=== PATIENT | female | born 1975 | race Caucasian/White ===

== ENCOUNTER 2017-04-14 12:39 | Inpatient (IN) | payer MEDICAID ==
[~2017-04-14] VITALS: Ht 175.3 cm; Wt 139.4 kg
[~2017-04-14 12:39] MED LIST: ALBUTEROL-200 PUFFS/ IH; DILAUDID4 MG PO; HYDROCHLOROTHIA25 M1 PO; LIPITOR40 MG PO; LISINOPRIL 10MG10 MG PO; NICOTINE T21 MG/24 H TD; PHENERGAN 25MG.25 M1 PO; SYMBICORT1 AER IH
[2017-04-14 12:46] VITALS: BP 190/100
[2017-04-14] MEDS ORDERED: COZAAR50 MG PO (12:53)
[2017-04-14] MEDS ORDERED: GABAPENTIN300 M1 PO (12:53)
[2017-04-14] MEDS ORDERED: ATORVASTATIN CA40 MG PO (12:53)
[2017-04-14] MEDS ORDERED: CARVEDILOL6.25 MG PO (12:54)
[2017-04-14] MEDS ORDERED: VOLTAREN50 MG PO (12:54)
[2017-04-14 13:14] LABS: LYMPH # 2.1 K/mm3 (0.7-4.5); LYMPH % 21.7 % (10-50.0)
--- NOTE | 2017-04-14 13:22 | RADIOLOGY REPORT PS360 ---
CHEST-PORTABLE HISTORY: Shortness of air SOA ORDERING PHYSICIAN: PATIENT AGE: 41 years COMPARISON: None available FINDINGS: The cardiomediastinal silhouette and pulmonary vascularity are within normal limits. There are increased markings in the left lung base and the right infrahilar region which may be due to atelectasis and/or infiltrate. Upright PA and lateral chest may be of further value to confirm these findings. The upper lobes are clear. No acute bony anomalies. IMPRESSION: Atelectasis or infiltrate in the right infrahilar region and left lung base.
[2017-04-14 13:24] LABS: HEMOGLOBIN 15.3 g/dL (12.2-16.2)
--- OUTSIDE RECORDS SUMMARY | 2017-04-14 13:24 | External Medical Summary Rpt | CCD ---
Author Author , LEAH LYNN Address Unknown Phone [email or web address] Purpose Continuity of Care Document - 02-23-2013 through 2016 Results Labs Lab Lab Date Result Refere Interp Status Commen Order Detail nces retati t Range on Bacteria identified in Blood by Culture (05-28-2015 13:07) STATUS PRELIMI complet 015 NARY ed 13:07 RESULT NO complet 015 GROWTH ed 13:07 AT 1 DAY RESULTE LMM complet D BY 015 ed 13:07 STATUS FINAL complet 015 ed 13:07 RESULT NO complet 015 GROWTH ed 13:07 5 DAYS RESULTE MDA complet D BY 015 ed 13:07 SEND Y complet PHARM/I 015 ed C 13:07 SEND TO Y complet ER 015 ed 13:07 Bacteria identified in Blood by Culture (05-28-2015 12:38) STATUS PRELIMI complet 015 NARY ed 12:38 RESULT NO complet 015 GROWTH ed 12:38 AT 1 DAY RESULTE LMM complet D BY 015 ed 12:38 STATUS FINAL complet 015 ed 12:38 RESULT NO complet 015 GROWTH ed 12:38 5 DAYS RESULTE MDA complet D BY 015 ed 12:38 SEND Y complet PHARM/I 015 ed C 12:38 SEND TO Y complet ER 015 ed 12:38 Comprehensive metabolic 1998 panel in Serum or Plasma (05-28-2015 12:38) Sodium 136 136 - complet [Moles/ 015 mmol/L 145 ed volume] 12:38 in Serum or Plasma Potassi 3.9 3.5 - complet um 015 mmol/L 5.1 ed [Moles/ 12:38 volume] in Serum or Plasma Chlorid 98 98 - complet e 015 mmol/L 107 ed [Moles/ 12:38 volume] in Serum or Plasma Carbon 29 21 - 32 complet dioxide 015 mmol/L ed , total 12:38 [Moles/ volume] in Blood Anion 13 5 - 15 complet gap in 015 mmol/L ed Serum 12:38 or Plasma Glucose 111 70 - complet 015 mg/dl 120 ed [Mass/v 12:38 olume] in Serum or Plasma Urea 7 mg/dl 7 - 18 complet nitroge 015 ed n 12:38 [Mass/v olume] in Serum or Plasma Creatin 0.8 0.6 - complet ine 015 mg/dl 1.3 ed [Mass/v 12:38 olume] in Serum or Plasma AGE [age] yrs complet 015 ed 12:38 GFR >60 complet 015 ed 12:38 Urea 9 ratio 6 - 25 complet nitroge 015 ed n/Creat 12:38 inine [Mass ratio] in Serum or Plasma Osmolal 271 272 - Low complet ity of 015 295 ed Unspeci 12:38 fied specime n Calcium 9.1 8.5 - complet 015 mg/dl 10.1 ed [Mass/v 12:38 olume] in Serum or Plasma Bilirub 0.4 0.2 - complet in.tota 015 mg/dl 1.0 ed l 12:38 [Mass/v olume] in Serum or Plasma Asparta 16 IU/L 15 - 37 complet te 015 ed aminotr 12:38 ansfera se [Enzyma tic activit y/volum e] in Serum or Plasma Alanine 32 IU/L 12 - 78 complet 015 ed aminotr 12:38 ansfera se [Enzyma tic activit y/volum e] in Serum or Plasma Alkalin 63 IU/L 46 - complet e 015 116 ed phospha 12:38 tase [Enzyma tic activit y/volum e] in Serum or Plasma Protein 8.1 6.4 - complet 015 g/dl 8.2 ed [Mass/v 12:38 olume] in Serum or Plasma Albumin 3.6 3.4 - complet 015 g/dl 5.0 ed [Mass/v 12:38 olume] in Serum or Plasma Albumin 4.5 1.3 - High complet /Globul 015 g/dl 3.5 ed in 12:38 [Mass ratio] in Serum or Plasma Albumin 0.8 1.0 - Low complet /Globul 015 ratio 3.9 ed in 12:38 [Mass ratio] in Serum or Plasma Natriutietic peptide B [Mass/volume] in Serum or Plasma (05-28-2015 12:38) Natriut 82 0 - 131 complet ietic 015 pg/ml ed peptide 12:38 B [Mass/v olume] in Serum or Plasma Additio NO complet nal 015 ed comment 12:38 s RFC CBC W DIFF AUTOMATED (05-28-2015 12:38) Leukocy 13.8 4.5 - High complet dixon 015 K/uL 11.5 ed [#/volu 12:38 me] in Blood by Automat ed count Erythro 5.35 4.00 - complet cytes 015 M/uL 5.40 ed [#/volu 12:38 me] in Blood by Automat ed count Hemoglo 15.7 12.0 - High complet bin 015 g/dL 15.0 ed [Mass/v 12:38 olume] in Blood Hematoc 46 % 35 - 49 complet rit 015 ed [Volume 12:38 Fractio n] of Blood by Automat ed count Erythro 86.5 fL 80.0 - complet cyte 015 100 ed mean 12:38 corpusc ular volume [Entiti c volume] by Automat ed count Erythro 29.3 pg 26.0 - complet cyte 015 32.0 ed mean 12:38 corpusc ular hemoglo bin [Entiti c mass] by Automat ed count Erythro 33.9 32.0 - complet cyte 015 g/dL 36.0 ed mean 12:38 corpusc ular hemoglo bin concent ration [Mass/v olume] in Blood from Fetus by Automat ed count Erythro 14.7 % 11.5 - High complet cyte 015 14.5 ed distrib 12:38 ution width [Ratio] by Automat ed count Platele 373 150 - complet ts 015 K/uL 450 ed [#/volu 12:38 me] in Blood by Automat ed count Lymphoc 20.7 % 18.0 - complet ytes/10 015 42.0 ed 0 12:38 leukocy dixon in Blood by Automat ed count Monocyt 4.9 % 2.0 - complet es/100 015 11.0 ed leukocy 12:38 dixon in Blood by Automat ed count Neutrop 72.8 % 50.0 - High complet hils.ba 015 70.0 ed nd 12:38 form/10 0 leukocy dixon in Blood by Manual count Eosinop 1.10 % 1.00 - complet hils/10 015 3.00 ed 0 12:38 leukocy dixon in Blood by Automat ed count Basophi 0.50 % 0.00 - complet ls/100 015 2.00 ed leukocy 12:38 dixon in Blood by Automat ed count Lymphoc 2.84 0.60 - complet ytes/10 015 K/uL 3.40 ed 0 12:38 leukocy dixon in Blood by Automat ed count Monocyt 0.67 0.00 - complet es/100 015 K/uL 0.90 ed leukocy 12:38 dixon in Blood by Automat ed count Neutrop 10.02 2.00 - High complet hils.ba 015 K/uL 6.90 ed nd 12:38 form/10 0 leukocy dixon in Blood by Manual count Eosinop 0.15 0.00 - complet hils/10 015 K/uL 0.70 ed 0 12:38 leukocy dixon in Blood by Automat ed count Basophi 0.07 0.00 - complet ls/100 015 K/uL 0.20 ed leukocy 12:38 dixon in Blood by Automat ed count Manual NOT complet differe 015 INDICAT ed ntial 12:38 ED perform ed [Presen ce] in Blood [id number] (02-23-2013 11:19) *GFR complet 013 only ed 11:19 applies to adults over the age 18. 02-23- If complet 013 patient ed 11:19 is [place] n, multipl y GFR by 1.120. Normal complet 013 Range: ed 11:19 60 Ml/min/ 1.73 sq meters GLOMERU complet 013 LAR ed 11:19 FILTRAT ION RATE INTERPR ETATION A/G 0.9 1.0 - Below complet RATIO 013 ratio 3.90 low ed 11:19 normal GLOBULI 4.1 1.30 - Above complet N 013 g/dl 3.50 high ed 11:19 normal ALBUMIN 3.5 3.40 - complet 013 g/dl 5.0 ed 11:19 TOTAL 7.6 6.40 - complet PROTEIN 013 g/dl 8.20 ed 11:19 ALK 74 IU/L 50 - complet PHOS 013 136 ed 11:19 ALT 20 IU/L 12 - 78 complet (SGPT) 013 ed 11:19 AST 10 IU/L 15 - 37 Below complet (SGOT) 013 low ed 11:19 normal TOTAL 0.3 0.20 - complet BALDOMERO 013 mg/dl 1.0 ed 11:19 CALCIUM 8.8 8.50 - complet 013 mg/dl 10.10 ed 11:19 GFR 60 complet 013 ml/min ed 11:19 AGE [age] yrs complet 013 ed 11:19 CREATIN 1.0 0.60 - complet INE 013 mg/dl 1.30 ed 11:19 BUN 7 mg/dl 7 - 18 complet 013 ed 11:19 GLUCOSE 02-23- 99 70 - complet 013 mg/dl 120 ed 11:19 ANION 02-23- 13 5 - 15 complet GAP 013 mmol/L ed 11:19 TOTAL 02-23- 27 21 - 32 complet CO2 013 mmol/L ed 11:19 CHLORID 02-23- 103 98 - complet E 013 mmol/L 107 ed 11:19 POTASSI 09-17-2 4.2 3.50 - complet UM 013 mmol/L 5.10 ed 11:19 SODIUM 17-2 139 136 - complet 013 mmol/L 145 ed 11:19 [id number] (02-23-2013 11:19) Manual -17-2 NOT complet Diff 013 INDICAT ed 11:19 ED BA# 09-17-2 0.03 0.00 - complet 013 K/uL 0.20 ed 11:19 EO# 09-17-2 0.07 0.00 - complet 013 K/uL 0.70 ed 11:19 NE# 09-17-2 5.00 2.00 - complet 013 K/uL 6.90 ed 11:19 MO# 09-17-2 0.49 0.00 - complet 013 K/uL 0.90 ed 11:19 LY# 09-17-2 2.08 0.60 - complet 013 K/uL 3.40 ed 11:19 BA% 09-17-2 0.40 % 0.00 - complet 013 2.50 ed 11:19 EO% 09-17-2 0.90 % 0.00 - complet 013 7.00 ed 11:19 NE% 09-17-2 65.2 % 37.0 - complet 013 80.0 ed 11:19 MO% 09-17-2 6.4 % 0.0 - complet 013 12.0 ed 11:19 LY% -17-2 27.1 % 10.0 - complet 013 50.0 ed 11:19 PLT 02-23-2 417 142 - complet 013 K/uL 424 ed 11:19 RDW 02-23-2 15.7 % 11.60 - Above complet 013 14.80 high ed 11:19 normal MCHC 02-23-2 32.2 31.80 - complet 013 g/dL 35.40 ed 11:19 MCH 17-2 25.7 pg 27.0 - Below complet 013 31.20 low ed 11:19 normal MCV 02-23- 79.9 fL 80.0 - Below complet 013 97.0 low ed 11:19 normal HCT 02-23-2 41 % 37.70 - complet 013 53.70 ed 11:19 HGB 02-23-2 13.2 12.20 - complet 013 g/dL 18.10 ed 11:19 RBC 5.13 4.04 - complet 013 M/uL 6.13 ed 11:19 WBC 7.7 4.60 - complet 013 K/uL 10.20 ed 11:19 Comprehensive metabolic 1998 panel in Serum or Plasma (02-23-2013 11:19) Sodium 139 136 - complet [Moles/ 013 mmol/L 145 ed volume] 11:19 in Serum or Plasma Potassi 4.2 3.50 - complet um 013 mmol/L 5.10 ed [Moles/ 11:19 volume] in Serum or Plasma Chlorid 103 98 - complet e 013 mmol/L 107 ed [Moles/ 11:19 volume] in Serum or Plasma TOTAL 27 21 - 32 complet CO2 013 mmol/L ed 11:19 ANION 13 5 - 15 complet GAP 013 mmol/L ed 11:19 Glucose 99 70 - complet 013 mg/dl 120 ed [Mass/v 11:19 olume] in Serum or Plasma Urea 7 mg/dl 7 - 18 complet nitroge 013 ed n 11:19 [Mass/v olume] in Serum or Plasma Creatin 1.0 0.60 - complet ine 013 mg/dl 1.30 ed [Mass/v 11:19 olume] in Serum or Plasma AGE 09 37 yrs complet 013 ed 11:19 GFR 60 complet 013 ml/min ed 11:19 Calcium 8.8 8.50 - complet 013 mg/dl 10.10 ed [Mass/v 11:19 olume] in Serum or Plasma Bilirub 0.3 0.20 - complet in.tota 013 mg/dl 1.0 ed l 11:19 [Mass/v olume] in Serum or Plasma Asparta 10 IU/L 15 - 37 Low complet te 013 ed aminotr 11:19 ansfera se [Enzyma tic activit y/volum e] in Serum or Plasma Alanine 20 IU/L 12 - 78 complet 013 ed aminotr 11:19 ansfera se [Enzyma tic activit y/volum e] in Serum or Plasma Alkalin 74 IU/L 50 - complet e 013 136 ed phospha 11:19 tase [Enzyma tic activit y/volum e] in Serum or Plasma Protein 7.6 6.40 - complet 013 g/dl 8.20 ed [Mass/v 11:19 olume] in Serum or Plasma Albumin 3.5 3.40 - complet 013 g/dl 5.0 ed [Mass/v 11:19 olume] in Serum or Plasma GLOBULI 4.1 1.30 - High complet N 013 g/dl 3.50 ed 11:19 A/G 0.9 1.0 - Low complet RATIO 013 ratio 3.90 ed 11:19 GLOMERU complet 013 LAR ed 11:19 FILTRAT ION RATE INTERPR ETATION Normal complet 013 Range: ed 11:19 60 Ml/min/ 1.73 sq meters If complet 013 patient ed 11:19 is [place] n, multipl y GFR by 1.120. *GFR complet 013 only ed 11:19 applies to adults over the age 18. [id number] (02-23-2013 11:19) Leukocy 7.7 4.60 - complet dixon 013 K/uL 10.20 ed [#/volu 11:19 me] in Blood by Automat ed count Erythro 5.13 4.04 - complet cytes 013 M/uL 6.13 ed [#/volu 11:19 me] in Blood by Automat ed count Hemoglo 13.2 12.20 - complet bin 013 g/dL 18.10 ed [Mass/v 11:19 olume] in Blood Hematoc 41 % 37.70 - complet rit 013 53.70 ed [Volume 11:19 Fractio n] of Blood by Automat ed count Erythro 79.9 fL 80.0 - Low complet cyte 013 97.0 ed mean 11:19 corpusc ular volume [Entiti c volume] by Automat ed count Erythro 25.7 pg 27.0 - Low complet cyte 013 31.20 ed mean 11:19 corpusc ular hemoglo bin [Entiti c mass] by Automat ed count Erythro 32.2 31.80 - complet cyte 013 g/dL 35.40 ed mean 11:19 corpusc ular hemoglo bin concent ration [Mass/v olume] by Automat ed count Erythro 15.7 % 11.60 - High complet cyte 013 14.80 ed distrib 11:19 ution width [Ratio] by Automat ed count Platele 417 142 - complet ts 013 K/uL 424 ed [#/volu 11:19 me] in Blood by Automat ed count Lymphoc 27.1 % 10.0 - complet ytes/10 013 50.0 ed 0 11:19 leukocy dixon in Blood by Automat ed count Monocyt 6.4 % 0.0 - complet es/100 013 12.0 ed leukocy 11:19 dixon in Blood by Automat ed count Neutrop 65.2 % 37.0 - complet hils.ba 013 80.0 ed nd 11:19 form/10 0 leukocy dixon in Blood by Manual count Eosinop 0.90 % 0.00 - complet hils/10 013 7.00 ed 0 11:19 leukocy dixon in Blood by Automat ed count Basophi 0.40 % 0.00 - complet ls/100 013 2.50 ed leukocy 11:19 dixon in Blood by Automat ed count Lymphoc 2.08 0.60 - complet ytes/10 013 K/uL 3.40 ed 0 11:19 leukocy dixon in Blood by Automat ed count Monocyt 0.49 0.00 - complet es/100 013 K/uL 0.90 ed leukocy 11:19 dixon in Blood by Automat ed count Neutrop 5.00 2.00 - complet hils.ba 013 K/uL 6.90 ed nd 11:19 form/10 0 leukocy dixon in Blood by Manual count Eosinop 0.07 0.00 - complet hils/10 013 K/uL 0.70 ed 0 11:19 leukocy dixon in Blood by Automat ed count Basophi 0.03 0.00 - complet ls/100 013 K/uL 0.20 ed leukocy 11:19 dixon in Blood by Automat ed count Manual NOT complet Diff 013 INDICAT ed 11:19 ED
--- OUTSIDE RECORDS SUMMARY | 2017-04-14 13:24 | External Medical Summary Rpt | CCD ---
Author Author , LEAH LYNN Address Unknown Phone [email or web address] Purpose Continuity of Care Document - 02-23-2013 [...] ED perform ed [Presen ce] in Blood [id number] (02-23-2013 11:19) *GFR complet 013 only ed [...] - complet 013 mmol/L 145 ed 11:19 [id number] (02-23-2013 11:19) Manual -17-2 NOT complet Diff [...] applies to adults over the age 18. 51695-0 (02-23-2013 11:19) Leukocy 7.7 4.60 - complet [...]
--- NOTE | 2017-04-14 13:26 | Emergency Room Report ---
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 N Clinical Suspician of Infection? N Mental Status: 1 - Regular (Normal Baseline) Sepsis Risk:Possible Sepsis Risk Have you (or family members/close friends) recently traveled outside the [place]? N If Yes, where/when: Have you had exposure to infectious disease within the past month? N TB? Other? Specify: Increased SOB, CXR negative last week per patient report (ordered by PCP); patient received steroid injection last week, and is taking albuterol and Symbicort. Arrives tachypneic, hypoxic, mild respiratory distress, bronchitic cough. Is a smoker. Not sedentary, no OCP ([facility]), no recent travel, no calf pain but hx fibromyalgias, no change in nature of chronic pain syndrome. She has been on inhalers for a little over a year per PCP but denies hx of asthma. ALLERGIES Coded Allergies: latex (Mild, 04/14/17) Home Medications Reported Medications Gabapentin 300 MG PO BID #270 Atorvastatin Calcium 40 MG PO QHS #30 Losartan Potassium (Cozaar) 50 MG OR DAILY Carvedilol (Coreg 3.125MG) 3.125 MG PO BID Diclofenac Sodium (Voltaren 50mg) 50 MG PO DAILY Hydrochlorothiazide (Microzide) 12.5 MG PO EVENINGS Atorvastatin Calcium (Lipitor 20MG) 20 MG PO DAILY BUDESONIDE/FORMOTEROL FUMARATE (Symbicort 80-4.5 Mcg Inhaler) 1 PUFF IH BID Albuterol (Albuterol-Hfa Inhaler) 1 PUFF IH History Medical History General CAD? No Angina: No [place]: No Hypertension? Yes Hyperlipidemia? Yes CHF? Yes DVT? No PE? No COPD? Yes Asthma? No Anemia? No GERD? No Gastric ulcers? No GI Bleed? No Hernia? No Thyroid Problems? No Hypothyroidism? No CVA? No Seizures? No Diabetes? No Renal Insuffiency? No End Stage Renal Disease? No UTI? No Stones? No BPH? No GB Disease: No Nephritic Syndrome? No Asplenia? No Hepatitis? No Sickle Cell Disease? No Arthritis? No Migraines? No Cataracts? No Glaucoma? No MRSA? No HIV? No TB? No Anxiety? No Depression? No Cancer? 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 LMP N/A Family History Family Hx Diabetes Yes CAD Yes Hypertension Yes Hyperlipidemia Yes Cancer Yes TB No Social History Smoking Hx Smoker: Current Every Day Smoker Tobacco: Yes Type Cigarettes Packs/day 1 1/2 - 2 Packs Alcohol Alcohol: No Review of Systems All Other Systems Reviewed and Negative Respiratory see HPI, other (on inhalers x about a year) Physical Exam Vital Signs Vital Signs Date Time Temp Pulse Resp B/P Pulse O2 O2 Flow FiO2 Ox Delivery Rate 04/14 1443 95 24 180/70 91 5 04/14 1335 91 24 185/90 92 5 04/14 1246 98.3 90 24 190/100 90 3 General Appearance normal appearance, WD/WN, mild distress Eye Exam - bilateral eye normal exam, bilateral eye PERRL, bilateral eye abnormal EOM Neck normal inspection, non-tender, supple, full range of motion Respiratory Status Yes: respiratory distress, trachea midline, chest symmetrical, non tender chest, use of accessory muscles, non productive cough (bronchitic cough, tight). No: tender on palpation, pain on inspiration, pain on expiration, productive cough. Lung Sounds bilateral: normal breath sounds, lungs clear, decreased breath sounds. Cardiovascular normal exam, regular rate/rhythm, no peripheral edema, no gallop, no JVD, no murmur, no rub, normal peripheral pulses Peripheral Pulses Pulses normal Yes Gastrointestinal normal bowel sounds, normal exam, non tender, soft, no organomegaly, no guarding (obese) Extremities non-tender, normal range of motion, normal inspection, normal capillary refill, no calf tenderness, no pedal edema Strength 5 Upper Ext (L), 5 Upper Ext (R), 5 Lower Ext (L), 5 Lower Ext (R) Neurologic alert, normal exam, no motor/sensory deficits, oriented x 3 (speech clear and fluent,alert) Glascow Coma Scale Glascow Coma Scale Response Value EYE response: 4 Spontaneously 4 MOTOR response: 6 OBEYS 6 VERBAL response: 5 Oriented & Converses 5 Total 15 Skin intact, normal color, warm/dry Medical Decision Making LABS/Meds/Orders Pt receiving controlled substance in ED? No Results/Orders Laboratory Tests 04/14/17 1300: Lactic Acid 1.8 04/14/17 1300: Sodium 135 L, Potassium 3.9, Chloride 99, Carbon Dioxide 30, BUN 5 L, Creatinine 0.8, Estimated Creat Clear 202 H, Estimated GFR (MDRD) 78, Glucose 92, Calcium 9.3, Total Bilirubin 0.5, AST 15, ALT 24, Alkaline Phosphatase 77, Creatine Kinase 74, CK-MB (CK-2) Rel Index 0.7, CK and CKMB Interp < 0.5, Troponin I < 0.02, Total Protein 8.4 H, Albumin 3.7, Globulin 4.7 H, Albumin/ Globulin Ratio 0.8 L, D-Dimer < 100, WBC 9.9, RBC 5.13, Hgb 15.3, Hct 46.3, MCV 90.3, RDW 14.2, Plt Count 353, MPV 6.5 L, Gran % 72.1, Gran # 7.1, Lymphocytes % 21.7, Monocytes % 4.6, Eosinophils % 1.0, Basophils % 0.6, Lymphocytes # 2.1, Monocytes # 0.5, Eosinophils # 0.1, Basophils # 0.1, PUBS MCHC 32.8, MCH 29.6 Current Medication Orders Sig/Tati Start time Last Medication Dose Route Stop Time Status Admin Ceftriaxone Sodium 0 .STK-MED ONE 04/14 133 DC IV Methylprednisolone 0 .STK-MED ONE 04/14 1332 DC Sodium Succinate .ROUTE Sodium Chloride 50 ML .STK-MED ONE 04/14 1331 DC IV Ceftriaxone Sodium 1 GM ONCE ONE 04/14 1330 DC 04/14 Sodium Chloride 50 ML IV 04/14 1359 1334 Methylprednisolone 125 MG ONCE ONE 04/14 1330 DC 04/14 Sodium Succinate IV 04/14 1331 1333 Albuterol/Ipratropium 0 .STK-MED ONE 04/14 1251 DC INH Albuterol/Ipratropium 3 ML ONCE ONE 04/14 1245 DC 04/14 INH 04/14 1246 1257 Sodium Chloride 10 ML PRN PRN 04/14 1245 AC IV 04/15 1245 Orders Procedure Date/time Status Decision to admit 04/14 1447 Active RT Aerosol Treatment, Provide 04/14 1258 Active ELECTROCARDIOGRAM REQUEST 04/14 124 Active RT REQUEST DUONEB 04/14 1246 Active IV SALINE LOCK 04/14 124 Active CULTURE, BLOOD 04/14 124 Active LACTIC ACID 04/14 124 Complete D-DIMER 04/14 124 Complete CBC WITH AUTO DIFF 04/14 124 Complete CARDIAC ENZYMES 04/14 124 Complete CHEM 12 PROFILE 04/14 124 Complete 12 LEAD [facility] (INITIAL) 04/14 UNK Active CM/EKG CM/EKG EKG rate, NSR, rhythm, no evid. of ischemic chgs, no ectopy, normal QRS, normal VA, normal EKG (NSR 91) XRAY/CT/US XRAY/CT/US XR interpretation by reviewed by me (report reviewed) Xray Results abnormal, atelectasis vs infiltrate LLL and R perihilar per report;( prior CXR had been obtained at [facility] last week; patient indicates it was negative.) Pulmonary Embolism Score WELL'S CRITERIA FOR PE WELL'S CRITERIA FOR PE Response Value Clinical signs/symptoms of DVT NO 0 PE is #1 diagnosis or equally likely NO 0 Heart rate is > 100 NO 0 Immobile at least 3 days, or surgery in past 4 wks NO 0 Previously, obj. diagnosed PE or DVT NO 0 Hemoptysis NO 0 Malignancy w/Rx within 6mo, or palliative NO 0 Total 0 Progress ED Progress Notes Date 04/14/17 Time 1537 Comment Sats in low 90's on oxygen; very tachypneic with any movement but no wheezing. Departure Departure Time of Disposition 1451 Disposition Still a Patient Clinical Impression Primary Impression: Reactive airway disease with wheezing with acute exacerbation Qualifiers: Asthma severity: mild Asthma persistence: intermittent Qualified Code: J45.21 - Mild intermittent asthma with (acute) exacerbation Secondary Impressions: Pneumonia Qualifiers: Pneumonia type: due to unspecified organism Laterality: bilateral Lung location: lower lobe of lung Qualified Code: J18.9 - Pneumonia, unspecified organism Condition STABLE ED Critical Care Critical Care No at 1538
--- OUTSIDE RECORDS SUMMARY | 2017-04-14 13:28 | External Medical Summary Rpt | CCD ---
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, Un[facility] Unavailable Unavailable [facility] JEREMIAH CARSON, JEREMIAH CARSON Unavailable Unavailable [facility], [facility]available Unavailable [facility] Unavailable Unavailable INC, [facility] Unavailable Unavailable HOSPITAL P, [facility] MALKA APPIAH, Unavailable Unavailable MALKA APPIAH [facility], Unavailable Unavailable [facility] KMSF NURSE Unavailable Unavailable PRACTITIONER GR, KMSF NURSE PRACTITIONER GR [facility] [place] Unavailable Unavailable [facility], [facility] [place] Unavailable Unavailable [place] [facility], [facility] [place] [facility] Unavailable [facility] Unavailable Unavailable CH[facility]OPRACTI, [facility] Unavailable Unavailable ASSOCIAT, [facility] Unavailable [facility]available [facility] JAMEEL MOODY MD Unavailable Unavailable CONSULTING SERVJAMEEL MD CONSULTING SERV JAMEEL MOODY MD Unavailable Unavailable CONSULTING SRVJAMEEL MD CONSULTING SRV [facility] Unavailable [facility], Unavailable Unavailable [facility] CLARKE BARRY MD Unavailable Unavailable PSCCLARKE MD P[facility] SCALF LEI, SCALF LEI Unavailable Unavailable SCIFRES, SCIFRES Unavailable Unavailable [facility] Unavailable Unavailable [facility], [facility] Unavailable Unavailable MEDIC, [facility] Unavailable Unavailable RADIOLOG, [facility] Unavailable Unavailable [facility]PITALS, [facility], Unavailable Unavailable [facility] Unavailable [facility] MARY CARMEN NEGRO, Unavailable Unavailable MARY CARMEN NEGRO Purpose Continuity of Care Document - 07-28-2007 through 2016 Problems Code Diagnosis DOS Provider Status [id number] MORBID 02-27-2017 [facility] OBESITY DUE TO EXCESS CALORIES J020 STREPTOCOCC 02-14-2017 [facility] PHARYNGITIS N644 MASTODYNIA 12-23-2016 [facility] [place] [facility] [id number] PAIN IN 11-25-2016 [facility] RIGHT [facility]INIC SHOULDER G4733 OBSTRUCTIVE 10-19-2016 [facility]ATRIC EQUIPME M2550 PAIN IN 10-09-2016 S NURSE UNSPECIFIED PRACTITIONE JOINT R GR M797 FIBROMYALGI 10-09-2016 [facility] A PRACTITIONE R GR Z6842 BODY MASS 10-09-2016 S NURSE INDEX BMI PRACTITIONE 45.0-49.9 R GR ADULT M549 DORSALGIA 09-19-2016 [facility] UNSPECIFIED [facility]ICAL EQUIPME G4710 HYPERSOMNIA 09-06-2016 JAMEEL MOODY MD UNSPECIFIED CONSULTING SRV E785 HYPERLIPIDE 08-29-2016 [facility] MICHELE [place] UNSPECIFIED HOLDINGS G479 SLEEP 08-29-2016 [facility] DISORDER [facility] UNSPECIFIED I10 ESSENTIAL 08-29-2016 [facility] HYPERTENSIO N R5383 OTHER 08-29-2016 [facility] FATIGUE [place] [facility] R7309 OTHER 08-29-2016 [facility] ABNORMAL [place] GLUCOSE HOLDINGS Z720 TOBACCO USE 08-29-2016 [facility] Z8639 PERSONAL HX 08-29-2016 [facility] OT [facility] ENDOCRN NUTRITIONL& METAB DISEASE H5213 MYOPIA 08-16-2016 [facility] BILATERAL H524 PRESBYOPIA 08-16-2016 SC[facility] R911 SOLITARY 07-05-2016 [place] [facility] R918 OTHER 07-05-2016 [facility] [place] NONSPECIFIC [facility] ABNORMAL FINDING OF LUNG FIELD E7800 PURE 07-01-2016 [facility] UNSPECIFIED J449 CHRONIC 07-01-2016 [facility]CT[facility] N [facility]ERG[facility]Y PULMONARY PHYS DISEASE UNS M940 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 [facility] AL JUNCTION N EMERGENCY SYNDROME PHYS TIETZE R0602 SHORTNESS 07-01-2016 [facility] OF BREATH CLINIC R0789 OTHER CHEST 07-01-2016 [facility] PAIN N EMERGENCY PHYS Z12421 OTHER LONG 07-01-2016 [facility] DRUG THERAPY Z888 ALLERGY 07-01-2016 [facility] L60034 LATEX 07-01-2016 [facility] R0989 OT SPEC SX 06-28-2016 [facility] & SIGNS CLINIC INVLV THE CIRC & RESP SYS R05 COUGH 06-05-2016 [facility] [place] [facility] R0689 OTHER 06-05-2016 [facility] ABNORMALITI [facility]INIC ES OF BREATHING R509 FEVER 06-05-2016 [facility] [place] UNSPECIFIED RADIOLOGY M5116 INTERVERTEB 05-13-2016 [facility] W/RADICULOP ATHY LUMB RGN M5136 OT 05-13-2016 [facility] DIS[facility] HOSPI DEGEN LUMBAR REGION M545 LOW BACK 05-13-2016 [facility] Q11191 PERSONAL 05-13-2016 [facility] DEPEND[facility] C27403 PAIN IN 05-06-2016 [facility] R9431 ABNORMAL 05-06-2016 [facility] ELECTROCARD SERV IOGRAM FOUNDATION M4806 SPINAL 04-26-2016 [facility] STENOSIS SERV LUMBAR FOUNDATION REGION M5126 OT 04-26-2016 [facility] RAL DISC DISPLACEMEN T LUMBAR RGN M5416 RADICULOPAT 04-26-2016 [facility] HOSPITAL REGION J3489 OTHER 04-25-2016 [facility] SPECIFIED [facility] DISORDERS NOSE AND NASAL SINUSES Z23 ENCOUNTER 03-21-2016 [facility] FOR [facility]INIC IMMUNIZATIO N M6281 MUSCLE 03-15-2016 S NURSE WEAKNESS PRACTITIONE GENERALIZED R GR R200 ANESTHESIA 03-15-2016 [facility] R32 UNSPECIFIED 03-15-2016 S NURSE URINARY PRACTITIONE INCONTINENC R GR E M5430 SCIATICA 03-08-2016 [facility] UNSPECIFIED SERV SIDE FOUNDATION M5440 LUMBAGO 03-08-2016 [facility] WITH SERV SCIATICA FOUNDATION UNSPECIFIED SIDE M5417 RADICULOPAT 02-20-2016 [facility] LUMBOSACRAL MEDIC REGION M2578 OSTEOPHYTE 02-16-2016 [facility] M4807 SPINAL 02-16-2016 [facility] LUMBOSACRAL RADIOLOG REGION M5117 INTERVERTEB 02-16-2016 [facility] RAL DISC REGIONAL D/O MEDIC W/RADICULOP ATHY LS RGN M5127 OTH 02-16-2016 [facility] INTERVERTEB REGIONAL RAL DISC RADIOLOG DISPLACEMEN T LS REGION M7062 TROCHANTERI 02-07-2016 [facility] REGIONAL LEFT HIP MEDIC E37650 STIFFNESS 02-03-2016 [facility] OF RIGHT FAMILY HIP NOT CHIROPRACTI ELSEWHERE CLASSIFIED F43701 STIFFNESS 02-03-2016 [facility] OF LEFT HIP FAMILY NOT CHIROPRACTI ELSEWHERE CLASSIFIED M5137 OTH 02-03-2016 [facility] INTERVERTEB FAMILY RAL DISC CHIROPRACTI DEGEN LUMBOSACRAL REGION M532X7 SPINAL 02-03-2016 [facility] INSTABILITI FAMILY ES CHIROPRACTI LUMBOSACRAL REGION M5432 SCIATICA 02-03-2016 [facility] LEFT SIDE FAMILY CHIROPRACTI M9903 SEGMENTAL & 02-03-2016 [facility] 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 M9904 SEGMENTAL & 02-03-2016 [facility] SOMATIC 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 SACRAL REGION I45541 PAIN IN 01-30-2016 LAB [facility] UNSPECIFIED [place] HIP HOLDINGS L732 HIDRADENITI 12-14-2015 SCALF LEI S SUPPURATIVA U16571 PAIN IN 12-01-2015 [facility] [place] LEFT HIP RADIOLOGY M5186 OTHER 12-01-2015 [facility] DISORDER LUMBAR REGION D225 MELANOCYTIC 11-13-2015 SCALF LEI NEVI OF TRUNK L578 OTH SKN 11-13-2015 SCALF LEI CHANGES D/T CHRN EXPS TO NONIONIZING RAD L814 OTHER 11-13-2015 SC[facility] LEI MELANIN HYPERPIGMEN TATION L821 OTHER 11-13-2015 [facility] SEBORRHEIC KERATOSIS L906 STRIAE 11-13-2015 [facility] LEI ATROPHICAE S00275U UNSPECIFIED 10-19-2015 [facility] LEFT ANKLE INITIAL ENCOUNTER J069 ACUTE UPPER 09-05-2015 [facility] INFECTION UNSPECIFIED H72189 CHRONIC 07-19-2015 [facility] TENSION-TYP CLINIC E HEADACHE NOT INTRACTABLE R51 HEADACHE 07-12-2015 [facility] [place] HOLDINGS J209 ACUTE 05-28-2015 DANIELS JAM BRONCHITIS UNSPECIFIED J029 ACUTE 04-25-2015 [facility] PHARYNGITIS CLINIC UNSPECIFIED J111 FLU D/T 04-25-2015 [facility] UNIDENTIFIE CLINIC D FLU VIRUS W/OTH RESP MANIF E669 OBESITY 04-03-2015 [facility] UNSPECIFIED [facility]INIC 2724 OTHER AND 11-11-2014 [facility]PEC[facility] HYPERLIPIDE MICHELE 4019 UNSPECIFIED 11-11-2014 [facility] ESSENTIAL SERV HYPERTENSIO FOUNDATION N 4139 OTHER AND 11-11-2014 [facility] UNSPECIFIED [facility]OS[facility] ANGINA INC PECTORIS 18724 CHEST PAIN 11-11-2014 [place] [facility] U[facility]PECIFIED SERV FOUNDATION 71737 HYPERTENSIV 11-07-2014 [facility] E HEART [facility] DISEASE INC UNSPEC W/HEART FAIL 52926 CORONARY 11-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 [facility] ATHEROSCLER [facility] OSIS SANTO [place]ING[place] INC CORONARY ARTERY 4168 OTHER 11-07-2014 [facility] CHRONIC [facility] PULMONARY INC HEART DISEASES 4280 CONGESTIVE 11-07-2014 [facility] HEART [facility] FAILURE INC UNSPECIFIED 4281 LEFT HEART 11-07-2014 [facility] FAILURE [facility] INC 61873 SHORTNESS 11-07-2014 [facility] OF BREATH [facility] INC 73648 OTHER CHEST 11-07-2014 [facility] PAIN [facility] 2189 LEIOMYOMA 09-02-2014 [facility] UNSPECIFIED 52788 MORBID 09-02-2014 [facility] OBESITY [facility] 5680 PERITONEAL 09-02-2014 [facility] ADHESIONS [facility] 6146 PELVIC 09-02-2014 [facility] PERITONEAL PHYSICIANS ADHESIONS, GROUP FEMALE 6212 HYPERTROPHY 09-02-2014 [facility] OF UTERUS PHYSICIANS GROUP 6243 HYPERTROPHY 09-02-2014 [facility] OF LABIA PHYSICIANS GROUP 6250 DYSPAREUNIA 09-02-2014 [facility] 6262 EXCESSIVE 09-02-2014 [facility] OR FREQUENT PHYSICIANS GROUP MENSTRUATIO N 6268 OTH D/O 09-02-2014 [facility] MENSTRUATIO ANESTH OF N&OTH ABN THE BLUE BLEED FE GNT TRACT V7283 OTHER 09-01-2014 [facility] SPECIFIED [facility] P VE EXAMINATION 99438 OBESITY, 08-09-2014 [facility] UNSPECIFIED [facility]INIC 6235 LEUKORRHEA 06-22-2014 LABORATORY NOT FLAVIO OF SPECIFIED [place] H INFECTIVE V1209 PERSONAL HX 06-22-2014 LABORATORY OTH FLAVIO OF INFECTIOUS& [place] H PARASITIC DISEASE V762 SCREENING 06-22-2014 LABORATORY FOR FLAVIO OF MALIGNANT [place] H NEOPLASM OF THE CERVIX 496 CHRONIC 05-19-2014 [facility] OBSTRUCTION NEC V0382 NEED PROPH 05-19-2014 [facility] VACCINATION [facility] AGAINST STREP PNEUMONE V829 SCREENING 05-19-2014 [facility] FOR [facility]INIC UNSPECIFIED CONDITION 38524 OTHER 05-18-2014 [facility] MALAISE AND [place] FATIGUE HOLDINGS 52099 OTHER 05-17-2014 [facility] [place] NONSPECIFIC [facility] ABNORMAL FINDING OF LUNG FIELD 7867 ABNORMAL 05-10-2014 JAMEEL HEIDY CHEST SOUNDS CONSULTING SERV 7862 COUGH 04-27-2014 [facility] [place] [facility]INGS 7906 OTHER 04-27-2014 [facility] ABNORMAL [place] BLOOD HOLDINGS CHEMISTRY 7962 ELEVATED BP 04-27-2014 LAB [facility] READING [place] WITHOUT DX HOLDINGS HYPERTENSIO N 486 PNEUMONIA, 02-21-2014 CLARKE Kemp ORGANISM JHONNY PHILLIPS UNSPECIFIED PSC 48047 ESOPHAGEAL 02-21-2014 CLARKE Kemp REFLUX JHONNY PHILLIPS PSC 7804 DIZZINESS 02-21-2014 CLARKE HERNANDEZ MD GIDDINESS PSC 39514 HYPOXEMIA 02-21-2014 CLARKE BARRY MD PSC 6253 DYSMENORRHE 04-30-2013 [facility] V2540 UNSPECIFIED 04-30-2013 [facility] VE SURVEILLANC E 5959 UNSPECIFIED 03-15-2013 CLARKE Kemp CYSTITIS JHONNY PHILLIPS PSC 35884 DIARRHEA 03-15-2013 CLARKE BARRY MD PSC 06626 OTHER 02-23-2013 [facility] DISEASES OF RADIOLOGY LUNG NOT ASSOCIAT ELSEWHERE CLASSIFIED 35801 ABDOMINAL 02-23-2013 [facility] PAIN, HOSPITAL UNSPECIFIED SITE 2449 UNSPECIFIED 02-18-2013 [facility] HYPOTHYROID ISM V700 ROUTINE 02-18-2013 [facility] MEDICAL EXAM@HEALTH CARE FACL 01180 OVERWEIGHT 02-17-2013 CLARKE BARRY MD PSC V7231 ROUTINE 02-03-2013 [facility] EXAMINATION V7381 SPECIAL 02-03-2013 [facility] EXAMINATION HUMAN PAPILVIRUS 3671 MYOPIA 01-20-2013 [facility] DIXIE 36992 UNSPECIFIED 01-20-2013 AWOSIKA DIXIE ASTIGMATISM 7245 UNSPECIFIED 11-11-2007 [facility] BACK[facility] 68955 SPASM OF 10-23-2007 [facility] MUSCLE [facility] 7218 OTHER 10-08-2007 [facility] ALLIED RADIOLOGY 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 SPINE PSC 02945 HYPERVENTIL 07-28-2007 [facility] ATION HOSP 72465 OTHER 07-28-2007 [facility] DYSPNEA AND HOSP RESPIRATORY ABNORMALITI ES Medications Na ND Rx Da Fi Fi Am Da Di Ph RX Ph St me C No te ll ll ou ys ag ar # ys at rm s nt no ma ic us Or Da si cy ia de te s n re d TO 68 09 10 30 30 00 SO Ac PI 38 -2 -2 .0 00 PE ti RA 20 1- 0- 00 00 RS ve MA 13 20 20 57 TE 91 17 17 32 FA 4 42 HI [address] WADE TA BL ET AM 66 09 10 20 10 00 SO Ac OX 68 -0 -0 .0 00 PE ti -C 51 8- 6- 00 00 RS ve LA 00 20 20 57 V 10 17 17 21 FA 87 0 46 HI 5- LY [address] MG UG TA BL ET AT 00 09 10 30 30 00 SO Ac OR 37 -1 -0 .0 00 PE ti VA 83 1- 6- [address] 95 20 20 57 AT 20 17 17 22 FA IN [address] MG UG TA BL ET SY 00 09 10 10 30 00 SO Ac MB 18 -1 -0 .1 00 PE ti IC 60 1- 6- 99 00 RS ve OR 37 20 20 57 T 02 17 17 23 FA 16 0 00 HI 0- LY 4. 5 DR SMITH G IN LÓPEZ LE R CA 68 09 09 60 30 00 SO Ac RV 38 -0 -2 .0 00 PE ti ED 20 1- 9- 00 00 RS ve IL 09 20 20 56 OL 30 17 17 96 FA 5 27 HI 6. LY 25 DR MG UG TA BL ET HY 16 09 09 [address] 72 -0 -2 .0 00 PE ti OC 90 1- 9- 00 00 RS ve HL 18 20 20 56 OR 31 17 17 96 FA OT 7 26 HI HI LY AZ ID DR Chetan OLVERA 25 MG TA B VE 00 09 09 18 20 00 SO Ac NT 17 -0 -2 .0 00 PE ti OL 30 1- 9- 00 00 RS ve IN 68 20 20 56 22 17 17 96 FA HF 0 25 HI A LY 90 DR [place] IN LÓPEZ LE R DI 61 09 09 60 30 00 SO Ac CL 44 -0 -2 .0 00 PE ti OF 20 1- 9- 00 00 RS ve EN 10 20 20 56 AC 31 17 17 96 FA 0 24 HI SO LY D DR DR OLVERA 75 MG TA B LO 65 09 09 30 30 00 SO Ac SA 86 -0 -2 .0 00 PE ti RT 20 1- 9- 00 00 RS ve AN 20 20 20 56 29 17 17 96 FA PO 9 23 HI TA LY SS IU DR Carey OLVERA 50 MG TA B GA 65 08 09 27 30 00 WA Ac BA 16 -2 -1 0. 00 L- ti PE 20 1- 5- 00 04 MA ve NT 10 20 20 0 52 RT IN 25 17 17 22 0 57 PH 30 AR 0 MA MG CY CA #4 PS 93 UL E SY 00 08 09 10 30 00 SO Ac MB 18 -0 -0 .1 00 PE ti IC 60 4- 1- 99 00 RS ve OR 37 20 20 56 T 02 17 17 20 FA 16 0 71 HI 0- LY 4. 5 DR WH[place] IN LÓPEZ LE R LO 65 08 09 30 30 00 SO Ac SA 86 -0 -0 .0 00 PE ti RT 20 4- 1- 00 00 RS ve AN 20 20 20 56 29 17 17 96 FA PO 9 23 HI TA LY SS IU DR Carey OLVERA 50 MG TA B DI 61 08 09 60 30 00 SO Ac CL 44 -0 -0 .0 00 PE ti OF 20 4- 1- 00 00 RS ve EN 10 20 20 56 AC 31 17 17 96 FA 0 24 HI SO LY D DR DR OLVERA 75 MG TA B VE 00 08 09 18 20 00 SO Ac NT 17 -0 -0 .0 00 PE ti OL 30 4- 1- 00 00 RS ve IN 68 20 20 56 22 17 17 96 FA HF 0 25 HI A LY 90 DR [place] IN LÓPEZ LE R HY 16 08 09 [address] 72 -0 -0 .0 00 PE ti OC 90 4- 1- 00 00 RS ve HL 18 20 20 56 OR 31 17 17 96 FA OT 7 26 HI HI LY AZ ID DR Chetan OLVERA 25 MG TA B CA 68 08 09 60 30 00 SO Ac RV 38 -0 -0 .0 00 PE ti ED 20 4- 1- 00 00 RS ve IL 09 20 20 56 OL 30 17 17 96 FA 5 27 HI 6. LY 25 DR MG UG TA BL ET GA 53 07 08 27 30 00 WA Ac BA 74 -2 -1 0. 00 L- ti PE 60 2- 8- 00 04 MA ve NT 10 20 20 0 52 RT IN 20 17 17 22 5 57 PH 30 AR 0 MA MG CY CA #4 PS 93 UL E VE 00 06 07 18 20 00 SO Ac NT 17 -1 -0 .0 00 PE ti OL 30 3- 7- 00 00 RS ve IN 68 20 20 56 22 17 17 21 FA HF 0 19 HI A LY 90 DR [place] IN LÓPEZ LE R LO 65 06 30 30 00 SO Ac SA 86 -0 -0 .0 00 PE ti RT 20 8- 7- 00 00 RS ve AN 20 20 20 54 19 17 17 23 FA PO 0 27 HI TA LY SS IU DR Carey OLVERA 25 MG TA B AT 00 06 07 30 30 00 SO Ac OR 37 -0 -0 .0 00 PE ti VA 83 8- 7- [address] 95 20 20 54 AT 20 17 17 23 FA IN [address] MG OLVERA TA BL ET SY 00 06 07 10 30 00 SO Ac MB 18 -0 -0 .1 00 PE ti IC 60 8- 7- 99 00 RS ve OR 37 20 20 56 T 02 17 17 20 FA 16 0 71 HI 0- LY 4. 5 DR [place] IN LÓPEZ LE R HY 16 11 13 [address] 72 -0 -0 .0 00 PE ti OC 90 8- 7- 00 00 RS ve HL 18 20 20 54 OR 31 17 17 23 FA OT 7 21 HI HI LY AZ ID DR Chetan OLVERA 25 MG TA B GA 53 06 27 30 00 WA Ac BA 74 -0 -3 0. 00 L- ti PE 60 2- 0- 00 07 MA ve NT 10 20 20 0 40 RT IN 20 17 17 71 5 94 PH 30 AR 0 MA MG CY CA #4 PS 93 UL E GA 53 05 05 27 30 00 WA Ac BA 74 -0 -2 0. 00 L- ti PE 60 3- 6- 00 07 MA ve NT 10 20 20 0 40 RT IN 20 17 17 71 5 94 PH 30 AR 0 MA MG CY CA #4 PS 93 UL E DU 57 04 30 30 00 SO Ac LO 23 -2 -1 .0 00 PE ti XE 70 4- 9- 00 00 RS ve TI 01 20 20 56 NE 89 17 17 21 FA 0 76 HI HC LY L DR DR OLVERA 30 MG CA P SY 00 04 05 10 30 00 SO Ac MB 18 -2 -1 .1 00 PE ti IC 60 1- 9- 99 00 RS ve OR 37 20 20 56 T 02 17 17 20 FA 16 0 71 HI 0- LY 4. 5 DR SMITH G IN LÓPEZ LE R CH 00 04 05 60 30 00 SO Ac AN 06 -2 -1 .0 00 PE ti TI 90 0- 9- 00 00 RS ve X 46 20 20 56 1 95 17 17 19 FA MG 6 92 HI LY TA BL DR ET UG VE 00 04 05 18 20 00 SO Ac NT 17 -2 -1 .0 00 PE ti OL 30 4- 9- 00 00 RS ve IN 68 20 20 56 22 17 17 21 FA HF 0 19 HI A LY 90 DR SMITH G IN LE R CH 00 03 04 53 28 00 SO Ac AN 06 -2 -2 .0 00 PE ti TI 90 3- 1- 00 00 RS ve X [address] 10 17 17 96 FA AR 3 08 HI TI LY NG DR MUNA OLVERA NT H [place] X SY 00 03 03 10 30 00 SO Ac MB 18 -0 -3 .1 00 PE ti IC 60 3- 1- 99 00 RS ve OR 37 20 20 54 T 02 17 17 23 FA 16 0 28 HI 0- LY 4. 5 DR [place] IN LE R LO 65 02 03 30 30 00 SO Ac SA 86 -2 -2 .0 00 PE ti RT 20 4- 4- 00 00 RS ve AN 20 20 20 54 19 17 17 23 FA PO 0 27 HI TA LY SS IU DR Patino UG 25 MG TA B CA 68 02 03 60 30 00 SO Ac RV 38 -2 -2 .0 00 PE ti ED 20 4- 4- 00 00 RS ve IL 09 20 20 54 OL 30 17 17 23 FA 5 23 HI 6. LY 25 DR MG UG TA BL ET HY 16 02 03 [address] 72 -2 -2 .0 00 PE ti OC 90 4- 4- 00 00 RS ve HL 18 20 20 54 OR 31 17 17 23 FA OT 7 21 HI HI LY AZ ID DR Chetan OLVERA 25 MG TA B AT 00 02 03 30 30 00 SO Ac OR 37 -2 -2 .0 00 PE ti VA 83 4- 4- [address] 95 20 20 54 AT 20 17 17 23 FA IN [address] MG UG TA BL ET DI 61 02 03 60 30 00 SO Ac CL 44 -2 -2 .0 00 PE ti OF 20 4- 4- 00 00 RS ve EN 10 20 20 54 AC 31 17 17 23 FA 0 26 HI SO LY D DR DR UG 75 MG TA B VE 00 02 03 18 20 00 SO Ac NT 17 -2 -2 .0 00 PE ti OL 30 4- 4- 00 00 RS ve IN 68 20 20 54 22 17 17 23 FA HF 0 19 HI A LY 90 DR MC UG G IN LÓPEZ LE R FL 00 01 02 10 5 00 SO Ac ED 05 -2 -1 .0 00 PE ti NI 40 0- 7- 00 00 RS ve SO 01 20 20 55 NE 82 17 17 41 FA 9 15 HI [address] UG TA BL ET LE 55 01 02 7. 7 00 SO Ac VO 11 -2 -1 00 00 PE ti FL 10 0- 7- 0 00 RS ve OX 28 20 20 55 AC 13 17 17 41 FA IN 0 16 HI LY [address] MG UG TA BL ET IP 69 01 02 36 30 00 SO Ac RA 09 -2 -1 0. 00 PE ti T- 70 0- 7- 00 00 RS ve AL 17 20 20 0 55 BU 36 17 17 41 FA T 4 17 HI 0. LY 5- 3( DR 2. UG 5) MG /3 ML LE 55 01 01 7. 7 00 SO Ac VO 11 -0 -2 00 00 PE ti FL 10 4- 7- 0 00 RS ve OX 28 20 20 55 AC 13 17 17 27 FA IN 0 06 HI LY [address] MG UG TA BL ET FL 57 01 01 2. 3 00 SO Ac UC 23 -0 -2 00 00 PE ti ON 70 4- 7- 0 00 RS ve AZ 00 20 20 55 OL 51 17 17 27 FA E 1 11 HI [address] UG TA BL ET BIRCH 00 12 01 48 12 00 SO Ac DO 90 -2 -2 .0 00 PE ti GE 45 8- 0- [address] 05 20 20 55 32 16 17 22 FA 30 [address] TA UG BL ET BE 67 12 01 30 10 00 SO Ac NZ 87 -2 -2 .0 00 PE ti ON 70 8- 0- 00 00 RS ve AT 10 20 20 55 AT 60 16 17 22 FA E 5 10 HI [address] UG CA PS UL E AZ 00 12 01 6. 5 00 SO Ac IT 78 -2 -2 00 00 PE ti HR 11 8- 0- 0 00 RS ve OM 49 20 20 55 YC 66 16 17 22 FA IN 8 09 HI LY [address] MG UG TA BL ET SK 60 05 05 [address] 69 No Ac EL 79 -1 -2 .0 AZ 64 t ti AX 30 6- 2- 00 A 84 Av ve IN 13 20 20 PH 8 ai 60 08 08 AR la 80 1 MA bl 0 CY e MG TA BL ET TR 65 05 05 [address] 69 No Ac AM 16 -1 -2 .0 AZ 64 t ti AD 20 6- 2- 00 A 84 Av ve OL 62 20 20 PH 9 ai 71 08 08 AR la HC 1 MA bl L CY e 50 MG TA BL ET 00 05 05 [address] 69 No Ac 09 -0 -0 .0 AZ 62 t ti 50 2- 8- 00 A 76 Av ve 08 20 20 PH 0 ai 65 08 08 AR la 1 MA bl CY e CY 59 04 05 [address] No Ac CL 74 -2 -0 .0 AZ 61 t ti OB 60 9- 8- 00 A 90 Av ve EN 17 20 20 PH 3 ai ZA 71 08 08 AR la FL 0 MA bl IN CY e E 10 MG TA BL ET OX 00 04 05 [address] 69 No Ac YC 40 -2 -0 .0 AZ 61 t ti OD 60 9- 8- 00 A 90 Av ve ON 51 20 20 PH 2 ai E- 20 08 08 AR la AC 5 MA bl ET CY e AM IN OP HE N 5- 32 5 FL 68 04 04 [address] 69 No Ac OM 38 -0 -1 .0 AZ 57 t ti ET 20 1- 0- 00 A 57 Av ve LÓPEZ 04 20 20 PH 6 ai ZI 11 08 08 AR la NE 0 MA bl CY e 25 MG TA BL ET CI 60 04 04 [address] 69 No Ac TA 50 -0 -1 .0 AZ 57 t ti LO 52 1- 0- 00 A 57 Av ve FL 52 20 20 PH 7 ai AM 00 08 08 AR la 1 MA bl HB CY e R 40 MG TA BL ET DI 00 04 04 [address] 69 No Ac AZ 59 -0 -1 .0 AZ 57 t ti EP 15 1- 0- 00 A 57 Av ve AM 61 20 20 PH 5 ai 5 90 08 08 AR la 5 MA bl MG CY e TA BL ET Encounters Encounter Start End Date Code Location Performer Type Date HOSPITAL [facility] 7 [facility] [place] [id number] 7 [facility] [place] [facility] 6 [facility] 6 6 [facility] - 6 6 [facility] 6 6 [facility] - 6 6 [facility] - 6 6 [facility] - 6 6 [facility] 6 6 [facility] 6 [facility] - 6 6 [facility] 6 [facility] - 5 5 [facility] - 5 5 [facility] - 5 5 [facility] - 5 5 [facility] 5 5 [facility] - 5 5 [facility] [place] - 4 4 [facility] - 4 4 [facility] [place] - 3 3 [facility] [place] - 8 8 [facility] [place] - [address] [facility]
--- OUTSIDE RECORDS SUMMARY | 2017-04-14 13:28 | External Medical Summary Rpt | CCD ---
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, [facility]available [facility]available [facility] Unavailable Unavailable [facility] JEREMIAH CARSON, JEREMIAH CARSON Unavailable Unavailable [facility], Unavailable Unavailable [facility] Unavailable Unavailable INC, [facility] Unavailable [facility]available H[facility]PITAL P, [facility] MALKA APPIAH, Unavailable Unavailable MALKA APPIAH [facility], Unavailable Unavailable [facility] NURSE Unavailable Unavailable PRACTITIONER GR, [facility] NURSE PRACTITIONER [facility] [place] Unavailable Unavailable [facility], [facility] [place] Unavailable Unavailable [place] [facility], [facility] [place] [facility] Unavailable Unavailable [facility] Unavailable Unavailable [facility] Unavailable Unavailable [facility], [facility] Unavailable [...] [facility] Unavailable Unavailable [facility]PITALS, [facility], Unavailable Unavailable [facility] Unavailable [facility] MARY CARMEN NEGRO, Unavailable Unavailable MARY CARMEN NEGRO Purpose Continuity of Care Document - 07-28-2007 through 2016 Problems Code Diagnosis DOS Provider Status [id number] MORBID 02-27-2017 [facility] OBESITY DUE TO EXCESS CALORIES J020 STREPTOCOCC 02-14-2017 [facility] PHARYNGITIS N644 MASTODYNIA 12-23-2016 [facility] [place] [facility] Q56404 PAIN IN 11-25-2016 [facility] RIGHT [facility]INIC SHOULDER G4733 OBSTRUCTIVE 10-19-2016 [facility] ADULT MEDICAL PEDIATRIC EQUIPME M2550 PAIN IN 10-09-2016 S NURSE UNSPECIFIED PRACTITIONE JOINT R GR M797 FIBROMYALGI 10-09-2016 [facility] NURSE A PRACTITIONE R GR Z6842 BODY [...] H524 PRESBYOPIA 08-16-2016 [facility] R911 SOLITARY 07-05-2016 [facility] R918 OTHER 07-05-2016 [facility] [place] NONSPECIFIC [facility] ABNORMAL FINDING OF LUNG FIELD E7800 PURE 07-01-2016 PSYCHIATRIC UNSPECIFIED J449 CHRONIC 07-01-2016 [facility]ERG[facility]Y PULMONARY PHYS DISEASE UNS M940 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 [facility] JUNCTION N EMERGENCY SYNDROME PHYS TIETZE R0602 SHORTNESS 07-01-2016 [facility] OF BREATH [facility]INIC R0789 OTHER CHEST 07-01-2016 [facility] PAIN N [facility]ERG[facility]Y PHYS X54621 OTHER LONG 07-01-2016 [facility] DRUG THERAPY Z888 ALLERGY 07-01-2016 [facility] BIOLOG [facility] STS [id number] LATEX 07-01-2016 [facility] R0989 OT SPEC SX 06-28-2016 [facility] SIGNS CLINIC INVLV THE CIRC & RESP SYS R05 COUGH 06-05-2016 [facility] [place] [facility] R0689 OTHER 06-05-2016 [facility] ABNORMALITI [facility]IC ES OF BREATHING R509 FEVER 06-05-2016 [facility] [place] UNSPECIFIED RADIOLOGY M5116 INTERVERTEB 05-13-2016 [facility] W/RADICULOP ATHY LUMB RGN M5136 OT 05-13-2016 [facility] HOSPI DEGEN LUMBAR REGION M545 LOW BACK 05-13-2016 [facility] [id number] PERSONAL 05-13-2016 [facility] DEPENDENCE U04479 PAIN IN 05-06-2016 [facility] R9431 ABNORMAL 05-06-2016 [facility] ELECTROCARD SERV IOGRAM [facility] M4806 SPINAL 04-26-2016 [facility] STENOSIS SERV LUMBAR FOUNDATION REGION M5126 OT 04-26-2016 [facility] RAL DISC DISPLACEMEN T LUMBAR RGN M5416 RADICULOPAT 04-26-2016 [facility] REGION J3489 OTHER 04-25-2016 [facility] SPECIFIED [facility] DISORDERS NOSE AND NASAL SINUSES Z23 ENCOUNTER 03-21-2016 [facility] FOR [facility] IMMUNIZATIO N M6281 MUSCLE 03-15-2016 S NURSE WEAKNESS PRACTITIONE GENERALIZED R GR R200 ANESTHESIA 03-15-2016 [facility] R32 UNSPECIFIED 03-15-2016 S NURSE URINARY PRACTITIONE INCONTINENC R GR E M5430 SCIATICA 03-08-2016 [facility] UNSPECIFIED SERV SIDE FOUNDATION M5440 LUMBAGO 03-08-2016 [facility] WITH SERV SCIATICA FOUNDATION UNSPECIFIED SIDE M5417 RADICULOPAT 02-20-2016 [facility] LUMBOSACRAL MEDIC REGION M2578 OSTEOPHYTE 02-16-2016 [facility] M4807 SPINAL 02-16-2016 [facility] STENOSIS REGIONAL LUMBOSACRAL RADIOLOG REGION M5117 INTERVERTEB 02-16-2016 [facility] RAL DISC REGIONAL D/O MEDIC W/RADICULOP ATHY LS RGN M5127 OTH 02-16-2016 [facility] INTERVERTEB REGIONAL RAL DISC RADIOLOG DISPLACEMEN T LS REGION M7062 TROCHANTERI 02-07-2016 [facility] C BURSITIS REGIONAL LEFT HIP MEDIC Y27295 STIFFNESS 02-03-2016 [facility] OF RIGHT FAMILY HIP NOT CHIROPRACTI ELSEWHERE CLASSIFIED I81970 STIFFNESS 02-03-2016 [facility] OF LEFT HIP FAMILY NOT CHIROPRACTI ELSEWHERE CLASSIFIED M5137 OTH 02-03-2016 [facility] INTERVERTEB FAMILY RAL DISC CHIROPRACTI DEGEN LUMBOSACRAL REGION M532X7 SPINAL 02-03-2016 [facility] INSTABILITI FAMILY ES CHIROPRACTI LUMBOSACRAL REGION M5432 SCIATICA 02-03-2016 [facility] LEFT SIDE FAMILY CHIROPRACTI M9903 SEGMENTAL & 02-03-2016 [facility] 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 M9904 SEGMENTAL & 02-03-2016 [facility] SOMATIC 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 SACRAL REGION E21565 PAIN IN 01-30-2016 [facility] UNSPECIFIED [place] [facility] L732 HIDRADENITI 12-14-2015 [facility] S SUPPURATIVA H18811 PAIN IN 12-01-2015 [facility] [place] LEFT HIP RADIOLOGY M5186 OTHER 12-01-2015 [facility] DISORDER LUMBAR REGION D225 MELANOCYTIC 11-13-2015 [facility] NEVI OF TRUNK L578 OTH SKN 11-13-2015 [facility] CHANGES D/T CHRN EXPS TO NONIONIZING RAD L814 OTHER 11-13-2015 [facility] MELANIN HYPERPIGMEN TATION L821 OTHER 11-13-2015 [facility] SEBORRHEIC KERATOSIS L906 STRIAE 11-13-2015 [facility] ATROPHICAE O10737Z UNSPECIFIED 10-19-2015 [facility] LEFT ANKLE INITIAL ENCOUNTER J069 ACUTE UPPER 09-05-2015 [facility] RES[facility] INFECTION UNSPECIFIED L66456 CHRONIC 07-19-2015 [facility] TENSION-TYP CLINIC E HEADACHE [...] [facility] UNSPECIFIED [facility] ANGINA INC [place] 31511 CHEST PAIN 11-11-2014 [place] [facility]PEC[facility] 15499 HYPERTENSIV 11-07-2014 [facility] E HEART [facility] DISEASE INC UNSPEC W/HEART FAIL 20568 CORONARY 11-07-2014 [facility] ATHEROSCLER MEM [facility] OSIS [place] INC CORONARY ARTERY 4168 OTHER 11-07-2014 [facility] CHRONIC [facility] PULMONARY INC HEART DISEASES 4280 CONGESTIVE 11-07-2014 [facility] HEART [facility] FAILURE INC UNSPECIFIED 4281 LEFT HEART 11-07-2014 [facility] FAILURE [facility] INC 09303 SHORTNESS 11-07-2014 [facility] OF BREATH [facility] INC 28700 OTHER CHEST 11-07-2014 [facility] PAIN [facility] INC 2189 LEIOMYOMA 09-02-2014 [facility] UNSPECIFIED 25033 MORBID 09-02-2014 [facility] OBESITY [facility] 5680 PERITONEAL 09-02-2014 [facility] ADHESIONS [facility] 6146 PELVIC 09-02-2014 [facility] PERITONEAL PHYSICIANS ADHESIONS, GROUP FEMALE 6212 HYPERTROPHY 09-02-2014 [facility] 6243 HYPERTROPHY 09-02-2014 [facility]IA [facility] 6250 DYSPAREUNIA 09-02-2014 [facility] 6262 EXCESSIVE 09-02-2014 [facility] OR FREQUENT PHYSICIANS GROUP MENSTRUATIO N 6268 OTH D/O 09-02-2014 [facility] MENSTRUATIO ANESTH OF N&OTH ABN THE BLUE BLEED FE GNT TRACT V7283 OTHER 09-01-2014 [facility] SPECIFIED [facility] P VE EXAMINATION 26686 OBESITY, 08-09-2014 [facility] UNSPECIFIED [facility]INIC 6235 LEUKORRHEA [...] SCREENING 05-19-2014 [facility] FOR [facility]INIC UNSPECIFIED CONDITION 42440 OTHER 05-18-2014 [facility] MALAISE AND [place] FATIGUE [facility]INGS 74561 OTHER 05-17-2014 [facility] [place] NONSPECIFIC RADI[facility] ABNORMAL FINDING OF LUNG FIELD 7867 ABNORMAL 05-10-2014 [facility] HEIDY CHEST SOUNDS CONSULTING SERV 7862 COUGH 04-27-2014 [facility] [place] [facility] 7906 OTHER 04-27-2014 [facility] ABNORMAL [place] BLOOD [facility]INGS CHEMISTRY 7962 ELEVATED BP 04-27-2014 [facility] READING [place] WITHOUT DX HOLDINGS HYPERTENSIO N 486 PNEUMONIA, 02-21-2014 CLARKE Kemp ORGANISM JHONNY PHILLIPS UNSPECIFIED PSC 57878 ESOPHAGEAL 02-21-2014 CLARKE Kemp REFLUX JHONNY PHILLIPS PSC 7804 DIZZINESS 02-21-2014 CLARKE HERNANDEZ MD GIDDINESS PSC 42476 HYPOXEMIA 02-21-2014 CLARKE BARRY MD PSC 6253 DYSMENORRHE 04-30-2013 [facility] V2540 UNSPECIFIED 04-30-2013 [facility] VE SURVEILLANC E 5959 UNSPECIFIED 03-15-2013 CLARKE Kemp CYSTITIS JHONNY PHILLIPS PSC 99473 DIARRHEA 03-15-2013 CL[place]KE BARRY [place] PSC 42227 OTHER 02-23-2013 [facility] DISEASES OF RADIOLOGY LUNG NOT ASSOCIAT ELSEWHERE CLASSIFIED 65978 ABDOMINAL 02-23-2013 [facility] UNSPECIFIED SITE 2449 UNSPECIFIED 02-18-2013 [facility] HYPOTHYROID ISM V700 ROUTINE 02-18-2013 [facility] MEDICAL EXAM@HEALTH CARE FACL 73726 OVERWEIGHT 02-17-2013 CLARKE BARRY MD PSC V7231 ROUTINE 02-03-2013 [facility] EXAMINATION V7381 SPECIAL 02-03-2013 [facility] EXAMINATION HUMAN PAPILVIRUS 3671 MYOPIA 01-20-2013 [facility] DIXIE 22679 UNSPECIFIED 01-20-2013 [facility] DIXIE ASTIGMATISM 7245 UNSPECIFIED 11-11-2007 [facility] 96189 SPASM OF 10-23-2007 [facility] MUS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 SPINE PSC 75038 HYPERVENTIL 07-28-2007 [facility] ATION [facility]OSP 12392 OTHER 07-28-2007 [facility] DYSPNEA AND HOSP RESPIRATORY ABNORMALITI ES Medications [...] 91 17 17 32 FA 4 42 [place] [address] WADE TA BL ET AM 66 09 10 20 10 00 SO Ac OX 68 -0 -0 .0 00 PE ti -C 51 8- 6- 00 00 RS ve LA 00 20 20 57 V 10 17 17 21 FA 87 0 46 WV 5- LY [address] MG UG TA BL ET AT 00 09 10 30 30 00 SO Ac OR 37 -1 -0 .0 00 PE ti VA 83 1- 6- [address] 95 20 20 57 AT 20 17 17 22 FA IN [address] MG UG TA BL ET SY 00 09 10 10 30 00 SO Ac MB 18 -1 -0 .1 00 PE ti IC 60 1- 6- 99 00 RS ve OR 37 20 20 57 T 02 17 17 23 FA 16 0 00 [place] 0- LY 4. 5 DR SMITH G IN LÓPEZ LE R CA 68 09 09 60 30 00 SO Ac RV 38 -0 -2 .0 00 PE ti ED 20 1- 9- 00 00 RS ve IL 09 20 20 56 OL 30 17 17 96 FA 5 27 [place] 6. LY 25 DR MG UG TA BL ET HY 16 09 09 [address] 72 -0 -2 .0 00 PE ti OC 90 1- 9- 00 00 RS ve HL 18 20 20 56 OR 31 17 17 96 FA OT 7 26 [place] HI LY AZ ID DR Chetan OLVERA 25 MG TA B VE 00 09 09 18 20 00 SO Ac NT 17 -0 -2 .0 00 PE ti OL 30 1- 9- 00 00 RS ve IN 68 20 20 56 22 17 17 96 FA HF 0 25 [place] A LY 90 DR WHITFIELD IN LÓPEZ LE R DI 61 09 09 60 30 00 SO Ac CL 44 -0 -2 .0 00 PE ti OF 20 1- 9- 00 00 RS ve EN 10 20 20 56 AC 31 17 17 96 FA 0 24 [place] SO LY D DR DR OLVERA 75 MG TA B LO 65 09 09 30 30 00 SO Ac SA 86 -0 -2 .0 00 PE ti RT 20 1- 9- 00 00 RS ve AN 20 20 20 56 29 17 17 96 FA PO 9 23 W[place] TA LY SS IU DR Carey OLVERA [...] 17 17 20 FA 16 0 71 W[place] 0- LY 4. 5 DR WHITFIELD IN LÓPEZ LE R LO 65 08 09 30 30 00 SO Ac SA 86 -0 -0 .0 00 PE ti RT 20 4- 1- 00 00 RS ve AN 20 20 20 56 29 17 17 96 FA PO 9 23 [place] TA LY SS IU DR Carey OLVERA 50 MG TA B DI 61 08 09 60 30 00 SO Ac CL 44 -0 -0 .0 00 PE ti OF 20 4- 1- 00 00 RS ve EN 10 20 20 56 AC 31 17 17 96 FA 0 24 [place] D [address] DR OLVERA 75 MG TA B VE 00 08 09 18 20 00 SO Ac NT 17 -0 -0 .0 00 PE ti OL 30 4- 1- 00 00 RS ve IN 68 20 20 56 22 17 17 96 FA HF 0 25 [place] A LY 90 DR [place] IN LÓPEZ LE R HY 16 08 09 [address] 72 -0 -0 .0 00 PE ti OC 90 4- 1- 00 00 RS ve HL 18 20 20 56 OR 31 17 17 96 FA OT 7 26 [place] HI LY AZ ID DR Chetan OLVERA 25 MG TA B CA 68 08 09 60 30 00 SO Ac RV 38 -0 -0 .0 00 PE ti ED 20 4- 1- 00 00 RS ve IL 09 20 20 56 OL 30 17 17 96 FA 5 27 [place] 6. LY 25 DR MG UG TA [...] 17 17 21 FA HF 0 19 [place] A LY 90 [place] WH[place] IN LÓPEZ LE R LO 65 06 30 30 00 SO Ac SA 86 -0 -0 .0 00 PE ti RT 20 8- 7- 00 00 RS ve AN 20 20 20 54 19 17 17 23 FA PO 0 27 [place] TA LY SS IU DR Carey OLVERA 25 MG TA B AT 00 06 07 30 30 00 SO Ac OR 37 -0 -0 .0 00 PE ti VA 83 8- 7- [address] 95 20 20 54 AT 20 17 17 23 FA IN 5 [address] [place] [address] MG OLVERA TA BL ET SY 00 06 07 10 30 00 SO Ac MB 18 -0 -0 .1 00 PE ti IC 60 8- 7- 99 00 RS ve OR 37 20 20 56 T 02 17 17 20 FA 16 0 71 W[place] 0- LY 4. 5 DR WHITFIELD IN LÓPEZ LE R HY 16 11 13 [address] 72 -0 -0 .0 00 PE ti OC 90 8- 7- 00 00 RS ve HL 18 20 20 54 OR 31 17 17 23 FA OT 7 21 [place] HI LY AZ ID DR Chetan OLVERA [...] 89 17 17 21 FA 0 76 [place] HC LY L DR DR OLVERA 30 MG CA P SY 00 04 05 10 30 00 SO Ac MB 18 -2 -1 .1 00 PE ti IC 60 1- 9- 99 00 RS ve OR 37 20 20 56 T 02 17 17 20 FA 16 0 71 W[place] 0- LY 4. 5 DR SMITH G IN LÓPEZ LE R CH 00 04 05 60 30 00 SO Ac AN 06 -2 -1 .0 00 PE ti TI 90 0- 9- 00 00 RS ve X 46 20 20 56 1 95 17 17 19 FA MG 6 92 [place] LY TA BL DR ET UG VE 00 04 05 18 20 00 SO Ac NT 17 -2 -1 .0 00 PE ti OL 30 4- 9- 00 00 RS ve IN 68 20 20 56 22 17 17 21 FA HF 0 19 [place] A LY 90 DR SMITH G IN LE R CH 00 03 04 53 28 00 SO Ac AN 06 -2 -2 .0 00 PE ti TI 90 3- 1- 00 00 RS ve X [address] 10 17 17 96 FA AR 3 08 [place] TI LY NG DR MUNA OLVERA NT H [place] X SY 00 03 03 10 30 00 SO Ac MB 18 -0 -3 .1 00 PE ti IC 60 3- 1- 99 00 RS ve OR 37 20 20 54 T 02 17 17 23 FA 16 0 28 W[place] 0- LY 4. 5 DR WHITFIELD IN LE R LO 65 02 03 30 30 00 SO Ac SA 86 -2 -2 .0 00 PE ti RT 20 4- 4- 00 00 RS ve AN 20 20 20 54 19 17 17 23 FA PO 0 27 W[place] TA LY SS IU DR Patino UG 25 MG TA B CA 68 02 03 60 30 00 SO Ac RV 38 -2 -2 .0 00 PE ti ED 20 4- 4- 00 00 RS ve IL 09 20 20 54 OL 30 17 17 23 FA 5 23 [place] 6[address] LY [address] DR MG UG TA BL ET HY 16 02 03 [address] 72 -2 -2 .0 00 PE ti OC 90 4- 4- 00 00 RS ve HL 18 20 20 54 OR 31 17 17 23 FA OT 7 21 [place] HI LY AZ ID DR Chetan OLVERA 25 MG TA B AT 00 02 03 30 30 00 SO Ac OR 37 -2 -2 .0 00 PE ti VA 83 4- 4- [address] 95 20 20 54 AT 20 17 17 23 FA IN [address] MG UG TA BL ET DI 61 02 03 60 30 00 SO Ac CL 44 -2 -2 .0 00 PE ti OF 20 4- 4- 00 00 RS ve EN 10 20 20 54 AC 31 17 17 23 FA 0 26 [place] LY D DR DR UG 75 MG TA B VE 00 02 03 18 20 00 SO Ac NT 17 -2 -2 .0 00 PE ti OL 30 4- 4- 00 00 RS ve IN 68 20 20 54 22 17 17 23 FA HF 0 19 [place] A LY 90 DR MC UG G IN LÓPEZ LE R TN 00 01 02 10 5 00 SO Ac ED 05 -2 -1 .0 00 PE ti NI 40 0- 7- 00 00 RS ve SO 01 20 20 55 NE 82 17 17 41 FA 9 15 [place] [address] UG TA BL ET LE 55 01 02 7. 7 00 SO Ac VO 11 -2 -1 00 00 PE ti FL 10 0- 7- 0 00 RS ve OX 28 20 20 55 AC 13 17 17 41 FA IN 0 16 [place] LY [address] MG UG TA BL ET IP 69 01 02 36 30 00 SO Ac RA 09 -2 -1 0. 00 PE ti T- 70 0- 7- 00 00 RS ve AL 17 20 20 0 55 BU 36 17 17 41 FA T 4 17 W[place] 0. LY 5- 3( DR 2. UG 5) MG /3 ML LE 55 01 01 7. 7 00 SO Ac VO 11 -0 -2 00 00 PE ti FL 10 4- 7- 0 00 RS ve OX 28 20 20 55 AC 13 17 17 27 FA IN 0 06 [place] LY [address] MG UG TA BL ET FL 57 01 01 2. 3 00 SO Ac UC 23 -0 -2 00 00 PE ti ON 70 4- 7- 0 00 RS ve AZ 00 20 20 55 OL 51 17 17 27 FA E 1 11 WV [address] UG TA BL ET BIRCH 00 12 01 48 12 00 SO Ac DO 90 -2 -2 .0 00 PE ti GE 45 8- 0- [address] 05 20 20 55 32 16 17 22 FA 30 [address] TA UG BL ET BE 67 12 01 30 10 00 SO Ac NZ 87 -2 -2 .0 00 PE ti ON 70 8- 0- 00 00 RS ve AT 10 20 20 55 AT 60 16 17 22 FA E 5 10 [place] [address] UG CA PS UL E AZ 00 12 01 6. 5 00 SO Ac IT 78 -2 -2 00 00 PE ti HR 11 8- 0- 0 00 RS ve OM 49 20 20 55 YC 66 16 17 22 FA IN 8 09 [place] LY [address] MG UG TA [...] ai ZA 71 08 08 AR la TN 0 MA bl IN CY e E [...] IN OP HE N 5- 32 5 TN 68 04 [address] [...] 1- 0- 00 A 57 Av ve TN 52 20 20 PH 7 ai AM [...] Date Code Location Performer Type Date [facility] - 7 7 [facility] [place] [id number] [facility] 6 [facility] - 6 6 [facility] 6 6 [facility] - 6 6 [facility] - 6 6 [facility] - 6 6 [facility] - 6 6 [facility] 6 6 [facility] 6 6 [facility] - 6 6 [facility] - 5 5 [facility] - 5 5 [facility] - 5 5 [facility] - 5 5 [facility] - 5 5 [facility] - 5 5 [facility] - 4 4 [facility] - 4 4 [facility] - 3 3 [facility] - 8 8 [facility] MARTINEZ - 8 8 [facility]
--- OUTSIDE RECORDS SUMMARY | 2017-04-14 13:29 | External Medical Summary Rpt | CCD ---
Demographics Preferred Language Luxembourgish Marital Status Unknown Mosque Affiliation Unknown Race Unknown Ethnic Group Unknown Author Author , ALYX LYNN Address Unknown Phone Immunization No patient found.
--- OUTSIDE RECORDS SUMMARY | 2017-04-14 13:29 | External Medical Summary Rpt | CCD ---
Demographics Preferred Language Yakut Marital Status Unknown Jew Affiliation Unknown Race Unknown Ethnic Group Unknown Author Author , ALYX LYNN Address Unknown Phone Immunization No patient found.
--- OUTSIDE RECORDS SUMMARY | 2017-04-14 13:30 | External Medical Summary Rpt ---
Author Author LEAH Guillen, [employer] Organization [employer] Address Unknown Phone Unavailable Results LSWO Observa Value Referen Units Interpr Notes Date tion ce etation Range TEXT \\.br\\Pa No No No No Sep 9 DIAGNOS tient : informa informa informa informa 2016 IS tion in tion in tion in tion in 5:06 PM [place], source source source source LINDA data data data data 7 Visit Type : REG CLI\\.br \\ : [id number] Rm/Bed :\\.br\\A ge/Sex : 40/F\\.b r\\\\.br\\ Orderin g Physici an : Sirisha Cameron PA-C Tech : López Grullon\\. br\\Acce ssion # : [id number] Time In : 1601\\.b r\\Categ ory: MAGNETI C RESONAN CE IMAGING Time Out :\\.br\\_ \\.br\\\\. br\\Date : 6\\.br\\\\ .br\\\\.b r\\EXAMI NATION: \\.br\\ELLEN MBAR SPINE W/O CONTRAS T MRI\\.br \\\\.br\\I NDICATI ON:\\.br \\Lumbar back pain with radicul opathy affecti ng left lower extremi ty\\.br\\ \\.br\\AD DITIONA L HISTORY :\\.br\\L BP GOING INTO LT HIP\\.br \\\\.br\\T ECHNIQU E:\\.br\\ Unenhan magdaleno MRI of the lumbar spine was perform ed at 1.5 [facility] without contras t adminis tration .\\.br\\\\ .br\\COM PARISON :\\.br\\N one.\\.b r\\\\.br\\ FINDING S:\\.br\\ There is normal alignme nt of the vertebr al bodies. The vertebr al body heights are preserv ed.\\.br \\There is disc desicca tion at the L4-5 level. Signal intensi ty within the marrow is within normal\\ .br\\wright its without patholo gic marrow replace ment. The conus termina dixon at the level of L1 with normal\\ .br\\sig nal intensi ty within the substan ce of the cord. The paraspi nal soft tissues appear within\\ .br\\nor mal limits. \\.br\\\\. br\\L1-2 : There is no neurofo raminal or central canal stenosi s. There is no herniat ed disc.\\. br\\L2-3 : Mild diffuse disc bulge is demonst rated. There is no neurofo raminal or central canal\\. br\\sten osis. There is no herniat ed disc.\\. br\\L3-4 : There is no neurofo raminal or central canal stenosi s. There is no herniat ed disc.\\. br\\L4-5 : There is a promine nt left central / subarti cular disc protrus ion measuri ng 17 mm in\\.br\\ transve rse dimensi ons and extendi ng 10 mm beyond the posteri or margin of the vertebr al body. This\\.b r\\cause s central canal stenosi s, left foramin al stenosi s as well as contact ing the descend ing nerve\\. br\\root s on the left.\\. br\\L5-S 1: Central disc protrus ion with annular tear is demonst rated. This causes central canal\\. br\\sten osis. Margina l spurrin g causes right greater than left foramin al stenosi s.\\.br\\ \\.br\\IM PRESSIO N:\\.br\\ 1. Large left central /subart icular disc protrus ion at L4-5 causing central canal and left\\.b r\\bharat inal stenosi s with details above.\\ .br\\2. Central disc protrus ion with annular tear L5-S1.\\ .br\\3. Margina l spurrin g causing bilater al foramin al stenosi s at L5-S1.\\ .br\\\\.b r\\\\.br\\ \\.br\\ Bacteria identified in Blood by Culture Observa Value Referen Units Interpr Notes Date tion ce etation Range _CULTURE BLOOD_ STATUS PRELIMI No No No No Jun 02 NARY informa informa informa informa 2015 tion in tion in tion in tion in 2:22 PM source source source source data data data data RESULT NO No No No No Jun 02 GROWTH informa informa informa informa 2015 AT 1 tion in tion in tion in tion in 2:22 PM DAY source source source source data data data data RESULTE LMM No No No Jun 02 D BY informa informa informa 2015 tion in tion in tion in 2:22 PM source source source data data data STATUS FINAL No No No No Jun 02 informa informa informa informa 2015 tion in tion in tion in tion in 2:22 PM source source source source data data data data RESULT NO No No No No Jun 02 GROWTH informa informa informa informa 2015 5 DAYS tion in tion in tion in tion in 2:22 PM source source source source data data data data RESULTE MDA No No No No Jun 02 D BY informa informa informa informa 2015 tion in tion in tion in tion in 2:22 PM source source source source data data data data SEND Y No No No No Jun 02 PHARM/I informa informa informa informa 2015 C tion in tion in tion in tion in 2:22 PM source source source source data data data data SEND TO Y No No No Jun 02 ER informa informa informa 5.1423. 2015 tion in tion in tion in MDA.COM 2:22 PM source source source PLETE data data data Bacteria identified in Blood by Culture Observa Value Referen Units Interpr Notes Date tion ce etation Range _CULTURE BLOOD_ STATUS PRELIMI No No No No Jun 02 NARY informa informa informa informa 2014 tion in tion in tion in tion in 2:23 PM source source source source data data data data RESULT NO No No No No Jun 02 GROWTH informa informa informa informa 2015 AT 1 tion in tion in tion in tion in 2:23 PM DAY source source source source data data data data RESULTE LMM No No No Jun 02 D BY informa informa informa 2015 tion in tion in tion in 2:23 PM source source source data data data STATUS FINAL No No No No Jun 02 informa informa informa informa 2015 tion in tion in tion in tion in 2:23 PM source source source source data data data data RESULT NO No No No No Jun 02 GROWTH informa informa informa informa 2015 5 DAYS tion in tion in tion in tion in 2:23 PM source source source source data data data data RESULTE MDA No No No No Jun 02 D BY informa informa informa informa 2015 tion in tion in tion in tion in 2:23 PM source source source source data data data data SEND Y No No No No Jun 02 PHARM/I informa informa informa informa 2015 C tion in tion in tion in tion in 2:23 PM source source source source data data data data SEND TO Y No No No 06/02/Jun 02 ER informa informa informa 5.1423. 2015 tion in tion in tion in [email or web address].COM 2:23 PM source source source PLETE data data data Comprehensive metabolic 1998 panel in Serum or Plasma Observa Value Referen Units Interpr Notes Date tion ce etation Range Sodium 136 136 - mmol/L No No May 28 [Moles/ 145 informa informa 2015 volume] tion in tion in 1:22 PM in source source Serum data data or Plasma Potassi 3.9 3.5 - mmol/L No No May 28 um 5.1 informa informa 2014 [Moles/ tion in tion in 1:22 PM volume] source source in data data Serum or Plasma Chlorid 98 98 - mmol/L No No May 28 e 107 informa informa 2014 [Moles/ tion in tion in 1:22 PM volume] source source in data data Serum or Plasma Carbon 29 21 - 32 mmol/L No No May 28 dioxide informa informa 2014 , total tion in tion in 1:22 PM source source [Moles/ data data volume] in Blood Anion 13 5 - 15 mmol/L No No May 28 gap in informa informa 2014 Serum tion in tion in 1:22 PM or source source Plasma data data Glucose 111 70 - mg/dl No No May 28 120 informa informa 2014 [Mass/v tion in tion in 1:22 PM olume] source source in data data Serum or Plasma Urea 7 7 - 18 mg/dl No No May 28 nitroge informa informa 2015 n tion in tion in 1:22 PM [Mass/v source source olume] data data in Serum or Plasma Creatin 0.8 0.6 - mg/dl No No May 28 ine 1.3 informa informa 2014 [Mass/v tion in tion in 1:22 PM olume] source source in data data Serum or Plasma AGE 40 No yrs No No May 28 informa informa informa 2015 tion in tion in tion in 1:22 PM source source source data data data GFR >60 No ml/min No No May 28 informa informa informa 2015 tion in tion in tion in 1:22 PM source source source data data data Urea 9 6 - 25 ratio No No May 28 nitroge informa informa 2015 n/Creat tion in tion in 1:22 PM inine source source [Mass data data ratio] in Serum or Plasma Osmolal 271 272 - No Low No May 28 ity of 295 informa informa 2014 Unspeci tion in tion in 1:22 PM fied source source specime data data n Calcium 9.1 8.5 - mg/dl No No May 28 10.1 informa informa 2014 [Mass/v tion in tion in 1:22 PM olume] source source in data data Serum or Plasma Bilirub 0.4 0.2 - mg/dl No No May 28 in.tota 1.0 informa informa 2014 l tion in tion in 1:22 PM [Mass/v source source olume] data data in Serum or Plasma Asparta 16 15 - 37 IU/L No No May 28 te informa informa 2015 aminotr tion in tion in 1:22 PM ansfera source source se data data [Enzyma tic activit y/volum e] in Serum or Plasma Alanine 32 12 - 78 IU/L No No May 28 informa informa 2014 aminotr tion in tion in 1:22 PM ansfera source source se data data [Enzyma tic activit y/volum e] in Serum or Plasma Alkalin 63 46 - IU/L No No May 28 e 116 informa informa 2014 phospha tion in tion in 1:22 PM tase source source [Enzyma data data tic activit y/volum e] in Serum or Plasma Protein 8.1 6.4 - g/dl No No May 28 8.2 informa informa 2014 [Mass/v tion in tion in 1:22 PM olume] source source in data data Serum or Plasma Albumin 3.6 3.4 - g/dl No No May 28 5.0 informa informa 2014 [Mass/v tion in tion in 1:22 PM olume] source source in data data Serum or Plasma Albumin 4.5 1.3 - g/dl High No May 28 /Globul 3.5 informa 2015 in tion in 1:22 PM [Mass source ratio] data in Serum or Plasma Albumin 0.8 1.0 - ratio Low /BLDo/G May 28 /Globul 3.9 LOMERUL 2015 in AR 1:22 PM [Mass FILTRAT ratio] ION in RATE Serum INTERPR or ETATION Plasma /BLDx/N ormal Range: >60 mL/min/ 1.73 sq metersI f patient is [place] n, multipl y GFR by 1.120.* GFR only applies to adults over the age 18. Natriutietic peptide B [Mass/volume] in Serum or Plasma Observa Value Referen Units Interpr Notes Date tion ce etation Range Natriut 82 0 - 131 pg/ml No No May 28 ietic informa informa 2014 peptide tion in tion in 1:22 PM B source source [Mass/v data data olume] in Serum or Plasma Additio NO No No No This May 28 nal informa informa informa 2014 comment tion in tion in tion in analyte 1:22 PM s RFC source source source has data data data conside rable variabi lity in patient s without knownhe art disease and for this reason it is difficu lt to assign strictr eferenc e ranges that would account for all circums tances. NT-proB MANAGER CLINICAL RESEARCH can show substan tial increas es in patient s without heartfa ilure with increas ing age and advanci ng renal insuffi ciency; malesin general have somewha t higher values than females . There are otherca uses of increas ed NT-proB MANAGER CLINICAL RESEARCH not related to congest dennis heartfa ilure also. For use as a screeni ng test, values less than 131pg/m lare recomme nded below the age of 75. For patient s 75 years andolde r, a cutoff of 450pg/n l is recomme nded. * CBC W DIFF AUTOMATED Observa Value Referen Units Interpr Notes Date tion ce etation Range Leukocy 13.8 4.5 - K/uL High No May 28 dixon 11.5 informa 2014 [#/volu tion in 1:15 PM me] in source Blood data by Automat ed count Erythro 5.35 4.00 - M/uL No No May 28 cytes 5.40 informa informa 2014 [#/volu tion in tion in 1:15 PM me] in source source Blood data data by Automat ed count Hemoglo 15.7 12.0 - g/dL High No May 28 bin 15.0 informa 2014 [Mass/v tion in 1:15 PM olume] source in data Blood Hematoc 46 35 - 49 % No No May 28 rit informa informa 2014 [Volume tion in tion in 1:15 PM source source Fractio data data n] of Blood by Automat ed count Erythro 86.5 80.0 - fL No No May 28 cyte 100 informa informa 2014 mean tion in tion in 1:15 PM corpusc source source ular data data volume [Entiti c volume] by Automat ed count Erythro 29.3 26.0 - pg No No May 28 cyte 32.0 informa informa 2014 mean tion in tion in 1:15 PM corpusc source source ular data data hemoglo bin [Entiti c mass] by Automat ed count Erythro 33.9 32.0 - g/dL No No May 28 cyte 36.0 informa informa 2014 mean tion in tion in 1:15 PM corpusc source source ular data data hemoglo bin concent ration [Mass/v olume] in Blood from Fetus by Automat ed count Erythro 14.7 11.5 - % High No May 28 cyte 14.5 informa 2015 distrib tion in 1:15 PM ution source width data [Ratio] by Automat ed count Platele 373 150 - K/uL No No May 20 ts 450 informa informa 2015 [#/volu tion in tion in 1:15 PM me] in source source Blood data data by Automat ed count Lymphoc 20.7 18.0 - % No No May 20 ytes/10 42.0 informa informa 2015 0 tion in tion in 1:15 PM leukocy source source dixon in data data Blood by Automat ed count Monocyt 4.9 2.0 - % No No May 28 es/100 11.0 informa informa 2015 leukocy tion in tion in 1:15 PM dixon in source source Blood data data by Automat ed count Neutrop 72.8 50.0 - % High No May 28 hils.ba 70.0 informa 2015 nd tion in 1:15 PM form/10 source 0 data leukocy dixon in Blood by Manual count Eosinop 1.10 1.00 - % No No May 20 hils/10 3.00 informa informa 2015 0 tion in tion in 1:15 PM leukocy source source dixon in data data Blood by Automat ed count Basophi 0.50 0.00 - % No No May 20 ls/100 2.00 informa informa 2015 leukocy tion in tion in 1:15 PM dixon in source source Blood data data by Automat ed count Lymphoc 2.84 0.60 - K/uL No No May 20 ytes/10 3.40 informa informa 2015 0 tion in tion in 1:15 PM leukocy source source dixon in data data Blood by Automat ed count Monocyt 0.67 0.00 - K/uL No No May 20 es/100 0.90 informa informa 2015 leukocy tion in tion in 1:15 PM dixon in source source Blood data data by Automat ed count Neutrop 10.02 2.00 - K/uL High No May 20 hils.ba 6.90 informa 2015 nd tion in 1:15 PM form/10 source 0 data leukocy dixon in Blood by Manual count Eosinop 0.15 0.00 - K/uL No No May 28 hils/10 0.70 informa informa 2014 0 tion in tion in 1:15 PM leukocy source source dixon in data data Blood by Automat ed count Basophi 0.07 0.00 - K/uL No No May 28 ls/100 0.20 informa informa 2014 leukocy tion in tion in 1:15 PM dixon in source source Blood data data by Automat ed count Manual NOT No No No No May 28 differe INDICAT informa informa informa informa 2014 ntial ED tion in tion in tion in tion in 1:15 PM perform source source source source ed data data data data [Presen ce] in Blood XR CHEST AP LA Observa Value Referen Units Interpr Notes Date tion ce etation Range XR No No No No May 28 CHEST informa informa informa informa 2014 AP LA tion in tion in tion in tion in 12:05 source source source source PM data data data data [facility] L\\.br\\ [address]\\.br \\ [place] [address]\\. br\\\\.br \\ RADIOLO GY REPORT\\ .br\\ Name: HAVEN MCKEON \\.br\\ Patient #: [id number] Stay Type: E/R\\.br \\ Age: 40 Room: [facility]\\. br\\ : 973 Sex: F\\.br\\ Orderin g Phys: JEREMIAH HARPER MR#: [id number]\\. br\\ Family Phys: CRISTHIAN GUERRERO Pt Phone: [phone] /[phone]\\. br\\ Admitti ng Phys: JEREMIAH HARPER\\.b r\\ Unsig rachell Transcr iptions represe nt a prelimi nary report and do\\.br\\ not reflect a medical or legal documen t.\\.b r\\\\.br\\ \\.br\\ [place] [address] COMPLET E:05/28 12:53 CGS [id number]\\. br\\ (REASON FOR CHEST: COUGH\\. br\\\\.br \\\\.br\\\\ .br\\ CLINICA L HISTORY : Cough and shortne ss of breath. \\.br\\\\. br\\ COMPARI SON: PA and lateral chest dated 02/09/14 .\\.br\\\\ .br\\ FINDING S: PA and lateral views obtaine d. The cardiom ediasti nal silhoue tte is within normal\\ .br\\ limits. There is a stable calcifi ed left infrahi lar lymph node. The lungs are clear bilater ally without \\.br\\ pleural fluid or focal pneumon ia. There are mild end plate osteoph ytes of the mid to lower thoraci c\\.br\\ spine.\\ .br\\\\.b r\\ IMPRESS ION:\\.b r\\ Stable chest without evidenc e of acute cardiop ulmonar y disease .\\.br\\\\ .br\\\\.b r\\\\.br\\ Electro nically reviewe d and signed by:\\.br \\ Nicol MISHRA MD\\.br\\ RADIOLO GIST/ 09:21\\. br\\\\.br \\ Dictati on Date/Ti me: 5 13:09 Dictate d By: DUARTE LIEBERMAN MD RADIOLO GIST\\.b r\\ Transcr . Date/Ti me: 5/ 05:45 Transcr . Init.: amh\\.br \\\\.br\\ Copy for: JEREMIAH MEDINA\\. br\\ Copy for: [facility]MA TION MANAGEM ENT\\.br \\ DISCHAR GED\\.br \\\\.br\\ CT CHEST W Observa Value Referen Units Interpr Notes Date tion ce etation Range CT No No No No Sep 3 CHEST W informa informa informa informa 2013 tion in tion in tion in tion in 4:14 PM source source source source data data data data [facility] L\\.br\\ [address]\\.br \\ [place] [address]\\. br\\\\.br \\ RADIOLO GY REPORT\\ .br\\ Name: HAVEN MCKEON \\.br\\ Patient #: [id number] Stay Type: E/R\\.br \\ Age: 38 Room: [facility]\\. br\\ : 973 Sex: F\\.br\\ Orderin g Phys: BETHEL SUAREZ MR#: [id number]\\. br\\ Family Phys: JHONNY SINGH Pt Phone: [phone] /[phone]\\. br\\ Admitti ng Phys: BETHEL SUAREZ\\.b r\\ Unsig rachell Transcr iptions represe nt a prelimi nary report and do\\.br\\ not reflect a medical or legal documen t.\\.b r\\\\.br\\ \\.br\\ $$ #" ! !\\.br\\ " 1&10)(' &%\\.br\\ \\.br\\\\. br\\ CLINICA L HISTORY : Chest pain and shortne ss of breath with cough and chest congest ion.\\.b r\\ History of tobacco use.\\.b r\\\\.br\\ COMPARI SON: PA and lateral chest the same day and CTA chest dated 11/07/08 .\\.br\\\\ .br\\ FINDING S: Multipl e axial images through the chest were obtaine d followi ng adminis tration of\\.br\\ intrave nous contras t. This data was used to perform coronal reconst ruction s. The heart is normal\\ .br\\ in size. There is a 1.1 x 1.6 cm right hilar lymph node, not signifi cantly changed from 2008. There\\. br\\ are granulo matous calcifi cations within the mediast inum without patholo gic intrath oracic\\ .br\\ lymphad enopath y. The thyroid gland is unremar kable. There is a cluster of nodules within the left\\.b r\\ lower lobe. The largest nodule measure s 1.1 x 2.3 cm and is predomi nantly calcifi ed. The\\.br \\ calcifi cation has progres sed from 2008. There are patchy ground glass opaciti es within the central \\.br\\ aspect of the basal segment s of the left lower lobe, within the central lingula , and scatter ed within\\ .br\\ the anterio r segment of the left upper lobe. There are also patchy ground glass opaciti es within the\\.br \\ central right upper lobe and right middle lobe and the anterio r basal segment of the right lower\\. br\\ lobe. There is no pleural fluid and the visuali zed airways are patent. Intraab dominal ly,\\.br \\ granulo matous calcifi cations involve the spleen. The visuali zed upper abdomin al structu res are\\.br \\ otherwi se unremar kable. There are mild degener ative changes of the lower thoraci c spine. No\\.br\\ suspici ous osseous lesions are identif ied.\\.b r\\\\.br\\ IMPRESS ION:\\.b r\\ Patchy ground glass opaciti es scatter ed through out both lungs, more promine nt central ly.\\.br \\ Differe ntial diagnos is include s atelect asis, atypica l pneumon ia, and inflamm atory\\. br\\ etiolog ies.\\.b r\\ Old granulo matous disease .\\.br\\\\ .br\\ Electro nically reviewe d and signed by:\\.br \\ DUARTE LIEBERMAN MD\\.br\\ RADIOLO GIST/ 13:26\\. br\\ Dictati on Date/Ti me: 02/09/14 17:32 Dictate d By: DUARTE LIEBERMAN MD RADIOLO GIST\\.b r\\ Transcr . Date/Ti me: 02/10/14 / 08:42 Transcr . Init.: amh\\.br \\ [facility]\\.br\\ [address]\\.br \\ [place] [address]\\. br\\\\.br \\ RADIOLO GY REPORT\\ .br\\ Name: HAVEN MCKEON \\.br\\ Patient #: [id number] Stay Type: E/R\\.br \\ Age: 38 Room: [facility]\\. br\\ : 973 Sex: F\\.br\\ Orderin g Phys: BETHEL SUAREZ MR#: [id number]\\. br\\ Family Phys: JHONNY SA Pt Phone: [phone] /[phone]\\. br\\ Admitti ng Phys: SADEK MOHA\\.b r\\ Unsig rachell Transcr iptions represe nt a prelimi nary report and do\\.br\\ not reflect a medical or legal documen t.\\.b r\\\\.br\\ \\.br\\ $$ #" ! !\\.br\\ " 1&10)(' &%\\.br\\ Copy for: BETHEL Barnes M.D.\\.b r\\ Copy for: JHONNY ZELAYA M.D. via link\\.b r\\ Copy for: 073 [facility]NAG[facility] E[facility]\\.br \\ DISCHAR GED\\.br \\\\.br\\ CHEST AP LA Observa Value Referen Units Interpr Notes Date tion ce etation Range CHEST No No No No Sep 3 AP LA informa informa informa informa 2013 tion in tion in tion in tion in 2:06 PM source source source source data data data data [facility]\\.br\\ [address]\\.br \\ [place] [address]\\. br\\\\.br \\ RADIOLO GY REPORT\\ .br\\ Name: HAVEN MCKEON \\.br\\ Patient #: [id number] Stay Type: E/R\\.br \\ Age: 38 Room: [facility]\\. br\\ : 973 Sex: F\\.br\\ Orderin g Phys: BETHEL SUAREZ MR#: [id number]\\. br\\ Family Phys: JHONNY SINGH Pt Phone: [phone] /[phone]\\. br\\ Admitti ng Phys: BETHEL SUAREZ\\.b r\\ Unsig rachell Transcr iptions represe nt a prelimi nary report and do\\.br\\ not reflect a medical or legal documen t.\\.b r\\\\.br\\ \\.br\\ " %$# "!\\.br\\ 1&10)(' &$\\.br\\ \\.br\\\\. br\\ CLINICA L HISTORY : Chest pain and shortne ss of breath. \\.br\\\\. br\\ COMPARI SON: PA and lateral chest dated 02/24/20 13.\\.br \\\\.br\\ FINDING S: PA and lateral views obtaine d. The cardiom ediasti nal silhoue tte is within normal\\ .br\\ limits. The lungs are mildly hyperin flated without pleural fluid or focal pneumon ia. There is a\\.br\\ stable calcifi ed lymph node in the lower left hilum. There are mild degener ative changes of the\\.br \\ mid to lower thoraci c spine.\\ .br\\\\.b r\\ IMPRESS ION:\\.b r\\ Stable mild hyperin flation without evidenc e of acute cardiop ulmonar y disease .\\.br\\\\ .br\\\\.b r\\\\.br\\ \\.br\\ Electro nically reviewe d and signed by:\\.br \\ DUARTE LIEBERMAN MD\\.br\\ RADIOLO GIST/ 13:21\\. br\\\\.br \\ Dictati on Date/Ti me: 02/09/14 14:33 Dictate d By: DUARTE LIEBERMAN MD RADIOLO GIST\\.b r\\ Transcr . Date/Ti me: 02/09/14 / 16:10 Transcr . Init.: klh\\.br \\\\.br\\ Copy for: BETHEL Barnes M.D.\\.b r\\ Copy for: JHONNY ZELAYA M.D. via link\\.b r\\ Copy for: 073 [facility] E[facility]\\.br \\ DISCHAR GED\\.br \\\\.br\\ D DIMER QT Observa Value Referen Units Interpr Notes Date tion ce etation Range D-DIMER 0.40 0.19 - mg/L No No Sep 3 , QT 0.59 informa informa 2014 tion in tion in 2:34 PM source source data data QUANTIT No No No No Sep 3 ATIVE informa informa informa informa 2014 D-DIMER tion in tion in tion in tion in 2:34 PM source source source source INTERPR data data data data ETATION [CLINIC No No No No Sep 3 AL informa informa informa informa 2014 CUTOFF tion in tion in tion in tion in 2:34 PM = <0.5 source source source source mg/L] data data data data When No No No No Sep 3 combine informa informa informa informa 2014 d with tion in tion in tion in tion in 2:34 PM a low source source source source clinica data data data data l probabi lity (Wells Score). D-dimer results No No No No Sep 3 below informa informa informa informa 2014 the tion in tion in tion in tion in 2:34 PM clinica source source source source l data data data data cutoff (<0.5 mg/L) have excelle nt negativ e predict No No No No Sep 3 dennis informa informa informa informa 2014 value tion in tion in tion in tion in 2:34 PM in source source source source excludi data data data data ng the diagnos is of acute PE or DVT. However , a No No No No Sep 3 thrombo informa informa informa informa 2014 embolic tion in tion in tion in tion in 2:34 PM event source source source source cannot data data data data be exclude d solely on the basis of the D-Dimer No No No No Sep 3 level informa informa informa informa 2014 being tion in tion in tion in tion in 2:34 PM within source source source source referen data data data data ce range. D-Dimer No No No No Sep 3 s may informa informa informa informa 2014 also be tion in tion in ti in ti in 2:34 PM source source source source elevate data data data data d for a variety of disorde rs includi ng: old No No No No Sep 3 age, informa informa informa informa 2014 pregnan tion in tion in tion in ti in 2:34 PM cy, source source source source coronar data data data data y disease , cancer, liver disease , infecti on, inflama No No No No Sep 3 tion, informa informa informa informa 2014 hematom tion in tion in tion in tion in 2:34 PM a, DIC, source source source source data data data data trauma, post-alford rgery, diabete s, thrombo lytic therapy No No No No Sep 3 , informa informa informa informa 2014 stress, tion in tion in tion in tion in 2:34 PM and source source source source hospita data data data data lizatio n. D-Dimer levels may be decreas ed in patient No No No No Sep 3 s on informa informa informa informa 2014 anti-co tion in tion in tion in tion in 2:34 PM agulant source source source source data data data data therapy . Patient No No No No Sep 3 s with informa informa informa informa 2014 a high tion in tion in tion in tion in 2:34 PM clinica source source source source l data data data data probabi lity should not be exclude d without confirm No No No No Sep 3 atory informa informa informa informa 2014 radiolo tion in tion in tion in tion in 2:34 PM gical source source source source or data data data data vascula r procedu res. COMPREHENSIVE METABOLIC PANEL CMP Observa Value Referen Units Interpr Notes Date tion ce etation Range Sodium 138 136 - mmol/L No No Sep 3 [Moles/ 145 informa informa 2014 volume] tion in tion in 2:24 PM in source source Serum data data or Plasma Potassi 3.4 3.5 - mmol/L Low No Sep 3 um 5.1 informa 2013 [Moles/ tion in 2:24 PM volume] source in data Serum or Plasma Chlorid 100 98 - mmol/L No No Sep 3 e 107 informa informa 2013 [Moles/ tion in tion in 2:24 PM volume] source source in data data Serum or Plasma TOTAL 29 21 - 32 mmol/L No No Sep 3 CO2 informa informa 2014 tion in tion in 2:24 PM source source data data ANION 12 5 - 15 mmol/L No No Sep 3 GAP informa informa 2014 tion in tion in 2:24 PM source source data data Glucose 134 70 - mg/dl High No Sep 3 120 informa 2013 [Mass/v tion in 2:24 PM olume] source in data Serum or Plasma Urea 7 7 - 18 mg/dl No No Sep 3 nitroge informa informa 2014 n tion in tion in 2:24 PM [Mass/v source source olume] data data in Serum or Plasma Creatin 0.9 0.6 - mg/dl No No Sep 3 ine 1.3 informa informa 2014 [Mass/v tion in tion in 2:24 PM olume] source source in data data Serum or Plasma AGE 38 No yrs No No Sep 3 informa informa informa 2014 tion in tion in tion in 2:24 PM source source source data data data GFR >60 No ml/min No No Sep 3 informa informa informa 2014 tion in tion in tion in 2:24 PM source source source data data data Calcium 9.4 8.5 - mg/dl No No Sep 3 10.1 informa informa 2013 [Mass/v tion in tion in 2:24 PM olume] source source in data data Serum or Plasma Bilirub 0.5 0.2 - mg/dl No No Sep 3 in.tota 1.0 informa informa 2014 l tion in tion in 2:24 PM [Mass/v source source olume] data data in Serum or Plasma Asparta 18 15 - 37 IU/L No No Sep 3 te informa informa 2014 aminotr tion in tion in 2:24 PM ansfera source source se data data [Enzyma tic activit y/volum e] in Serum or Plasma Alanine 28 12 - 78 IU/L No No Sep 3 informa informa 2014 aminotr tion in tion in 2:24 PM ansfera source source se data data [Enzyma tic activit y/volum e] in Serum or Plasma Alkalin 96 42 - 98 IU/L No No Sep 3 e informa informa 2014 phospha tion in tion in 2:24 PM tase source source [Enzyma data data tic activit y/volum e] in Serum or Plasma Protein 8.0 6.4 - g/dl No No Sep 3 8.2 informa informa 2013 [Mass/v tion in tion in 2:24 PM olume] source source in data data Serum or Plasma Albumin 3.7 3.4 - g/dl No No Sep 3 5.0 informa informa 2013 [Mass/v tion in tion in 2:24 PM olume] source source in data data Serum or Plasma GLOBULI 4.3 1.3 - g/dl High No Sep 3 N 3.5 informa 2013 tion in 2:24 PM source data A/G 0.9 1.0 - ratio Low No Sep 3 RATIO 3.9 informa 2013 tion in 2:24 PM source data \\BLDo\\G No No No No Sep 3 LOMERUL informa informa informa informa 2014 AR tion in tion in tion in tion in 2:24 PM FILTRAT source source source source ION data data data data RATE INTERPR ETATION \\BLDx\\ Normal No No No No Sep 3 Range: informa informa informa informa 2014 >60 tion in tion in tion in tion in 2:24 PM Ml/min/ source source source source 1.73 sq data data data data meters If No No No No Sep 3 patient informa informa informa informa 2014 is tion in tion in tion in tion in 2:24 PM source source source source data data data data Balbina n, multipl y GFR by 1.120. *GFR No No No No Sep 3 only informa informa informa informa 2014 applies tion in tion in tion in tion in 2:24 PM to source source source source adults data data data data over the age 18. BNP NT pro Observa Value Referen Units Interpr Notes Date tion ce etation Range NT-proB 183 0 - 131 pg/ml High No Sep 3 MANAGER CLINICAL RESEARCH informa 2014 tion in 2:24 PM source data This No No No No Sep 3 informa informa informa informa 2014 analyte tion in tion in tion in tion in 2:24 PM has source source source source conside data data data data rable variabi lity in patient s without known heart No No No No Sep 3 disease informa informa informa informa 2014 and tion in tion in tion in tion in 2:24 PM for source source source source this data data data data reason it is difficu lt to assign strict referen No No No No Sep 3 ce informa informa informa informa 2014 ranges tion in tion in tion in tion in 2:24 PM that source source source source would data data data data account for all circums tances. NT-proB No No No No Sep 3 MANAGER CLINICAL RESEARCH can informa informa informa informa 2014 show tion in tion in tion in tion in 2:24 PM substan source source source source tial data data data data increas es in patient s without heart failure No No No No Sep 3 with informa informa informa informa 2014 increas tion in tion in tion in tion in 2:24 PM ing age source source source source and data data data data advanci ng renal insuffi ciency; males in No No No No Sep 3 general informa informa informa informa 2014 have tion in tion in tion in tion in 2:24 PM somewha source source source source t data data data data higher values than females . There are other causes No No No No Sep 3 of informa informa informa informa 2014 increas tion in tion in tion in tion in 2:24 PM ed source source source source NT-proB data data data data MANAGER CLINICAL RESEARCH not related to congest dennis heart failure No No No No Sep 3 also. informa informa informa informa 2014 For use tion in tion in tion in tion in 2:24 PM as a source source source source screeni data data data data ng test, values less than 131pg/m l are No No No No Sep 3 recomme informa informa informa informa 2014 nded tion in tion in tion in tion in 2:24 PM below source source source source the age data data data data of 73. For patient s 75 years and older, No No No No Sep 3 a informa informa informa informa 2014 cutoff tion in tion in tion in tion in 2:24 PM of source source source source 450pg/n data data data data l is recomme nded. * TROPONIN I Observa Value Referen Units Interpr Notes Date tion ce etation Range Troponi 0.00 0.00 - ng/ml No No Sep 3 n 0.06 informa informa 2014 I.cardi tion in tion in 2:24 PM ac source source [Mass/v data data olume] in Serum or Plasma INITIAL YES No No No No Sep 3 informa informa informa informa 2014 TROPONI tion in tion in tion in tion in 2:24 PM N? source source source source data data data data RD BCK SARWAT No No No No Sep 3 VRFY: I informa informa informa informa 2014 [id number] tion in tion in tion in tion in 2:24 PM 1415 source source source source data data data data 0 - No No No No Sep 3 0.06 informa informa informa informa 2014 ng/ml tion in tion in tion in tion in 2:24 PM (NEGATI source source source source VE) data data data data > 0.06 No No No No Sep 3 ng/ml informa informa informa informa 2013 (POSITI tion in tion in tion in tion in 2:24 PM VE) source source source source data data data data CBC W DIFF AUTOMATED Observa Value Referen Units Interpr Notes Date tion ce etation Range Leukocy 7.2 4.5 - K/uL No No Sep 3 dixon 11.5 informa informa 2013 [#/volu tion in tion in 2:23 PM me] in source source Blood data data by Automat ed count Erythro 5.17 4.00 - M/uL No No Sep 3 cytes 5.40 informa informa 2013 [#/volu tion in tion in 2:23 PM me] in source source Blood data data by Automat ed count Hemoglo 14.0 12.0 - g/dL No No Sep 3 bin 15.0 informa informa 2013 [Mass/v tion in tion in 2:23 PM olume] source source in data data Blood Hematoc 42 35 - 49 % No No Sep 3 rit informa informa 2014 [Volume tion in tion in 2:23 PM source source Fractio data data n] of Blood by Automat ed count Erythro 81.2 80.0 - fL No No Sep 3 cyte 100 informa informa 2014 mean tion in tion in 2:23 PM corpusc source source ular data data volume [Entiti c volume] by Automat ed count Erythro 27.1 26.0 - pg No No Sep 3 cyte 32.0 informa informa 2014 mean tion in tion in 2:23 PM corpusc source source ular data data hemoglo bin [Entiti c mass] by Automat ed count Erythro 33.3 32.0 - g/dL No No Sep 3 cyte 36.0 informa informa 2014 mean tion in tion in 2:23 PM corpusc source source ular data data hemoglo bin concent ration [Mass/v olume] by Automat ed count Erythro 14.9 11.5 - % High No Sep 3 cyte 14.5 informa 2013 distrib tion in 2:23 PM ution source width data [Ratio] by Automat ed count Platele 409 150 - K/uL No No Sep 3 ts 450 informa informa 2014 [#/volu tion in tion in 2:23 PM me] in source source Blood data data by Automat ed count Lymphoc 28.3 18.0 - % No No Sep 3 ytes/10 42.0 informa informa 2014 0 tion in tion in 2:23 PM leukocy source source dixon in data data Blood by Automat ed count Monocyt 5.3 2.0 - % No No Sep 3 es/100 11.0 informa informa 2014 leukocy tion in tion in 2:23 PM dixon in source source Blood data data by Automat ed count Neutrop 64.4 50.0 - % No No Sep 3 hils.ba 70.0 informa informa 2014 nd tion in tion in 2:23 PM form/10 source source 0 data data leukocy dixon in Blood by Manual count Eosinop 1.00 1.00 - % No No Sep 3 hils/10 3.00 informa informa 2014 0 tion in tion in 2:23 PM leukocy source source dixon in data data Blood by Automat ed count Basophi 1.00 0.00 - % No No Sep 3 ls/100 2.00 informa informa 2014 leukocy tion in tion in 2:23 PM dixon in source source Blood data data by Automat ed count Lymphoc 2.04 0.60 - K/uL No No Sep 3 ytes/10 3.40 informa informa 2014 0 tion in tion in 2:23 PM leukocy source source dixon in data data Blood by Automat ed count Monocyt 0.38 0.00 - K/uL No No Sep 3 es/100 0.90 informa informa 2014 leukocy tion in tion in 2:23 PM dixon in source source Blood data data by Automat ed count Neutrop 4.66 2.00 - K/uL No No Sep 3 hils.ba 6.90 informa informa 2014 nd tion in tion in 2:23 PM form/10 source source 0 data data leukocy dixon in Blood by Manual count Eosinop 0.07 0.00 - K/uL No No Sep 3 hils/10 0.70 informa informa 2014 0 tion in tion in 2:23 PM leukocy source source dixon in data data Blood by Automat ed count Basophi 0.07 0.00 - K/uL No No Sep 3 ls/100 0.20 informa informa 2014 leukocy tion in tion in 2:23 PM dixon in source source Blood data data by Automat ed count Manual NOT No No No No Sep 3 Diff INDICAT informa informa informa informa 2014 ED tion in tion in tion in tion in 2:23 PM source source source source data data data data Comprehensive metabolic 1998 panel in Serum or Plasma Observa Value Referen Units Interpr Notes Date tion ce etation Range Sodium 139 136 - mmol/L No No Sep 17 [Moles/ 145 informa informa 2013 volume] tion in tion in 11:55 in source source AM Serum data data or Plasma Potassi 4.2 3.50 - mmol/L No No Sep 17 um 5.10 informa informa 2013 [Moles/ tion in tion in 11:55 volume] source source AM in data data Serum or Plasma Chlorid 103 98 - mmol/L No No Sep 17 e 107 informa informa 2012 [Moles/ tion in tion in 11:55 volume] source source AM in data data Serum or Plasma TOTAL 27 21 - 32 mmol/L No No Sep 17 CO2 informa informa 2013 tion in tion in 11:55 source source AM data data ANION 13 5 - 15 mmol/L No No Sep 17 GAP informa informa 2013 tion in tion in 11:55 source source AM data data Glucose 99 70 - mg/dl No No Sep 17 120 informa informa 2013 [Mass/v tion in tion in 11:55 olume] source source AM in data data Serum or Plasma Urea 7 7 - 18 mg/dl No No Sep 17 nitroge informa informa 2013 n tion in tion in 11:55 [Mass/v source source AM olume] data data in Serum or Plasma Creatin 1.0 0.60 - mg/dl No No Sep 17 ine 1.30 informa informa 2013 [Mass/v tion in tion in 11:55 olume] source source AM in data data Serum or Plasma AGE 37 No yrs No No Sep 17 informa informa informa 2013 tion in tion in tion in 11:55 source source source AM data data data GFR 60 No ml/min No No Sep 17 informa informa informa 2013 tion in tion in tion in 11:55 source source source AM data data data Calcium 8.8 8.50 - mg/dl No No Sep 17 10.10 informa informa 2013 [Mass/v tion in tion in 11:55 olume] source source AM in data data Serum or Plasma Bilirub 0.3 0.20 - mg/dl No No Sep 17 in.tota 1.0 informa informa 2013 l tion in tion in 11:55 [Mass/v source source AM olume] data data in Serum or Plasma Asparta 10 15 - 37 IU/L Low No Sep 17 te informa 2013 aminotr tion in 11:55 ansfera source AM se data [Enzyma tic activit y/volum e] in Serum or Plasma Alanine 20 12 - 78 IU/L No No Sep 17 informa informa 2013 aminotr tion in tion in 11:55 ansfera source source AM se data data [Enzyma tic activit y/volum e] in Serum or Plasma Alkalin 74 50 - IU/L No No Sep 17 e 136 informa informa 2013 phospha tion in tion in 11:55 tase source source AM [Enzyma data data tic activit y/volum e] in Serum or Plasma Protein 7.6 6.40 - g/dl No No Sep 17 8.20 informa informa 2013 [Mass/v tion in tion in 11:55 olume] source source AM in data data Serum or Plasma Albumin 3.5 3.40 - g/dl No No Sep 17 5.0 informa informa 2012 [Mass/v tion in tion in 11:55 olume] source source AM in data data Serum or Plasma GLOBULI 4.1 1.30 - g/dl High No Sep 17 N 3.50 informa 2012 tion in 11:55 source AM data A/G 0.9 1.0 - ratio Low No Sep 17 RATIO 3.90 informa 2012 tion in 11:55 source AM data GLOMERU No No No No Sep 17 LAR informa informa informa informa 2013 FILTRAT tion in tion in tion in tion in 11:55 ION source source source source AM RATE data data data data INTERPR ETATION Normal No No No No Sep 17 Range: informa informa informa informa 2013 60 tion in tion in tion in tion in 11:55 Ml/min/ source source source source AM 1.73 sq data data data data meters If No No No No Sep 17 patient informa informa informa informa 2013 is tion in tion in tion in tion in 11:55 source source source source AM data data data data Balbina n, multipl y GFR by 1.120. *GFR No No No No Sep 17 only informa informa informa informa 2013 applies tion in tion in tion in tion in 11:55 to source source source source AM adults data data data data over the age 18. 03509-9 Observa Value Referen Units Interpr Notes Date tion ce etation Range Leukocy 7.7 4.60 - K/uL No No Sep 17 dixon 10.20 informa informa 2013 [#/volu tion in tion in 11:39 me] in source source AM Blood data data by Automat ed count Erythro 5.13 4.04 - M/uL No No Sep 17 cytes 6.13 informa informa 2013 [#/volu tion in tion in 11:39 me] in source source AM Blood data data by Automat ed count Hemoglo 13.2 12.20 - g/dL No No Sep 17 bin 18.10 informa informa 2013 [Mass/v tion in tion in 11:39 olume] source source AM in data data Blood Hematoc 41 37.70 - % No No Sep 17 rit 53.70 informa informa 2013 [Volume tion in tion in 11:39 source source AM Fractio data data n] of Blood by Automat ed count Erythro 79.9 80.0 - fL Low No Sep 17 cyte 97.0 informa 2013 mean tion in 11:39 corpusc source AM ular data volume [Entiti c volume] by Automat ed count Erythro 25.7 27.0 - pg Low No Sep 17 cyte 31.20 informa 2013 mean tion in 11:39 corpusc source AM ular data hemoglo bin [Entiti c mass] by Automat ed count Erythro 32.2 31.80 - g/dL No No Sep 17 cyte 35.40 informa informa 2013 mean tion in tion in 11:39 corpusc source source AM ular data data hemoglo bin concent ration [Mass/v olume] by Automat ed count Erythro 15.7 11.60 - % High No Sep 17 cyte 14.80 informa 2013 distrib tion in 11:39 ution source AM width data [Ratio] by Automat ed count Platele 417 142 - K/uL No No Sep 17 ts 424 informa informa 2013 [#/volu tion in tion in 11:39 me] in source source AM Blood data data by Automat ed count Lymphoc 27.1 10.0 - % No No Sep 17 ytes/10 50.0 informa informa 2013 0 tion in tion in 11:39 leukocy source source AM dixon in data data Blood by Automat ed count Monocyt 6.4 0.0 - % No No Sep 17 es/100 12.0 informa informa 2013 leukocy tion in tion in 11:39 dixon in source source AM Blood data data by Automat ed count Neutrop 65.2 37.0 - % No No Sep 17 hils.ba 80.0 informa informa 2013 nd tion in tion in 11:39 form/10 source source AM 0 data data leukocy dixon in Blood by Manual count Eosinop 0.90 0.00 - % No No Sep 17 hils/10 7.00 informa informa 2013 0 tion in tion in 11:39 leukocy source source AM dixon in data data Blood by Automat ed count Basophi 0.40 0.00 - % No No Sep 17 ls/100 2.50 informa informa 2013 leukocy tion in tion in 11:39 dixon in source source AM Blood data data by Automat ed count Lymphoc 2.08 0.60 - K/uL No No Sep 17 ytes/10 3.40 informa informa 2013 0 tion in tion in 11:39 leukocy source source AM dixon in data data Blood by Automat ed count Monocyt 0.49 0.00 - K/uL No No Sep 17 es/100 0.90 informa informa 2013 leukocy tion in tion in 11:39 dixon in source source AM Blood data data by Automat ed count Neutrop 5.00 2.00 - K/uL No No Sep 17 hils.ba 6.90 informa informa 2013 nd tion in tion in 11:39 form/10 source source AM 0 data data leukocy dixon in Blood by Manual count Eosinop 0.07 0.00 - K/uL No No Sep 17 hils/10 0.70 informa informa 2013 0 tion in tion in 11:39 leukocy source source AM dixon in data data Blood by Automat ed count Basophi 0.03 0.00 - K/uL No No Sep 17 ls/100 0.20 informa informa 2013 leukocy tion in tion in 11:39 dixon in source source AM Blood data data by Automat ed count Manual NOT No No No No Sep 17 Diff INDICAT informa informa informa informa 2013 ED tion in tion in tion in tion in 11:39 source source source source AM data data data data CHEST AP LA Observa Value Referen Units Interpr Notes Date tion ce etation Range CHEST No No No No Sep 17 AP LA informa informa informa informa 2013 tion in tion in tion in tion in 11:07 source source source source AM data data data data [facility] L\\.br\\ [address]\\.br \\ [place] [address]\\. br\\\\.br \\ RADIOLO GY REPORT\\ .br\\ Name: HAVEN MCKEON \\.br\\ Patient #: [id number] Stay Type: O/P\\.br \\ Age: 37 Room:\\. br\\ : 973 Sex: F\\.br\\ Orderin g Phys: JHONNY SA MR#: [id number]\\. br\\ Family Phys: JHONNY SA Pt Phone: [phone]\\. br\\ Admitti ng Phys: JHONNY SA\\.br\\ Unsig rachell Transcr iptions represe nt a prelimi nary report and do\\.br\\ not reflect a medical or legal documen t.\\.b r\\\\.br\\ \\.br\\ " !\\.br\\ 10 )$)('&% $#\\.br\\ \\.br\\\\. br\\ HISTORY /INDICA TION: chest pain, abdomin al pain, shortne ss of breath, and cough. History of\\.br\\ tobacco use. Compare d to 11/06/08 examina tion.\\. br\\\\.br \\ PA and lateral project ions of the chest show the lung peterson are well aerated . There is subhila r\\.br\\ nodular ity on the left more promine nt than previou s exam. I see no definit e acute airspac e disease .\\.br\\ The heart size is within normal limits. No venous congest ion or effusio n.\\.br\\ \\.br\\ IMPRESS ION: Left subhila r nodular ity. Recomme nd follow- up enhance d CT of the chest in this\\.b r\\ tobacco -using patient . No definit e acute cardiop ulmonar y abnorma lity.\\. br\\\\.br \\\\.br\\ Electro nically reviewe d and signed by:\\.br \\ MALKA APPIAH MD\\.br\\ RADIOLO GIST/ 17:01\\. br\\\\.br \\ Dictati on Date/Ti me: 02/23/13 1354 Dictate d By: MALKA APPIAH MD [facility]\\.b r\\ Transcr . Date/Ti me: 02/23/13 / 16:49 Transcr . Init.: JFM\\.br \\\\.br\\ Copy for: JHONNY ZELAYA M.D. via link\\.b r\\\\.br\\
--- OUTSIDE RECORDS SUMMARY | 2017-04-14 13:30 | External Medical Summary Rpt ---
[...] Type : REG CLI\\.br \\ : [id number] Rm/Bed :\\.br\\A ge/Sex : 40/F\\.b r\\\\.br\\ Orderin g Physici an : Sirisha Cameron PA-C Tech : López Grullon\\. br\\Acce ssion # : [id number] Time In : 1601\\.b r\\Categ ory: [...] would account for all circums tances. NT-proB CLINICAL DATA COORDINATOR can show substan tial increas es in patient s without heartfa ilure with increas ing age and advanci ng renal insuffi ciency; malesin general have somewha t higher values than females . There are otherca uses of increas ed NT-proB CLINICAL DATA COORDINATOR not related to congest dennis heartfa ilure [...] source source PM data data data data [facility] L\\.br\\ [address]\\.br \\ [place] [address]\\. br\\\\.br \\ RADIOLO GY REPORT\\ .br\\ Name: HAVEN MCKEON \\.br\\ Patient #: [id number] Stay Type: E/R\\.br \\ Age: 40 Room: [facility]\\. br\\ : 973 Sex: F\\.br\\ Orderin g Phys: JEREMIAH HARPER MR#: [id number]\\. br\\ Family Phys: CRISTHIAN GUERRERO Pt Phone: [phone]\\. br\\ Admitti ng Phys: JEREMIAH HARPER\\.b r\\ Unsig rachell Transcr iptions represe nt a prelimi nary report and do\\.br\\ not reflect a medical or legal documen t.\\.b r\\\\.br\\ \\.br\\ [place] [address] COMPLET E:05/28 12:53 CGS [id number]\\. br\\ (REASON FOR CHEST: COUGH\\. br\\\\.br \\\\.br\\\\ [...] Copy for: JEREMIAH MEDINA\\. br\\ Copy for: [facility] HEALTH INFORMA TION MANAGEM ENT\\.br \\ DISCHAR GED\\.br \\\\.br\\ CT CHEST W Observa Value Referen Units Interpr Notes Date tion ce etation Range CT No No No No Sep 3 CHEST W informa informa informa informa 2013 tion in tion in tion in tion in 4:14 PM source source source source data data data data [facility] L\\.br\\ [address]\\.br \\ [place] [address]\\. br\\\\.br \\ RADIOLO GY REPORT\\ .br\\ Name: HAVEN MCKEON \\.br\\ Patient #: [id number] Stay Type: E/R\\.br \\ Age: 38 Room: [facility]\\. br\\ : 973 Sex: F\\.br\\ Orderin g Phys: BETHEL SUAREZ MR#: [id number]\\. br\\ Family Phys: JHONNY SINGH Pt Phone: [phone]\\. br\\ Admitti ng Phys: BETHEL SUAREZ\\.b r\\ [...] / 08:42 Transcr . Init.: amh\\.br \\ [facility]\\.br\\ [address]\\.br \\ [place] [address]\\. br\\\\.br \\ RADIOLO GY REPORT\\ .br\\ Name: HAVEN MCKEON \\.br\\ Patient #: [id number] Stay Type: E/R\\.br \\ Age: 38 Room: [facility]\\. br\\ : 973 Sex: F\\.br\\ Orderin g Phys: BETHEL SUAREZ MR#: [id number]\\. br\\ Family Phys: JHONNY SA Pt Phone: [phone]\\. br\\ Admitti ng Phys: SADEK MOHA\\.b r\\ [...] source source source data data data data [facility]\\.br\\ [address]\\.br \\ [place] [address]\\. br\\\\.br \\ RADIOLO GY REPORT\\ .br\\ Name: HAVEN MCKEON \\.br\\ Patient #: [id number] Stay Type: E/R\\.br \\ Age: 38 Room: [facility]\\. br\\ : 973 Sex: F\\.br\\ Orderin g Phys: BETHEL SUAREZ MR#: [id number]\\. br\\ Family Phys: JHONNY SINGH Pt Phone: [phone]\\. br\\ Admitti ng Phys: BETHEL SUAREZ\\.b r\\ [...] - 131 pg/ml High No Sep 3 CLINICAL DATA COORDINATOR informa 2014 tion in 2:24 PM source [...] NT-proB No No No No Sep 3 CLINICAL DATA COORDINATOR can informa informa informa informa 2014 show [...] source source NT-proB data data data data CLINICAL DATA COORDINATOR not related to congest dennis heart failure [...] VRFY: I informa informa informa informa 2014 [id number] tion in tion in tion in tion [...] data data data over the age 18. 43522-2 Observa Value Referen Units Interpr Notes Date [...] source source AM data data data data [facility] L\\.br\\ [address]\\.br \\ [place] [address]\\. br\\\\.br \\ RADIOLO GY REPORT\\ .br\\ Name: HAVEN MCKEON \\.br\\ Patient #: [id number] Stay Type: O/P\\.br \\ Age: 37 Room:\\. br\\ : 973 Sex: F\\.br\\ Orderin g Phys: JHONNY SA MR#: [id number]\\. br\\ Family Phys: JHONNY SA Pt Phone: [phone]\\. br\\ Admitti ng Phys: JHONNY SA\\.br\\ Unsig [...] Dictate d By: MALKA APPIAH MD [facility]\\.b r\\ Transcr . Date/Ti me: 02/23/13 / 16:49 Transcr . Init.: JFM\\.br \\\\.br\\ Copy for: JHONNY ZELAYA M.D. via link\\.b r\\\\.br\\
[2017-04-14 13:47] LABS: BUN 5 mg/dL (7-18)
[2017-04-14 13:50] LABS: GFR (ESTIMATED) 78 ML/MIN (59-)
--- OUTSIDE RECORDS SUMMARY | 2017-04-14 15:03 | External Medical Summary Rpt | CCD ---
Author Author , LEAH LYNN Address Unknown Phone [email or web address] Care Team Providers Care Elementary Assistant Principal Name Role Phone JAH BECKER, Unavailable Unavailable RADHA BECKERANDA AWOSIAZALEA DIXIE, AWOSIKA Unavailable Unavailable DIXIE CHOE, CHOE Unavailable Unavailable [facility] Unavailable Unavailable [facility], [facility] CINDY LONG, Unavailable Unavailable CINDY LONG [facility], Unavailable Unavailable [facility], Unavailable Unavailable [facility] Unavailable Unavailable [facility] [place] DANIELS JAM, DANIELS JAM Unavailable Unavailable [facility], Unavailable Unavailable [facility] Unavailable Unavailable INC, [facility] Unavailable Unavailable HOSPITAL P, [facility] MALKA APPIAH, Unavailable Unavailable MALKA APPIAH [facility], Unavailable Unavailable [facility] NURSE Unavailable Unavailable PRACTITIONER GR, [facility] NURSE PRACTITIONER [facility] Unavailable Unavailable [facility], [facility] Unavailable Unavailable [facility], [facility] [place] [facility] Unavailable Unavailable [facility] Unavailable Unavailable [facility], [facility] Unavailable [facility]available [facility] Unavailable [...] MED[facility] Unavailable Unavailable RADIOLOG, [facility] Unavailable [facility]available [facility], [facility], Unavailable Unavailable [facility] MARY CARMEN NGERO, Unavailable Unavailable MARY CARMEN NEGRO Purpose Continuity of Care Document - 07-28-2007 through 2016 Problems Code Diagnosis DOS Provider Status [id number] MORBID 02-27-2017 [facility] OBESITY DUE TO EXCESS CALORIES J020 STREPTOCOCC 02-14-2017 [facility] PHARYNGITIS N644 MASTODYNIA 12-23-2016 [facility] [place] [facility] [id number] PAIN IN 11-25-2016 [facility] RIGHT [facility] SHOULDER G4733 OBSTRUCTIVE 10-19-2016 [facility] APNEA ADULT MEDICAL PEDIATRIC EQUIPME M2550 PAIN IN 10-09-2016 S NURSE UNSPECIFIED PRACTITIONE JOINT R GR M797 FIBROMYALGI 10-09-2016 [facility] NURSE A PRACTITIONE R GR Z6842 BODY MASS 10-09-2016 [facility] NURSE INDEX BMI PRACTITIONE 45.0-49.9 R GR ADULT M549 DORSALGIA 09-19-2016 [facility] UNSPECIFIED HOME MEDICAL EQUIPME G4710 HYPERSOMNIA 09-06-2016 JAMEEL MOODY MD UNSPECIFIED CONSULTING SRV E785 HYPERLIPIDE 08-29-2016 [facility] M[facility] [place] UNSPECIFIED HOLDINGS G479 SLEEP 08-29-2016 [facility] DISORDER [facility] UNSPECIFIED I10 ESSENTIAL 08-29-2016 [facility] HYPERTENSIO N R5383 OTHER 08-29-2016 [facility] FATIGUE [place] [facility] R7309 OTHER 08-29-2016 [facility] ABNORMAL [place] GLUCOSE HOLDINGS Z720 TOBACCO USE 08-29-2016 [facility] Z8639 PERSONAL HX 08-29-2016 [facility] ENDOCRN NUTRITIONL& METAB DISEASE H5213 MYOPIA 08-16-2016 [facility] BILATERAL H524 PRESBYOPIA 08-16-2016 [facility] R911 SOLITARY 07-05-2016 [facility] R918 OTHER 07-05-2016 [facility] [place] NONSPECIFIC RADIOLOG[facility] ABNORMAL FINDING OF LUNG FIELD E7800 PURE 07-01-2016 [facility] UNSPECIFIED J449 CHRONIC 07-01-2016 [facility]ERG[facility]Y PULMONARY PHYS DISEASE UNS M940 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 [facility] AL JUNCTION N EMERGENCY SYNDROME PHYS TIETZE R0602 SHORTNESS 07-01-2016 [facility] OF BREATH CLINIC R0789 OTHER CHEST 07-01-2016 [facility] PAIN N EMERGENCY PHYS D83206 OTHER LONG 07-01-2016 [facility] DRUG THERAPY Z888 ALLERGY 07-01-[address] [facility] [address] [facility] RX [facility] & HOSPITAL BIOLOG SUBSTANC STS R49714 LATEX 07-01-2016 [facility] R0989 OT SPEC SX 06-28-2016 [facility] & SIGNS CLINIC INVLV THE CIRC & RESP SYS R05 COUGH 06-05-2016 [facility] [place] [facility] R0689 OTHER 06-05-2016 [facility] ABNORMALITI [facility]IC ES OF BREATHING R509 FEVER 06-05-2016 [facility] [place] UNSPECIFIED RADIOLOGY M5116 INTERVERTEB 05-13-2016 [facility] W/RADICULOP ATHY LUMB RGN M5136 OT 05-13-2016 [facility] RAL DISC HOSPI DEGEN LUMBAR REGION M545 LOW BACK 05-13-2016 [facility] F30379 PERSONAL 05-13-2016 [facility] DEPENDENCE X29926 PAIN IN 05-06-2016 [facility] R9431 ABNORMAL 05-06-2016 [facility] ELECTROCARD SERV IOGRAM [facility] M4806 SPINAL 04-26-2016 [facility] STENOSIS SERV LUMBAR FOUNDATION REGION M5126 OT 04-26-2016 [facility] RAL DISC DISPLACEMEN T LUMBAR RGN M5416 RADICULOPAT 04-26-2016 [facility] REGION J3489 OTHER 04-25-2016 [facility] SPECIFIED [facility] DISORDERS NOSE AND NASAL SINUSES Z23 ENCOUNTER 03-21-2016 [facility] FOR [facility]INIC IMMUNIZATIO N M6281 MUSCLE 03-15-2016 S NURSE WEAKNESS PRACTITIONE GENERALIZED R GR R200 ANESTHESIA 03-15-2016 [facility] R32 UNSPECIFIED 03-15-2016 S NURSE URINARY PRACTITIONE INCONTINENC R GR E M5430 SCIATICA 03-08-2016 [facility] UNSPECIFIED SERV SIDE FOUNDATION M5440 LUMBAGO 03-08-2016 [facility] WITH SERV [facility] UNSPECIFIED SIDE M5417 RADICULOPAT 02-20-2016 [facility] LUMBOSACRAL MEDIC REGION M2578 OSTEOPHYTE 02-16-2016 [facility] M4807 SPINAL 02-16-2016 [facility] LUMBOSACRAL RADIOLOG REGION M5117 INTERVERTEB 02-16-2016 [facility] RAL DISC REGIONAL D/O MEDIC W/RADICULOP ATHY LS RGN M5127 OTH 02-16-2016 [facility] REG[facility]AL RAL DISC RADIOLOG DISPLACEMEN T LS REGION M7062 TROCHANTERI 02-07-2016 [facility] REGIONAL LEFT HIP MEDIC R37502 STIFFNESS 02-03-2016 [facility] OF RIGHT FAMILY HIP NOT CHIROPRACTI ELSEWHERE CLASSIFIED Y74354 STIFFNESS 02-03-2016 [facility] OF LEFT HIP FAMILY NOT CHIROPRACTI ELSEWHERE CLASSIFIED M5137 OTH 02-03-2016 [facility] INTER[facility]TE[facility] FAMILY RAL DISC CHIROPRACTI DEGEN LUMBOSACRAL REGION M532X7 SPINAL 02-03-2016 [facility] INSTABILITI FAMILY ES CHIROPRACTI LUMBOSACRAL REGION M5432 SCIATICA 02-03-2016 [facility] LEFT SIDE FAMILY CHIROPRACTI M9903 SEGMENTAL & 02-03-2016 [facility] 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 M9904 SEGMENTAL & 02-03-2016 [facility] SOMATIC 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 SACRAL REGION Z26848 PAIN IN 01-30-2016 [facility] UNSPECIFIED [place] HIP HOLDINGS L732 HIDRADENITI 12-14-2015 [facility] S SUPPURATIVA V12661 PAIN IN 12-01-2015 [facility] [place] LEFT HIP RADIOLOGY M5186 OTHER 12-01-2015 [facility] DISORDER LUMBAR REGION D225 MELANOCYTIC 11-13-2015 [facility] NEVI OF TRUNK L578 OTH SKN 11-13-2015 [facility] CHANGES D/T CHRN EXPS TO NONIONIZING RAD L814 OTHER 11-13-2015 [facility] MELANIN HYPERPIGMEN TATION L821 OTHER 11-13-2015 [facility] SEBORRHEIC KERATOSIS L906 STRIAE 11-13-2015 [facility] ATROPHICAE P62258W UNSPECIFIED 10-19-2015 [facility] LEFT ANKLE INITIAL ENCOUNTER J069 ACUTE UPPER 09-05-2015 [facility] RESPIR[facility] INFECTION UNSPECIFIED N92225 CHRONIC 07-19-2015 [facility] TENSION-TYP CLINIC E HEADACHE [...] [facility] UNSPECIFIED [facility] INC [place] 77434 CHEST PAIN 11-11-2014 [place] [facility]PECIF[facility] SERV [facility] 12821 HYPERTENSIV 11-07-2014 [facility] E HEART [facility] DISEASE INC UNSPEC W/HEART FAIL 02856 CORONARY 11-07-2014 [facility]CLER [facility] CORONARY ARTERY 4168 OTHER 11-07-2014 [facility] CHRONIC [facility] PULMONARY INC HEART DISEASES 4280 CONGESTIVE 11-07-2014 [facility] HEART [facility] FAILURE INC UNSPECIFIED 4281 LEFT HEART 11-07-2014 [facility] FAILURE [facility] INC 62136 SHORTNESS 11-07-2014 [facility] OF BREATH [facility] INC 34237 OTHER CHEST 11-07-2014 [facility] PAIN [facility] 2189 LEIOMYOMA 09-02-2014 [facility] UNSPECIFIED 08413 MORBID 09-02-2014 [facility] OBESITY [facility] 5680 PERITONEAL 09-02-2014 [facility] ADHESIONS [facility] 6146 PELVIC 09-02-2014 [facility] PERITONEAL PHYSICIANS ADHESIONS, GROUP FEMALE 6212 HYPERTROPHY 09-02-2014 [facility] 6243 HYPERTROPHY 09-02-2014 [facility] OF [facility] 6250 DYSPAREUNIA 09-02-2014 [facility] 6262 EXCESSIVE 09-02-2014 [facility] OR FREQUENT PHYSICIANS GROUP MENSTRUATIO N 6268 OTH D/O 09-02-2014 [facility] MENSTRUATIO ANESTH OF N&OTH ABN THE BLUE BLEED FE GNT TRACT V7283 OTHER 09-01-2014 [facility] SPECIFIED [facility] P VE EXAMINATION 94883 OBESITY, 08-09-2014 [facility] UNSPECIFIED [facility]INIC 6235 LEUKORRHEA [...] SCREENING 05-19-2014 [facility] FOR [facility]INIC UNSPECIFIED CONDITION 58593 OTHER 05-18-2014 [facility] MALAISE AND [place] FATIGUE HOLDINGS 23628 OTHER 05-17-2014 [facility] [place] NONSPECIFIC RADIOLOG[facility] ABNORMAL FINDING OF LUNG FIELD 7867 ABNORMAL 05-10-2014 JAMEEL MOODY CHEST SOUNDS CONSULTING SERV 7862 COUGH 04-27-2014 [facility] [place] [facility] 7906 OTHER 04-27-2014 [facility] ABNORMAL [place] BLOOD HOLDINGS CHEMISTRY 7962 ELEVATED BP 04-27-2014 [facility] READING [place] WITHOUT DX HOLDINGS HYPERTENSIO N 486 PNEUMONIA, 02-21-2014 CLARKE Kemp ORGANISM JHONNY PHILLIPS UNSPECIFIED PSC 70092 ESOPHAGEAL 02-21-2014 CLARKE Kemp REFLUX JHONNY PHILLIPS PSC 7804 DIZZINESS 02-21-2014 CLARKE HERNANDEZ MD GIDDINESS PSC 41064 HYPOXEMIA 02-21-2014 CLARKE BARRY MD PSC 6253 DYSMENORRHE 04-30-2013 [facility] PRIMARY [facility]ARE CENTER V2540 UNSPECIFIED 04-30-2013 [facility] VE SURVEILLANC E 5959 UNSPECIFIED 03-15-2013 CLARKE Kemp CYSTITIS JHONNY PHILLIPS PSC 91169 DIARRHEA 03-15-2013 CLARKE BARRY MD PSC 46958 OTHER 02-23-2013 [facility] DISEASES OF RADIOLOGY LUNG NOT ASSOCIAT ELSEWHERE CLASSIFIED 74853 ABDOMINAL 02-23-2013 [facility] PA[facility] UNSPECIFIED SITE 2449 UNSPECIFIED 02-18-2013 [facility] HYPOTHYROID ISM V700 ROUTINE 02-18-2013 [facility] MEDICAL EXAM@HEALTH CARE FACL 62224 OVERWEIGHT 02-17-2013 CLARKE BARRY MD PSC V7231 ROUTINE 02-03-2013 [facility] EXAMINATION V7381 SPECIAL 02-03-2013 [facility] EXAMINATION HUMAN PAPILVIRUS 3671 MYOPIA 01-20-2013 [facility] DIXIE 40216 UNSPECIFIED 01-20-2013 AWOSIKA DIXIE ASTIGMATISM 7245 UNSPECIFIED 11-11-2007 [facility] 66451 SPASM OF 10-23-2007 [facility] 7218 OTHER 10-08-2007 [facility] ALLIED RADIOLOGY 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 SPINE PSC 91928 HYPERVENTIL 07-28-2007 [facility] ATION HOSP 08013 OTHER 07-28-2007 [facility] DYSPNEA AND HOSP RESPIRATORY ABNORMALITI ES Allergies, Adverse Reactions, Alerts Clinical Alert Notifications Alert Asthma: no influenza vaccine in the last 365 days Medications Na ND Rx Da Fi Fi [...] 91 17 17 32 FA 4 42 SD [address] UG TA BL ET AM 66 09 10 20 10 00 SO Ac OX 68 -0 -0 .0 00 PE ti -C 51 8- 6- 00 00 RS ve LA 00 20 20 57 V 10 17 17 21 FA 87 0 46 SD 5- LY [address] MG UG TA BL ET AT 00 09 10 30 30 00 SO Ac OR 37 -1 -0 .0 00 PE ti VA 83 1- 6- [address] 95 20 20 57 AT 20 17 17 22 FA IN [address] MG UG TA BL ET SY 00 09 10 10 30 00 SO Ac MB 18 -1 -0 .1 00 PE ti IC 60 1- 6- 99 00 RS ve OR 37 20 20 57 T 02 17 17 23 FA 16 0 00 SD 0- LY 4. 5 DR SAM UG G IN [place] 68 09 09 60 30 00 SO Ac RV 38 -0 -2 .0 00 PE ti ED 20 1- 9- 00 00 RS ve IL 09 20 20 56 OL 30 17 17 96 FA 5 27 SD 6. LY 25 DR MG UG TA BL ET HY 16 09 09 [address] 72 -0 -2 .0 00 PE ti OC 90 1- 9- 00 00 RS ve HL 18 20 20 56 OR 31 17 17 96 FA OT 7 26 SD HI LY [place] ID DR Chetan UG 25 MG TA B VE 00 09 09 18 20 00 SO Ac NT 17 -0 -2 .0 00 PE ti OL 30 1- 9- 00 00 RS ve IN 68 20 20 56 22 17 17 96 FA HF 0 25 SD A LY 90 DR [place] IN [place] R DI 61 09 09 60 30 00 SO Ac CL 44 -0 -2 .0 00 PE ti OF 20 1- 9- 00 00 RS ve EN 10 20 20 56 AC 31 17 17 96 FA 0 24 SD SO LY D DR DR OLVERA 75 MG TA B LO 65 09 09 30 30 00 SO Ac SA 86 -0 -2 .0 00 PE ti RT 20 1- 9- 00 00 RS ve AN 20 20 20 56 29 17 17 96 FA PO 9 23 SD TA LY SS IU DR Carey OLVERA 50 MG TA B GA 65 08 09 27 30 00 WA Ac BA 16 -2 -1 0. 00 L- ti PE 20 1- 5- 00 04 MA ve NT 10 20 20 0 52 RT IN 25 17 17 22 0 57 PH 30 AR 0 MA MG CY CA #4 PS 93 UL E LO 65 08 09 30 30 00 SO Ac SA 86 -0 -0 .0 00 PE ti RT 20 4- 1- 00 00 RS ve AN 20 20 20 56 29 17 17 96 FA PO 9 23 SD TA LY SS IU DR Carey OLVERA 50 MG TA B DI 61 08 09 60 30 00 SO Ac CL 44 -0 -0 .0 00 PE ti OF 20 4- 1- 00 00 RS ve EN 10 20 20 56 AC 31 17 17 96 FA 0 24 SD SO LY D DR DR OLVERA 75 MG TA B VE 00 08 09 18 20 00 SO Ac NT 17 -0 -0 .0 00 PE ti OL 30 4- 1- 00 00 RS ve IN 68 20 20 56 22 17 17 96 FA HF 0 25 SD A LY 90 DR [place] IN [place] R HY 16 08 09 [address] 72 -0 -0 .0 00 PE ti OC 90 4- 1- 00 00 RS ve HL 18 20 20 56 OR 31 17 17 96 FA OT 7 26 SD HI LY [place] ID DR Chetan OLVERA 25 MG TA B CA 68 08 09 60 30 00 SO Ac RV 38 -0 -0 .0 00 PE ti ED 20 4- 1- 00 00 RS ve IL 09 20 20 56 OL 30 17 17 96 FA 5 27 SD 6. LY 25 DR MG UG TA BL ET SY 00 08 09 10 30 00 SO Ac MB 18 -0 -0 .1 00 PE ti IC 60 4- 1- 99 00 RS ve OR 37 20 20 56 T 02 17 17 20 FA 16 0 71 SD 0- LY 4. 5 DR [place] IN [place] R [place] 53 07 08 27 30 00 WA Ac BA 74 -2 -1 0. 00 L- ti PE 60 2- 8- 00 04 MA ve NT 10 20 20 0 52 RT IN 20 17 17 22 5 57 PH 30 AR 0 MA MG CY CA #4 PS 93 UL E LO 65 06 07 30 30 00 SO Ac SA 86 -0 -0 .0 00 PE ti RT 20 8- 7- 00 00 RS ve AN 20 20 20 54 19 17 17 23 FA PO 0 27 SD TA LY SS IU DR Carey UG 25 MG TA B AT 00 06 07 30 30 00 SO Ac OR 37 -0 -0 .0 00 PE ti VA 83 8- 7- [address] 95 20 20 54 AT 20 17 17 23 FA IN 5 [address] MG UG TA BL ET SY 00 06 07 10 30 00 SO Ac MB 18 -0 -0 .1 00 PE ti IC 60 8- 7 99 00 RS ve OR 37 20 20 56 T 02 17 17 20 FA 16 0 71 SD 0- LY 4. 5 DR [place] IN [place] R HY 16 06 07 [address] 72 -0 -0 .0 00 PE ti OC 90 8- 7- 00 00 RS ve HL 18 20 20 54 OR 31 17 17 23 FA OT 7 21 SD HI LY [place] ID DR Chetan OLVERA 25 MG TA B VE 00 06 07 18 20 00 SO Ac NT 17 -1 -0 .0 00 PE ti OL 30 3- 7- 00 00 RS ve IN 68 20 20 56 22 17 17 21 FA HF 0 19 SD A LY 90 DR [place] IN [place] 53 06 27 30 00 WA [...] CY CA #4 PS 93 UL E CH 00 04 05 60 30 00 SO Ac AN 06 -2 -1 .0 00 PE ti TI 90 0- 9- 00 00 RS ve X 46 20 20 56 1 95 17 17 19 FA MG 6 92 SD LY TA BL DR ET UG SY 00 04 05 10 30 00 SO Ac MB 18 -2 -1 .1 00 PE ti IC 60 1- 9- 99 00 RS ve OR 37 20 20 56 T 02 17 17 20 FA 16 0 71 SD 0- LY 4. 5 DR SMITH G IN [place] R VE 00 04 05 18 20 00 SO Ac NT 17 -2 -1 .0 00 PE ti OL 30 4- 9- 00 00 RS ve IN 68 20 20 56 22 17 17 21 FA HF 0 19 SD A LY 90 DR SMITH G IN [place] R DU 57 04 05 30 30 00 SO Ac LO 23 -2 -1 .0 00 PE ti XE 70 4- 9- 00 00 RS ve TI 01 20 20 56 NE 89 17 17 21 FA 0 76 SD HC LY L DR DR OLVERA 30 MG CA P CH 00 03 04 53 28 00 SO Ac AN 06 -2 -2 .0 00 PE ti TI 90 3- 1- 00 00 RS ve X [address] 10 17 17 96 FA AR 3 08 SD TI LY NG DR TORO UG NT H [place] X SY 00 03 03 10 30 00 SO Ac MB 18 -0 -3 .1 00 PE ti IC 60 3- 99 00 RS ve OR 37 20 20 54 T 02 17 17 23 FA 16 0 28 SD 0- LY 4. 5 DR SMITH G IN [place] R LO 65 02 03 30 30 00 SO Ac SA 86 -2 -2 .0 00 PE ti RT 20 4- 4- 00 00 RS ve AN 20 20 20 54 19 17 17 23 FA PO 0 27 SD TA LY SS IU DR M UG 25 MG TA B CA 68 02 03 60 30 00 SO Ac RV 38 -2 -2 .0 00 PE ti ED 20 4- 4- 00 00 RS ve IL 09 20 20 54 OL 30 17 17 23 FA 5 23 SD 6. LY 25 DR MG UG TA BL ET HY 16 02 03 [address] 72 -2 -2 .0 00 PE ti OC 90 4- 4- 00 00 RS ve HL 18 20 20 54 OR 31 17 17 23 FA OT 7 21 SD HI LY [place] ID DR Chetan UG 25 MG TA B AT 00 02 03 30 30 00 SO Ac OR 37 -2 -2 .0 00 PE ti VA 83 4- 4- [address] 95 20 20 54 AT 20 17 17 23 FA IN 5 [address] MG UG TA BL ET DI 61 02 03 60 30 00 SO Ac CL 44 -2 -2 .0 00 PE ti OF 20 4- 4- 00 00 RS ve EN 10 20 20 54 AC 31 17 17 23 FA 0 26 SD SO LY D DR DR UG 75 MG TA B VE 00 02 03 18 20 00 SO Ac NT 17 -2 -2 .0 00 PE ti OL 30 4- 4- 00 00 RS ve IN 68 20 20 54 22 17 17 23 FA HF 0 19 SD A LY 90 DR MC UG G IN [place] R [place] 00 01 02 10 5 00 SO Ac ED 05 -2 -1 .0 00 PE ti NI 40 0- 7- 00 00 RS ve SO 01 20 20 55 NE 82 17 17 41 FA 9 15 SD [address] UG TA BL ET LE 55 01 02 7. 7 00 SO Ac VO 11 -2 -1 00 00 PE ti FL 10 0- 7- 0 00 RS ve OX 28 20 20 55 AC 13 17 17 41 FA IN 0 16 SD LY [address] MG UG TA BL ET IP 69 01 02 36 30 00 SO Ac RA 09 -2 -1 0. 00 PE ti T- 70 0- 7- 00 00 RS ve AL 17 20 20 0 55 BU 36 17 17 41 FA T 4 17 SD 0. LY 5- 3( DR 2. UG 5) MG /3 ML LE 55 01 01 7. 7 00 SO Ac VO 11 -0 -2 00 00 PE ti FL 10 4- 7- 0 00 RS ve OX 28 20 20 55 AC 13 17 17 27 FA IN 0 06 SD LY [address] MG UG TA BL ET FL 57 01 01 2. 3 00 SO Ac UC 23 -0 -2 00 00 PE ti ON 70 4- 7- 0 00 RS ve AZ 00 20 20 55 OL 51 17 17 27 FA E 1 11 SD [address] UG TA BL ET [place] 00 12 01 6. 5 00 SO Ac IT 78 -2 -2 00 00 PE ti HR 11 8- 0- 0 00 RS ve OM 49 20 20 55 YC 66 16 17 22 FA IN 8 09 SD LY [address] MG UG TA BL ET BE 67 12 01 30 10 00 SO Ac NZ 87 -2 -2 .0 00 PE ti ON 70 8- 0- 00 00 RS ve AT 10 20 20 55 AT 60 16 17 22 FA E 5 10 SD [address] UG CA PS UL E BIRCH 00 12 01 48 12 00 SO Ac DO 90 -2 -2 .0 00 PE ti GE 45 8- 0- [address] 05 20 20 55 32 16 17 22 FA 30 [address] TA UG BL ET SK 60 05 05 00 [...] CY e 50 MG TA BL ET CY 59 04 [address] 69 No Ac CL 74 -2 -0 .0 AZ 61 t ti OB 60 9- 8- 00 A 90 Av ve EN 17 20 20 PH 3 ai ZA 71 08 08 AR la [place] 0 MA bl IN CY e E [...] IN OP HE N 5- 32 5 00 05 [address] 69 No Ac 09 -0 -0 .0 AZ 62 t ti 50 2- 8- 00 A 76 Av ve 08 20 20 PH 0 ai 65 08 08 AR la 1 MA bl CY e DI 00 04 04 [address] 69 No Ac AZ 59 -0 -1 .0 AZ 57 t ti EP 15 1- 0- 00 A 57 Av ve AM 61 20 20 PH 5 ai 5 90 08 08 AR la 5 MA bl MG CY e TA BL ET [place] 68 04 04 [address] [...] 1- 0- 00 A 57 Av ve [place] 52 20 20 PH 7 ai AM 00 08 08 AR la 1 MA bl HB CY e R 40 MG TA BL ET Results Labs Lab Lab Date Result Refere Interp Status Commen Order Detail nces retati t Range on Cardiac enzymes (04-14-2017 13:00) Serum 2 = 0.7 0-4.0 complet or 017 U/L ed plasma 13:00 creatin e kinase MB (CK-M Serum < 0.5 0.0-3.6 complet or 017 ng/mL ed plasma 13:00 creatin e kinase MB measu Serum = 74 26-192 complet or 017 U/L ed plasma 13:00 creatin e kinase measure m Serum < 0.02 0.00-0. complet or 017 ng/mL 06 ed plasma 13:00 troponi n i.cardi ac measu Comprehensive metabolic panel (04-14-2017 13:00) Serum = 0.8 1.1-1.8 complet or 017 ed plasma 13:00 albumin /globul in mass ra Serum = 3.7 3.4-5.0 complet or 017 gm/dL ed plasma 13:00 albumin measure ment (mas Serum = 77 46-116 complet or 017 U/L ed plasma 13:00 alkalin e phospha tase myesha Serum = 0.5 0.2-1.0 complet or 017 mg/dL ed plasma 13:00 total bilirub in measure m Serum = 5 7-18 complet or 017 mg/dL ed plasma 13:00 urea nitroge n measure men Serum = 9.3 8.5-10. complet or 017 mg/dL 1 ed plasma 13:00 calcium measure ment (mas Serum = 99 98-107 complet or 017 mmoL/L ed plasma 13:00 chlorid e measure ment (mo Carbon = 30 21.0-32 complet dioxide 017 mmoL/L .0 ed 13:00 measure ment Serum = 0.8 0.55-1. complet or 017 mg/dL 02 ed plasma 13:00 creatin ine measure ment ( Estimat = 202 50-200 complet ion of 017 ML/MIN ed creatin 13:00 ine renal clearan ce Estimat = 78 59- complet ed 017 ML/MIN ed glomeru 13:00 lar filtrat ion rate (GF Comment: REFERENCE RANGE: >60 ML/MIN/1.73 SQUARE METERS Comment: If this patient is -Moroccan, then multiply the Comment: result by 1.210. Serum = 4.7 1.3-3.2 complet globuli 017 gm/dL ed n 13:00 measure ment (mass/v olume) Serum = 92 74-106 complet or 017 mg/dL ed plasma 13:00 glucose measure ment (mas Serum = 3.9 3.5-5.1 complet potassi 017 mmoL/L ed um 13:00 measure ment Serum = 135 136-145 complet sodium 017 mmoL/L ed measure 13:00 ment Serum = 15 15-37 complet or 017 U/L ed plasma 13:00 asparta te aminotr ansfera ALT = 24 12-78 complet (SGPT) 017 U/L ed ser/pete 13:00 s Protein = 8.4 6.4-8.2 complet total 017 gm/dL ed ser/pete 13:00 s CBC w auto diff (04-14-2017 13:00) Blood = 9.9 4.8-10. complet leukocy 017 K/MM3 8 ed dixon 13:00 count (number /volume ) Red = 5.13 4.2-5.4 complet blood 017 M/mm3 ed cell 13:00 count Blood = 353 142-424 complet platele 017 K/mm3 ed t count 13:00 Automat = 6.5 7.4-10. complet ed 017 fl 4 ed blood 13:00 platele t mean volume myesha Mclennan % = 4.6 % 1.7-9.3 complet 017 ed 13:00 Absolut = 0.5 0.1-1.0 complet e 017 K/mm3 ed monocyt 13:00 e count Automat = 90.3 82.2-97 complet ed 017 fl .8 ed erythro 13:00 cyte mean corpusc ular v Automat = 32.8 31.8-35 complet ed 017 g/dl .4 ed erythro 13:00 cyte mean corpusc ular h Mean = 29.6 27-31.2 complet corpusc 017 pg ed ular 13:00 hemoglo bin (MCH) determ Lymphoc = 21.7 10-50.0 complet yte 017 % ed count, 13:00 blood, automat ed Absolut = 2.1 0.7-4.5 complet e 017 K/mm3 ed lymphoc 13:00 yte count Blood = 15.3 12.2-16 complet hemoglo 017 g/dL .2 ed bin 13:00 measure ment (mass/v olum Blood = 46.3 37.0-47 complet hematoc 017 % .0 ed rit 13:00 (volume fractio n) Granulo = 72.1 37.0-80 complet cyte 017 % .0 ed percent 13:00 age Automat = 1.0 % 0.1-12. complet ed 017 0 ed blood 13:00 eosinop hils/10 0 leukocy t Automat = 0.1 0.0-0.4 complet ed 017 K/mm3 ed blood 13:00 eosinop hil count Baso % = 0.6 % 0.1-2.0 complet 017 ed 13:00 Automat = 0.1 0-0.2 complet ed 017 K/MM3 ed blood 13:00 basophi l count (count/ vo Automat = 14.2 11.5-17 complet ed 017 % .5 ed erythro 13:00 cyte distrib ution width Blood = 7.1 1.8-7.8 complet granulo 017 K/mm3 ed cytes 13:00 automat ed count (numb Bacteria identified in Blood by Culture (05-28-2015 [...] ED perform ed [Presen ce] in Blood 50341-4 (02-23-2013 11:19) WBC 7.7 4.60 - complet 013 K/uL 10.20 ed 11:19 RBC 5.13 4.04 - complet 013 M/uL 6.13 ed 11:19 HGB 13.2 12.20 - complet 013 g/dL 18.10 ed 11:19 HCT 41 % 37.70 - complet 013 53.70 ed 11:19 MCV 79.9 fL 80.0 - Below complet 013 97.0 low ed 11:19 normal MCH 09-17-2 25.7 pg 27.0 - Below complet 013 31.20 low ed 11:19 normal MCHC 02-23-2 32.2 31.80 - complet 013 g/dL 35.40 ed 11:19 RDW 17-2 15.7 % 11.60 - Above complet 013 14.80 high ed 11:19 normal PLT 02-23- 417 142 - complet 013 K/uL 424 ed 11:19 LY% 09-17-2 27.1 % 10.0 - complet 013 50.0 ed 11:19 MO% 09-17-2 6.4 % 0.0 - complet 013 12.0 ed 11:19 NE% 09-17-2 65.2 % 37.0 - complet 013 80.0 ed 11:19 EO% 0917-2 0.90 % 0.00 - complet 013 7.00 ed 11:19 BA% 17-2 0.40 % 0.00 - complet 013 2.50 ed 11:19 LY# -17-2 2.08 0.60 - complet 013 K/uL 3.40 ed 11:19 MO# 09-17-2 0.49 0.00 - complet 013 K/uL 0.90 ed 11:19 NE# 09-17-2 5.00 2.00 - complet 013 K/uL 6.90 ed 11:19 EO# 09-17-2 0.07 0.00 - complet 013 K/uL 0.70 ed 11:19 BA# 09-17-2 0.03 0.00 - complet 013 K/uL 0.20 ed 11:19 Manual NOT complet Diff 013 INDICAT ed 11:19 [place] [id number] (02-23-2013 11:19) SODIUM 02-23- 139 136 - complet 013 mmol/L 145 ed 11:19 POTASSI 4.2 3.50 - complet UM 013 mmol/L 5.10 ed 11:19 CHLORID 103 98 - complet E 013 mmol/L 107 ed 11:19 TOTAL 27 21 - 32 complet CO2 013 mmol/L ed 11:19 ANION 13 5 - 15 complet GAP 013 mmol/L ed 11:19 GLUCOSE 99 70 - complet 013 mg/dl 120 ed 11:19 BUN 7 mg/dl 7 - 18 complet 013 ed 11:19 CREATIN 1.0 0.60 - complet INE 013 mg/dl 1.30 ed 11:19 AGE 09 37 yrs complet 013 ed 11:19 GFR 60 complet 013 ml/min ed 11:19 CALCIUM 8.8 8.50 - complet 013 mg/dl 10.10 ed 11:19 TOTAL 0.3 0.20 - complet BALDOMERO 013 mg/dl 1.0 ed 11:19 AST 10 IU/L 15 - 37 Below complet (SGOT) 013 low ed 11:19 normal ALT 20 IU/L 12 - 78 complet (SGPT) 013 ed 11:19 ALK 74 IU/L 50 - complet PHOS 013 136 ed 11:19 TOTAL 7.6 6.40 - complet PROTEIN 013 g/dl 8.20 ed 11:19 ALBUMIN 3.5 3.40 - complet 013 g/dl 5.0 ed 11:19 GLOBULI 4.1 1.30 - Above complet N 013 g/dl 3.50 high ed 11:19 normal A/G 0.9 1.0 - Below complet RATIO 013 ratio 3.90 low ed 11:19 normal GLOMERU complet 013 LAR ed 11:19 FILTRAT ION RATE INTERPR ETATION Normal complet 013 Range: ed 11:19 60 Ml/min/ 1.73 sq meters If complet 013 patient ed 11:19 is Tameka n, multipl y GFR by 1.120. *GFR complet 013 only ed 11:19 applies to adults over the age 18. Comprehensive metabolic 1998 panel in Serum or [...] N 013 g/dl 3.50 ed 11:19 A/G 09-17-2 0.9 1.0 - Low complet RATIO 013 ratio 3.90 ed 11:19 GLOMERU complet 013 LAR ed 11:19 FILTRAT ION RATE INTERPR ETATION Normal complet 013 Range: ed 11:19 60 Ml/min/ 1.73 sq meters If complet 013 patient ed 11:19 is Tameka n, multipl y GFR by 1.120. *GFR complet 013 only ed 11:19 applies to adults over the age 18. [id number] (02-23-2013 11:19) Leukocy 7.7 4.60 - complet [...] complet Diff 013 INDICAT ed 11:19 ED Encounters Encounter Start End Date Code Location Performer Type Date [facility] [place] [address] 7 [facility] [address] [facility] [place] [address] [facility] [place] [facility] - 6 6 [facility] - 6 6 [facility] - 6 6 [facility] - 6 6 [facility] - 6 6 [facility] - 6 6 [facility] - 6 6 [facility] 6 6 [facility] 6 6 [facility] - 6 6 [facility] [place] [facility] - 5 5 [facility] - 5 5 [facility] - [facility] - 5 5 [facility] 5 5 [facility] - [facility] 4 [facility] - 4 4 [facility] - 3 3 [facility] - 8 8 [facility] - 8 8 [facility]
--- OUTSIDE RECORDS SUMMARY | 2017-04-14 15:03 | External Medical Summary Rpt | CCD ---
Author Author , ELAH LYNN Address Unknown Phone [email or web address] Care Team Providers Care Roll Tube Setter Name Role Phone JAH BECKER, Unavailable Unavailable RADHA BECKERANDA AWOSIAZALEA DIXIE, AWOSIKA Unavailable Unavailable DIXIE CHOE, CHOE Unavailable Unavailable [facility] Unavailable Unavailable [facility]PITAL, [facility] CINDY LONG, Unavailable Unavailable CINDY LONG [facility], Unavailable Unavailable [facility] Un[facility] Unavailable Unavailable [facility] DANIELS JAM, DANIELS JAM Unavailable Unavailable [facility], Unavailable Unavailable [facility] Unavailable Unavailable INC, [facility] Unavailable Unavailable HOSPITAL P, [facility] P MALKA APPIAH, Unavailable Unavailable MALKA APPIAH [facility], Unavailable Unavailable [facility] NURSE Unavailable Unavailable PRACTITIONER GR, [facility] NURSE PRACTITIONER [facility] [place] Unavailable Unavailable [facility], [facility] [place] [facility] Unavailable Unavailable [place] [facility], [facility] [place] [facility] Unavailable Unavailable [facility] Unavailable [facility]available [facility] [place] [facility] Unavailable [facility]available [facility] [...] MEDIC [facility] Unavailable Unavailable RADIOLOG, [facility] Unavailable [facility], [facility], Unavailable Unavailable [facility] Unavailable [facility] MARY CARMEN NEGRO, Unavailable Unavailable MARY CARMEN NEGRO Purpose Continuity of Care Document - 07-28-2007 through 2016 Problems Code Diagnosis DOS Provider Status [id number] MORBID 02-27-2017 [facility] OBESITY DUE TO EXCESS CALORIES J020 STREPTOCOCC 02-14-2017 [facility] PHARYNGITIS N644 MASTODYNIA 12-23-2016 [facility] [place] [facility] [id number] PAIN IN 11-25-2016 [facility] RIGHT [facility]INIC SHOULDER G4733 OBSTRUCTIVE 10-19-2016 [facility] ADULT MEDICAL PEDIATRIC EQUIPME M2550 PAIN IN 10-09-2016 S NURSE UNSPECIFIED PRACTITIONE JOINT R GR M797 FIBROMYALGI 10-09-2016 [place] NURSE A PRACTITIONE R GR Z6842 BODY MASS 10-09-2016 [place] NURSE INDEX BMI PRACTITIONE 45.0-49.9 R GR [...] H524 PRESBYOPIA 08-16-2016 [facility] R911 SOLITARY 07-05-2016 [facility] R918 OTHER 07-05-2016 [facility] [place] NONSPECIFIC RADIOLOGY ABNORMAL FINDING OF LUNG FIELD E7800 PURE 07-01-2016 [facility] UNSPECIFIED J449 CHRONIC 07-01-2016 [facility] OBSTRUCTIVE N EMERGENCY PULMONARY PHYS DISEASE UNS M940 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 [facility] AL JUNCTION N EMERGENCY SYNDROME PHYS TIETZE R0602 SHORTNESS 07-01-2016 [facility] OF BREATH [facility]INIC R0789 OTHER CHEST 07-01-2016 [facility] PAIN N EMERGENCY PHYS Q34505 OTHER LONG 07-01-2016 [place] [facility] DRUG THERAPY Z888 ALLERGY 07-01-2016 [place] [facility] RX MEDS & HOSPITAL BIOLOG SUBSTANC STS U15715 LATEX 07-01-2016 [place] [facility] R0989 OT SPEC SX 06-28-2016 [facility] & SIGNS CLINIC INVLV THE CIRC & RESP SYS R05 COUGH 06-05-2016 [facility] [place] [facility] R0689 OTHER 06-05-2016 [facility] ABNORMALITI [facility]INIC ES OF BREATHING R509 FEVER 06-05-2016 [facility] [place] UNSPECIFIED RADIOLOGY M5116 INTERVERTEB 05-13-2016 [facility] W/RADICULOP ATHY LUMB RGN M5136 OT 05-13-2016 [facility] R[facility] DIS[facility] HOSPI DEGEN LUMBAR REGION M545 LOW BACK 05-13-2016 [facility] H16687 PERSONAL 05-13-2016 [facility] DEPENDENCE F01806 PAIN IN 05-06-2016 [facility] R9431 ABNORMAL 05-06-2016 [facility] ELECTROCARD SERV IOGRAM FOUNDATION M4806 SPINAL 04-26-2016 [facility] STENOSIS SERV LUMBAR FOUNDATION REGION M5126 OT 04-26-2016 [facility] RAL DISC DISPLACEMEN T LUMBAR RGN M5416 RADICULOPAT 04-26-2016 [facility] REGION J3489 OTHER 04-25-2016 [facility] SPECIFIED [facility]IC DISORDERS NOSE AND NASAL SINUSES Z23 ENCOUNTER 03-21-2016 [facility] FOR [facility]INIC IMMUNIZATIO N M6281 MUSCLE 03-15-2016 S NURSE WEAKNESS PRACTITIONE GENERALIZED R GR R200 ANESTHESIA 03-15-2016 [facility] R32 UNSPECIFIED 03-15-2016 S NURSE URINARY PRACTITIONE INCONTINENC R GR E M5430 SCIATICA 03-08-2016 [facility] UNSPECIFIED SERV SIDE FOUNDATION M5440 LUMBAGO 03-08-2016 [facility] WITH SERV SCIATICA FOUNDATION UNSPECIFIED SIDE M5417 RADICULOPAT 02-20-2016 [facility] REGIONAL LUMBOSACRAL MEDIC REGION M2578 OSTEOPHYTE 02-16-2016 [facility] REG[facility]AL MEDIC M4807 SPINAL 02-16-2016 [facility] [place] STENOSIS REGIONAL LUMBOSACRAL RADIOLOG REGION M5117 INTERVERTEB 02-16-2016 [facility] [place] RAL DISC REGIONAL D/O MEDIC W/RADICULOP ATHY LS RGN M5127 OTH 02-16-2016 [facility] [place] INTER[facility]TE[facility] REGIONAL RAL DISC RADIOLOG DISPLACEMEN T LS REGION M7062 TROCHANTERI 02-07-2016 [facility] [place] C BURSITIS REGIONAL LEFT HIP MEDIC N03939 STIFFNESS 02-03-2016 [place] OF RIGHT FAMILY HIP NOT CHIROPRACTI ELSEWHERE CLASSIFIED [id number] STIFFNESS 02-03-2016 [place] OF LEFT HIP FAMILY NOT CHIROPRACTI ELSEWHERE CLASSIFIED M5137 OTH 02-03-2016 [place] INTERVERTEB FAMILY RAL DISC CHIROPRACTI DEGEN LUMBOSACRAL REGION M532X7 SPINAL 02-03-2016 [place] INSTABILITI FAMILY ES CHIROPRACTI LUMBOSACRAL REGION M5432 SCIATICA 02-03-2016 [place] LEFT SIDE FAMILY CHIROPRACTI M9903 SEGMENTAL & 02-03-2016 [place] 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 M9904 SEGMENTAL & 02-03-2016 [place] SOMATIC 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 SACRAL REGION W22576 PAIN IN 01-30-2016 LAB [facility] UNSPECIFIED [place] [facility]IP [facility]INGS L732 HIDRADENITI 12-14-2015 [facility] S SUPPURATIVA Z56979 PAIN IN 12-01-2015 [facility] [place] LEFT HIP RADIOLOGY M5186 OTHER 12-01-2015 [place] [facility] DIS[facility]OSPITAL DISORDER LUMBAR REGION D225 MELANOCYTIC 11-13-2015 [facility] NEVI OF TRUNK L578 OTH SKN 11-13-2015 [facility] CHANGES D/T CHRN EXPS TO NONIONIZING RAD L814 OTHER 11-13-2015 [facility] MELANIN HYPERPIGMEN TATION L821 OTHER 11-13-2015 [facility] SEBORRHEIC KERATOSIS L906 STRIAE 11-13-2015 [facility] ATROPHICAE X24335S UNSPECIFIED 10-19-2015 [facility] LEFT ANKLE INITIAL ENCOUNTER J069 ACUTE UPPER 09-05-2015 [facility] UNSPECIFIED Z95603 CHRONIC 07-19-2015 [facility] TENSION-TYP CLINIC E HEADACHE [...] [facility] UNSPECIFIED [facility]OS[facility] ANGINA INC PECT[place]IS 40761 CHEST PAIN 11-11-2014 [place] [facility] U[facility]PECIFIED SERV [facility]ATION 15652 HYPERTENSIV 11-07-2014 [facility] E HEART [facility] DISEASE INC UNSPEC W/HEART FAIL 42710 CORONARY 11-07-2014 [facility] ATHEROSCLER [facility] OSIS PAUMA INC CORONARY ARTERY 4168 OTHER 11-07-2014 [facility] CHRONIC [facility] PULMONARY INC HEART DISEASES 4280 CONGESTIVE 11-07-2014 [facility] HEART [facility] FAILURE INC UNSPECIFIED 4281 LEFT HEART 11-07-2014 [facility] FAILURE [facility] INC 33212 SHORTNESS 11-07-2014 [facility] OF BREATH [facility] INC 05934 OTHER CHEST 11-07-2014 [facility] PAIN [facility] INC 2189 LEIOMYOMA 09-02-2014 [facility] UNSPECIFIED 69907 MORBID 09-02-2014 [facility] OBESITY [facility] 5680 PERITONEAL 09-02-2014 [facility] ADHESIONS [facility] 6146 PELVIC 09-02-2014 [facility] PERITONEAL PHYSICIANS ADHESIONS, GROUP FEMALE 6212 HYPERTROPHY 09-02-2014 [facility] OF UTERUS PHYSICIANS GROUP 6243 HYPERTROPHY 09-02-2014 [facility] OF LABIA PHYSICIANS GROUP 6250 DYSPAREUNIA 09-02-2014 [facility] INC 6262 EXCESSIVE 09-02-2014 [facility] OR FREQUENT PHYSICIANS GROUP MENSTRUATIO N 6268 OTH D/O 09-02-2014 [facility] MENSTRUATIO ANESTH OF N&OTH ABN THE BLUE BLEED FE GNT TRACT V7283 OTHER 09-01-2014 [facility] SPECIFIED [facility] P VE EXAMINATION 51259 OBESITY, 08-09-2014 [facility] UNSPECIFIED CLINIC 6235 LEUKORRHEA [...] SCREENING 05-19-2014 [facility] FOR CLINIC UNSPECIFIED CONDITION 12142 OTHER 05-18-2014 [facility] MALAISE AND [place] FATIGUE HOLDINGS 70423 OTHER 05-17-2014 [facility] [place] NONSPECIFIC RADIOLOGY ABNORMAL FINDING OF LUNG FIELD 7867 ABNORMAL 05-10-2014 J[facility] MOODY CHEST SOUNDS CONSULTING SERV 7862 COUGH 04-27-2014 [facility] [place] [facility] 7906 OTHER 04-27-2014 [facility] ABNORMAL [place] BLOOD HOLDINGS CHEMISTRY 7962 ELEVATED BP 04-27-2014 [facility] READING [place] WITHOUT DX HOLDINGS HYPERTENSIO N 486 PNEUMONIA, 02-21-2014 CLARKE Kemp ORGANISM JHONNY PHILLIPS UNSPECIFIED PSC 90252 ESOPHAGEAL 02-21-2014 CLARKE Kemp REFLUX JHONNY PHILLIPS PSC 7804 DIZZINESS 02-21-2014 CLARKE HERNANDEZ MD GIDDINESS PSC 39995 HYPOXEMIA 02-21-2014 CLARKE BARRY MD PSC 6253 DYSMENORRHE 04-30-2013 [facility] V2540 UNSPECIFIED 04-30-2013 [facility] VE SURVEILLANC E 5959 UNSPECIFIED 03-15-2013 CLARKE Kemp CYSTITIS JHONNY PHILLIPS PSC 12744 DIARRHEA 03-15-2013 CLARKE BARRY MD PSC 72322 OTHER 02-23-2013 [place] DISEASES OF RADIOLOGY LUNG NOT ASSOCIAT ELSEWHERE CLASSIFIED 89615 ABDOMINAL 02-23-2013 [facility] PAIN, HOSPITAL UNSPECIFIED SITE 2449 UNSPECIFIED 02-18-2013 [facility] HYPOTHYROID ISM V700 ROUTINE 02-18-2013 [facility] MEDICAL EXAM@HEALTH CARE FACL 92452 OVERWEIGHT 02-17-2013 CLARKE BARRY MD PSC V7231 ROUTINE 02-03-2013 [facility] AL EXAMINATION V7381 SPECIAL 02-03-2013 [facility] EXAMINATION HUMAN PAPILVIRUS 3671 MYOPIA 01-20-2013 [facility] DIXIE 40258 UNSPECIFIED 01-20-2013 AWOSIKA DIXIE ASTIGMATISM 7245 UNSPECIFIED 11-11-2007 [facility] 03322 SPASM OF 10-23-2007 [facility] MUSCLE MEDICINE ASSOC [facility] 7218 OTHER 10-08-2007 [place] ALLIED RADIOLOGY 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 SPINE PSC 38429 HYPERVENTIL 07-28-2007 [facility] ATION HOSP 50590 OTHER 07-28-2007 [facility] DYSPNEA AND HOSP RESPIRATORY ABNORMALITI ES Allergies, [...] 91 17 17 32 FA 4 42 FL [address] UG TA BL ET AM 66 09 10 20 10 00 SO Ac OX 68 -0 -0 .0 00 PE ti -C 51 8- 6- 00 00 RS ve LA 00 20 20 57 V 10 17 17 21 FA 87 0 46 FL 5- LY [address] MG UG TA BL ET AT 00 09 10 30 30 00 SO Ac OR 37 -1 -0 .0 00 PE ti VA 83 1- 6- [address] 95 20 20 57 AT 20 17 17 22 FA IN [address] MG UG TA BL ET SY 00 09 10 10 30 00 SO Ac MB 18 -1 -0 .1 00 PE ti IC 60 1- 6- 99 00 RS ve OR 37 20 20 57 T 02 17 17 23 FA 16 0 00 FL 0- LY 4. 5 DR SAM UG G IN LÓPEZ LE R CA 68 09 09 60 30 00 SO Ac RV 38 -0 -2 .0 00 PE ti ED 20 1- 9- 00 00 RS ve IL 09 20 20 56 OL 30 17 17 96 FA 5 27 FL 6. LY 25 DR MG UG TA BL ET HY 16 09 09 [address] 72 -0 -2 .0 00 PE ti OC 90 1- 9- 00 00 RS ve HL 18 20 20 56 OR 31 17 17 96 FA OT 7 26 FL HI LY AZ ID DR Chetan UG 25 MG TA B VE 00 09 09 18 20 00 SO Ac NT 17 -0 -2 .0 00 PE ti OL 30 1- 9- 00 00 RS ve IN 68 20 20 56 22 17 17 96 FA HF 0 25 FL A LY 90 DR [place] IN LÓPEZ LE R DI 61 09 09 60 30 00 SO Ac CL 44 -0 -2 .0 00 PE ti OF 20 1- 9- 00 00 RS ve EN 10 20 20 56 AC 31 17 17 96 FA 0 24 FL SO LY D DR DR OLVERA 75 MG TA B LO 65 09 09 30 30 00 SO Ac SA 86 -0 -2 .0 00 PE ti RT 20 1- 9- 00 00 RS ve AN 20 20 20 56 29 17 17 96 FA PO 9 23 FL TA LY SS IU DR Carey OLVERA [...] 17 17 96 FA PO 9 23 FL TA LY SS IU DR Carey OLVERA 50 MG TA B DI 61 08 09 60 30 00 SO Ac CL 44 -0 -0 .0 00 PE ti OF 20 4- 1- 00 00 RS ve EN 10 20 20 56 AC 31 17 17 96 FA 0 24 FL SO LY D DR DR OLVERA 75 MG TA B VE 00 08 09 18 20 00 SO Ac NT 17 -0 -0 .0 00 PE ti OL 30 4- 1- 00 00 RS ve IN 68 20 20 56 22 17 17 96 FA HF 0 25 FL A LY 90 DR [place] IN LÓPEZ LE R HY 16 08 09 [address] 72 -0 -0 .0 00 PE ti OC 90 4- 1- 00 00 RS ve HL 18 20 20 56 OR 31 17 17 96 FA OT 7 26 FL HI LY AZ ID DR Chetan OLVERA 25 MG TA B CA 68 08 09 60 30 00 SO Ac RV 38 -0 -0 .0 00 PE ti ED 20 4- 1- 00 00 RS ve IL 09 20 20 56 OL 30 17 17 96 FA 5 27 FL 6. LY 25 DR MG UG TA BL ET SY 00 08 09 10 30 00 SO Ac MB 18 -0 -0 .1 00 PE ti IC 60 4- 1- 99 00 RS ve OR 37 20 20 56 T 02 17 17 20 FA 16 0 71 FL 0- LY 4. 5 DR [place] IN [...] 17 17 23 FA PO 0 27 FL TA LY SS IU DR Carey UG 25 MG TA B AT 00 06 07 30 30 00 SO Ac OR 37 -0 -0 .0 00 PE ti VA 83 8- 7- [address] 95 20 20 54 AT 20 17 17 23 FA IN 5 [address] MG UG TA BL ET SY 00 06 07 10 30 00 SO Ac MB 18 -0 -0 .1 00 PE ti IC 60 8- 7 99 00 RS ve OR 37 20 20 56 T 02 17 17 20 FA 16 0 71 FL 0- LY 4. 5 DR [place] IN LÓPEZ LE R HY 16 06 07 [address] 72 -0 -0 .0 00 PE ti OC 90 8- 7- 00 00 RS ve HL 18 20 20 54 OR 31 17 17 23 FA OT 7 21 FL HI LY AZ ID DR Chetan OLVERA 25 MG TA B VE 00 06 07 18 20 00 SO Ac NT 17 -1 -0 .0 00 PE ti OL 30 3- 7- 00 00 RS ve IN 68 20 20 56 22 17 17 21 FA HF 0 19 FL A LY 90 DR [place] IN LÓPEZ [...] 17 17 19 FA MG 6 92 FL LY TA BL DR ET UG SY 00 04 05 10 30 00 SO Ac MB 18 -2 -1 .1 00 PE ti IC 60 1- 9- 99 00 RS ve OR 37 20 20 56 T 02 17 17 20 FA 16 0 71 FL 0- LY 4. 5 DR SMITH G IN LÓPEZ LE R VE 00 04 05 18 20 00 SO Ac NT 17 -2 -1 .0 00 PE ti OL 30 4- 9- 00 00 RS ve IN 68 20 20 56 22 17 17 21 FA HF 0 19 FL A LY 90 DR SMITH G IN LÓPEZ LE R DU 57 04 05 30 30 00 SO Ac LO 23 -2 -1 .0 00 PE ti XE 70 4- 9- 00 00 RS ve TI 01 20 20 56 NE 89 17 17 21 FA 0 76 FL HC LY L DR DR OLVERA 30 MG CA P CH 00 03 04 53 28 00 SO Ac AN 06 -2 -2 .0 00 PE ti TI 90 3- 1- 00 00 RS ve X [address] 10 17 17 96 FA AR 3 08 FL TI LY NG DR TORO UG NT H [place] X SY 00 03 03 10 30 00 SO Ac MB 18 -0 -3 .1 00 PE ti IC 60 3- 99 00 RS ve OR 37 20 20 54 T 02 17 17 23 FA 16 0 28 FL 0- LY 4. 5 DR SMITH G IN LÓPEZ LE R LO 65 02 03 30 30 00 SO Ac SA 86 -2 -2 .0 00 PE ti RT 20 4- 4- 00 00 RS ve AN 20 20 20 54 19 17 17 23 FA PO 0 27 FL TA LY SS IU DR M UG 25 MG TA B CA 68 02 03 60 30 00 SO Ac RV 38 -2 -2 .0 00 PE ti ED 20 4- 4- 00 00 RS ve IL 09 20 20 54 OL 30 17 17 23 FA 5 23 FL 6. LY 25 DR MG UG TA BL ET HY 16 02 03 [address] 72 -2 -2 .0 00 PE ti OC 90 4- 4- 00 00 RS ve HL 18 20 20 54 OR 31 17 17 23 FA OT 7 21 FL HI LY AZ ID DR Chetan UG 25 MG TA B AT 00 02 03 30 30 00 SO Ac OR 37 -2 -2 .0 00 PE ti VA 83 4- 4- [address] 95 20 20 54 AT 20 17 17 23 FA IN [address] MG UG TA BL ET DI 61 02 03 60 30 00 SO Ac CL 44 -2 -2 .0 00 PE ti OF 20 4- 4- 00 00 RS ve EN 10 20 20 54 AC 31 17 17 23 FA 0 26 FL SO LY D DR DR UG 75 MG TA B VE 00 02 03 18 20 00 SO Ac NT 17 -2 -2 .0 00 PE ti OL 30 4- 4- 00 00 RS ve IN 68 20 20 54 22 17 17 23 FA HF 0 19 FL A LY 90 DR MC UG G IN LÓPEZ LE R MN 00 01 02 10 5 00 SO Ac ED 05 -2 -1 .0 00 PE ti NI 40 0- 7- 00 00 RS ve SO 01 20 20 55 NE 82 17 17 41 FA 9 15 FL [address] UG TA BL ET LE 55 01 02 7. 7 00 SO Ac VO 11 -2 -1 00 00 PE ti FL 10 0- 7- 0 00 RS ve OX 28 20 20 55 AC 13 17 17 41 FA IN 0 16 FL LY [address] MG UG TA BL ET IP 69 01 02 36 30 00 SO Ac RA 09 -2 -1 0. 00 PE ti T- 70 0- 7- 00 00 RS ve AL 17 20 20 0 55 BU 36 17 17 41 FA T 4 17 FL 0. LY 5- 3( DR 2. UG 5) MG /3 ML LE 55 01 01 7. 7 00 SO Ac VO 11 -0 -2 00 00 PE ti FL 10 4- 7- 0 00 RS ve OX 28 20 20 55 AC 13 17 17 27 FA IN 0 06 FL LY [address] MG UG TA BL ET FL 57 01 01 2. 3 00 SO Ac UC 23 -0 -2 00 00 PE ti ON 70 4- 7- 0 00 RS ve AZ 00 20 20 55 OL 51 17 17 27 FA E 1 11 FL [address] UG TA BL ET AZ 00 12 01 6. 5 00 SO Ac IT 78 -2 -2 00 00 PE ti HR 11 8- 0- 0 00 RS ve OM 49 20 20 55 YC 66 16 17 22 FA IN 8 09 FL LY [address] MG UG TA BL ET BE 67 12 01 30 10 00 SO Ac NZ 87 -2 -2 .0 00 PE ti ON 70 8- 0- 00 00 RS ve AT 10 20 20 55 AT 60 16 17 22 FA E 5 10 FL [address] UG CA PS UL E BIRCH 00 12 01 48 12 00 SO Ac DO 90 -2 -2 .0 00 PE ti GE 45 8- 0- [address] 05 20 20 55 32 16 17 22 FA 30 [address] TA UG BL ET [...] ai ZA 71 08 08 AR la MN 0 MA bl IN CY e E [...] bl MG CY e TA BL ET MN 68 04 [address] [...] 1- 0- 00 A 57 Av ve MN 52 20 20 PH 7 ai AM [...] SQUARE METERS Comment: If this patient is -[place], then multiply the Comment: result by 1.210. [...] blood 13:00 platele t mean volume myesha Summers % = 4.6 % 1.7-9.3 complet 017 [...] ED perform ed [Presen ce] in Blood 48410-5 (02-23-2013 11:19) WBC 7.7 4.60 - complet [...] complet Diff 013 INDICAT ed 11:19 ED 81010-8 (02-23-2013 11:19) SODIUM 02-23- 139 136 - [...] applies to adults over the age 18. 55250-0 (02-23-2013 11:19) Leukocy 7.7 4.60 - complet [...] End Date Code Location Performer Type Date [facility] [place] [address] [facility] [address] [facility] [place] [address] [facility] [place] - 7 7 [facility] [place] - 7 7 [facility] [place] - 6 6 [facility] - 6 6 [facility] - 6 6 [facility] - 6 6 [facility] - 6 6 [facility] - 6 6 [facility] - 6 6 [facility] - 6 6 [facility] 6 [facility] - 6 6 [facility] [place] - 6 6 [facility] - 5 5 [facility] - 5 5 [facility] - 5 5 [facility] - 5 5 [facility] - 5 5 [facility] 5 5 [facility] [place] - 4 4 [facility] - 4 4 [facility] - 3 3 [facility] - 8 8 [facility] - [address] [facility]
--- OUTSIDE RECORDS SUMMARY | 2017-04-14 15:08 | External Medical Summary Rpt | CCD ---
Author Author , LEAH LYNN Address Unknown Phone Care Team Providers Care Systems Architecture Analyst Name Role Phone JAH BECKER, Unavailable Unavailable RADHA BECKERANDA AWOSIKA DIXIE, AWOSIKA Unavailable Unavailable DIXIE CHOE, CHOE Unavailable Unavailable [facility] Unavailable Unavailable [facility], [facility] CINDY LONG, Unavailable Unavailable CINDY LONG [facility], Unavailable Unavailable [facility] Unavailable [facility]available [facility]available Unavailable [facility] JEREMIAH CARSON, JEREMIAH CARSON Unavailable Unavailable [facility], Unavailable Unavailable [facility] Unavailable Unavailable INC, [facility] Unavailable Unavailable [facility]PITAL P, [facility] MALKA APPIAH, Unavailable Unavailable MALKA APPIAH [facility], Unavailable Unavailable [facility] NURSE Unavailable Unavailable PRACTITIONER GR, [facility] NURSE PRACTITIONER [facility] Unavailable Unavailable [facility], [facility] Unavailable Unavailable [facility], [facility] Unavailable Unavailable [facility] Unavailable Unavailable [facility], [facility] Unavailable Unavailable [facility], [facility] Unavailable [...] [facility] Unavailable Unavailable [facility], [facility], [facility]available [facility]available [facility] Unavailable [facility] MARY CARMEN NEGRO, Unavailable Unavailable MARY CARMEN NEGRO Purpose Continuity of Care Document - 07-28-2007 through 2016 Problems Code Diagnosis DOS Provider Status [id number] MORBID 02-27-2017 [facility] OBESITY DUE TO EXCESS CALORIES J020 STREPTOCOCC 02-14-2017 [facility] PHARYNGITIS N644 MASTODYNIA 12-23-2016 [facility] [place] [facility] C52009 PAIN IN 11-25-2016 [facility] RIGHT [facility]INIC SHOULDER G4733 OBSTRUCTIVE 10-19-2016 [facility] ADULT MEDICAL PEDIATRIC EQUIPME M2550 PAIN IN 10-09-2016 S NURSE UNSPECIFIED PRACTITIONE JOINT R GR M797 FIBROMYALGI 10-09-2016 [facility] A PRACTITIONE R GR Z6842 BODY [...] H524 PRESBYOPIA 08-16-2016 [facility] R911 SOLITARY 07-05-2016 PAX PULMONARY [facility] R918 OTHER 07-05-2016 [facility] [place] NONSPECIFIC RADI[facility] ABNORMAL FINDING OF LUNG FIELD E7800 PURE 07-01-2016 [facility] UNSPECIFIED J449 CHRONIC 07-01-2016 [facility] PULMONARY PHYS DISEASE UNS M940 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 [facility] JUNCTION N EMERGENCY SYNDROME PHYS TIETZE R0602 SHORTNESS 07-01-2016 [facility] OF BREATH CLINIC R0789 OTHER CHEST 07-01-2016 [facility] PAIN N EMERGENCY PHYS [id number] OTHER LONG 07-01-2016 [facility] DRUG THERAPY Z888 ALLERGY 07-01-2016 [facility] & [facility] BIOLOG [facility] STS U77386 LATEX 07-01-2016 [facility] R0989 OT SPEC SX 06-28-2016 [facility] SIGNS CLINIC INVLV THE CIRC & RESP SYS R05 COUGH 06-05-2016 [facility] [place] [facility] R0689 OTHER 06-05-2016 [facility] ABNORMALITI [facility]IC ES OF BREATHING R509 FEVER 06-05-2016 [facility] [place] UNSPECIFIED RADIOLOGY M5116 INTERVERTEB 05-13-2016 [facility] W/RADICULOP ATHY LUMB RGN M5136 OT 05-13-2016 [facility] DIS[facility] HOSPI DEGEN LUMBAR REGION M545 LOW BACK 05-13-2016 [facility] Q34275 PERSONAL 05-13-2016 [facility] DEPEND[facility] T61138 PAIN IN 05-06-[address] [facility] R9431 ABNORMAL 05-06-2016 [facility] ELECTROCARD SERV IOGRAM FOUNDATION M4806 SPINAL 04-26-2016 [facility] STENOSIS SERV LUMBAR FOUNDATION REGION M5126 OT 04-26-2016 [facility] RAL DISC DISPLACEMEN T LUMBAR RGN M5416 RADICULOPAT 04-26-2016 [facility] REGION J3489 OTHER 04-25-2016 [facility] SPECIFIED [facility] DISORDERS NOSE AND NASAL SINUSES Z23 ENCOUNTER 03-21-2016 [facility] FOR [facility]INIC IMMUNIZATIO N M6281 MUSCLE 03-15-2016 S NURSE WEAKNESS PRACTITIONE GENERALIZED R GR R200 ANESTHESIA 03-15-2016 [facility] R32 UNSPECIFIED 03-15-2016 S NURSE URINARY PRACTITIONE INCONTINENC R GR E M5430 SCIATICA 03-08-2016 [facility] UNSPECIFIED SERV SIDE FOUNDATION M5440 LUMBAGO 03-08-2016 [facility] WITH SERV SCIATICA FOUNDATION UNSPECIFIED SIDE M5417 RADICULOPAT 02-20-2016 [facility] REG[facility] LUMBOSACRAL MEDIC REGION M2578 OSTEOPHYTE 02-16-2016 [facility] MEDIC M4807 SPINAL 02-16-2016 [facility] STEN[facility]IS REGIONAL LUMBOSACRAL RADIOLOG REGION M5117 INTERVERTEB 02-16-2016 [facility] RAL DISC REGIONAL D/O MEDIC W/RADICULOP ATHY LS RGN M5127 OTH 02-16-2016 [facility] INTERVERTEB REGIONAL RAL DISC RADIOLOG DISPLACEMEN T LS REGION M7062 TROCHANTERI 02-07-2016 [facility] C BURSITIS REGIONAL LEFT HIP MEDIC Z48835 STIFFNESS 02-03-2016 [facility] RIGHT FAMILY HIP NOT [facility]IR[facility]I ELSEWHERE CLASSIFIED Q96511 STIFFNESS 02-03-2016 [facility] OF LEFT HIP FAMILY NOT CHIROPRACTI ELSEWHERE CLASSIFIED M5137 OTH 02-03-2016 [facility] INTERVERTEB FAMILY RAL DISC CHIROPRACTI DEGEN LUMBOSACRAL REGION M532X7 SPINAL 02-03-2016 [facility] INSTABILITI FAMILY ES CHIROPRACTI LUMBOSACRAL REGION M5432 SCIATICA 02-03-2016 [facility] LEFT SIDE FAMILY [facility]IR[facility]I M9903 SEGMENTAL & 02-03-2016 [facility] 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 M9904 SEGMENTAL & 02-03-2016 [facility] SOMATIC 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 SACRAL REGION T96114 PAIN IN 01-30-2016 [facility] UNSPECIFIED [place] [facility] L732 HIDRADENITI 12-14-2015 [facility] S SUPPURATIVA Q22622 PAIN IN 12-01-2015 [facility] [place] LEFT HIP RAD[facility]OLOG[facility] M5186 OTHER 12-01-2015 [facility] DISORDER LUMBAR REGION D225 MELANOCYTIC 11-13-2015 [facility] NEVI OF TRUNK L578 OTH SKN 11-13-2015 [facility] CHANGES D/T CHRN EXPS TO NONIONIZING RAD L814 OTHER 11-13-2015 [facility] MELANIN HYPERPIGMEN TATION L821 OTHER 11-13-2015 [facility] SEBORRHEIC KERATOSIS L906 STRIAE 11-13-2015 [facility] ATROPHICAE Y60487P UNSPECIFIED 10-19-2015 [facility] LEFT ANKLE INITIAL ENCOUNTER J069 ACUTE UPPER 09-05-2015 [facility] RESPIRATORY INFECTION UNSPECIFIED J89001 CHRONIC 07-19-2015 [facility] TENSION-TYP CLINIC E HEADACHE [...] [facility] UNSPECIFIED [facility] ANGINA INC PECTORIS 66519 CHEST PAIN 11-11-2014 [place] [facility]PEC[facility] SERV [facility] 11415 HYPERTENSIV 11-07-2014 [facility] E HEART [facility] DISEASE INC UNSPEC W/HEART FAIL 16351 CORONARY 11-07-2014 [facility] ATHEROSCLER [facility] OSIS LYTTON INC CORONARY ARTERY 4168 OTHER 11-07-2014 [facility] CHRONIC [facility] PULMONARY INC HEART DISEASES 4280 CONGESTIVE 11-07-2014 [facility] HEART [facility] FAILURE INC UNSPECIFIED 4281 LEFT HEART 11-07-2014 [facility] FAILURE [facility] INC 19286 SHORTNESS 11-07-2014 [facility] OF BREATH [facility] INC 65495 OTHER CHEST 11-07-2014 [facility] PAIN [facility] 2189 LEIOMYOMA 09-02-2014 [facility] UNSPECIFIED 34486 MORBID 09-02-2014 [facility] OBESITY [facility] 5680 PERITONEAL 09-02-2014 [facility] ADHESIONS [facility] 6146 PELVIC 09-02-2014 [facility] PERITONEAL PHYSICIANS ADHESIONS, GROUP FEMALE 6212 HYPERTROPHY 09-02-2014 [facility] OF UTERUS [facility] GROUP 6243 HYPERTROPHY 09-02-2014 [facility] OF LABIA PHYSIC[facility]ANS GROUP 6250 DYSPAREUNIA 09-02-2014 [facility] 6262 EXCESSIVE 09-02-2014 [facility] OR FREQUENT PHYSICIANS GROUP MENSTRUATIO N 6268 OTH D/O 09-02-2014 [facility] MENSTRUATIO ANESTH OF N&OTH ABN THE BLUE BLEED FE GNT TRACT V7283 OTHER 09-01-2014 [facility] SPECIFIED [facility] P VE EXAMINATION 76695 OBESITY, 08-09-2014 [facility] UNSPECIFIED CLINIC 6235 LEUKORRHEA [...] SCREENING 05-19-2014 [facility] FOR CLINIC UNSPECIFIED CONDITION 81531 OTHER 05-18-2014 [facility] MALAISE AND [place] FATIGUE [facility]INGS 74200 OTHER 05-17-2014 [facility] [place] NONSPECIFIC [facility] ABNORMAL FINDING OF LUNG FIELD 7867 ABNORMAL 05-10-2014 [facility] HEIDY CHEST SOUNDS CONSULTING SERV 7862 COUGH 04-27-2014 [facility] [place] [facility] 7906 OTHER 04-27-2014 [facility] ABNORMAL [place] BLOOD [facility] CHEMISTRY 7962 ELEVATED BP 04-27-2014 [facility] READING [place] WITHOUT DX HOLDINGS HYPERTENSIO N 486 PNEUMONIA, 02-21-2014 CLARKE Kemp ORGANISM JHONNY PHILLIPS UNSPECIFIED PSC 62820 ESOPHAGEAL 02-21-2014 CLARKE Kemp REFLUX JHONNY PHILLIPS PSC 7804 DIZZINESS 02-21-2014 CLARKE HERNANDEZ MD GIDDINESS PSC 35087 HYPOXEMIA 02-21-2014 CLARKE BARRY MD PSC 6253 DYSMENORRHE 04-30-2013 [facility] V2540 UNSPECIFIED 04-30-2013 [facility]IMARY [facility] CARE CENTER VE SURVEILLANC E 5959 UNSPECIFIED 03-15-2013 CLARKE Kemp CYSTITIS JHONNY PHILLIPS PSC 19390 DIARRHEA 03-15-2013 CLARKE BARRY MD PSC 55335 OTHER 02-23-2013 [facility] DISEASES OF RADIOLOGY LUNG NOT ASSOCIAT ELSEWHERE CLASSIFIED 80229 ABDOMINAL 02-23-2013 [facility] PAIN, HOSPITAL UNSPECIFIED SITE 2449 UNSPECIFIED 02-18-2013 [facility] HYPOTHYROID ISM V700 ROUTINE 02-18-2013 [facility] MEDICAL EXAM@HEALTH CARE FACL 00113 OVERWEIGHT 02-17-2013 CLARKE BARRY MD PSC V7231 ROUTINE 02-03-2013 [facility] AL EXAMINATION V7381 SPECIAL 02-03-2013 [facility] EXAMINATION HUMAN PAPILVIRUS 3671 MYOPIA 01-20-2013 [facility] DIXIE 39747 UNSPECIFIED 01-20-2013 [facility] DIXIE ASTIGMATISM 7245 UNSPECIFIED 11-11-2007 [facility] 93614 SPASM OF 10-23-2007 [facility] MUSCLE MEDICINE [facility]OC [facility] 7218 OTHER 10-08-2007 [facility] ALLIED RADIOLOGY 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 SPINE PSC 44099 HYPERVENTIL 07-28-2007 [facility] ATION HOSP 91728 OTHER 07-28-2007 [facility] DYSPNEA AND HOSP RESPIRATORY ABNORMALITI ES [...] 91 17 17 32 FA 4 42 DC [address] WADE TA BL ET AM 66 09 10 20 10 00 SO Ac OX 68 -0 -0 .0 00 PE ti -C 51 8- 6- 00 00 RS ve LA 00 20 20 57 V 10 17 17 21 FA 87 0 46 DC 5- LY [address] MG UG TA BL ET AT 00 09 10 30 30 00 SO Ac OR 37 -1 -0 .0 00 PE ti VA 83 1- 6- [address] 95 20 20 57 AT 20 17 17 22 FA IN [address] MG UG TA BL ET SY 00 09 10 10 30 00 SO Ac MB 18 -1 -0 .1 00 PE ti IC 60 1- 6- 99 00 RS ve OR 37 20 20 57 T 02 17 17 23 FA 16 0 00 DC 0- LY 4. 5 DR SMITH G IN [place] R CA 68 09 09 60 30 00 SO Ac RV 38 -0 -2 .0 00 PE ti ED 20 1- 9- 00 00 RS ve IL 09 20 20 56 OL 30 17 17 96 FA 5 27 DC 6[address] LY 25 DR MG UG TA BL ET HY 16 09 09 [address] 72 -0 -2 .0 00 PE ti OC 90 1- 9- 00 00 RS ve HL 18 20 20 56 OR 31 17 17 96 FA OT 7 26 DC HI LY AZ ID DR Chetan OLVERA 25 MG TA B VE 00 09 09 18 20 00 SO Ac NT 17 -0 -2 .0 00 PE ti OL 30 1- 9- 00 00 RS ve IN 68 20 20 56 22 17 17 96 FA HF 0 25 DC A LY 90 DR [place] IN [place] LE R DI 61 09 09 60 30 00 SO Ac CL 44 -0 -2 .0 00 PE ti OF 20 1- 9- 00 00 RS ve EN 10 20 20 56 AC 31 17 17 96 FA 0 24 DC SO LY D DR DR OLVERA 75 MG TA B LO 65 09 09 30 30 00 SO Ac SA 86 -0 -2 .0 00 PE ti RT 20 1- 9- 00 00 RS ve AN 20 20 20 56 29 17 17 96 FA PO 9 23 DC TA LY SS IU DR Carey OLVERA [...] 17 17 20 FA 16 0 71 DC 0- LY 4. 5 DR WH[place]FIELD IN [place] LE R LO 65 08 09 30 30 00 SO Ac SA 86 -0 -0 .0 00 PE ti RT 20 4- 1- 00 00 RS ve AN 20 20 20 56 29 17 17 96 FA PO 9 23 DC TA LY SS IU DR Carey OLVERA 50 MG TA B DI 61 08 09 60 30 00 SO Ac CL 44 -0 -0 .0 00 PE ti OF 20 4- 1- 00 00 RS ve EN 10 20 20 56 AC 31 17 17 96 FA 0 24 DC SO LY D DR DR OLVERA 75 MG TA B VE 00 08 09 18 20 00 SO Ac NT 17 -0 -0 .0 00 PE ti OL 30 4- 1- 00 00 RS ve IN 68 20 20 56 22 17 17 96 FA HF 0 25 DC A LY 90 DR [place] IN [place] LE R HY 16 08 09 [address] 72 -0 -0 .0 00 PE ti OC 90 4- 1- 00 00 RS ve HL 18 20 20 56 OR 31 17 17 96 FA OT 7 26 DC HI LY AZ ID DR Chetan OLVERA 25 MG TA B CA 68 08 09 60 30 00 SO Ac RV 38 -0 -0 .0 00 PE ti ED 20 4- 1- 00 00 RS ve IL 09 20 20 56 OL 30 17 17 96 FA 5 27 DC 6. LY 25 DR MG UG TA [...] 17 17 23 FA PO 0 27 DC TA LY SS IU DR Carey UG 25 MG TA B AT 00 06 07 30 30 00 SO Ac OR 37 -0 -0 .0 00 PE ti VA 83 8- 7- [address] 95 20 20 54 AT 20 17 17 23 FA IN 5 [address] MG UG TA BL ET SY 00 06 07 10 30 00 SO Ac MB 18 -0 -0 .1 00 PE ti IC 60 8- 7- 99 00 RS ve OR 37 20 20 56 T 02 17 17 20 FA 16 0 71 DC 0- LY 4. 5 DR [place] IN [place] LE R HY 16 06 07 [address] 72 -0 -0 .0 00 PE ti OC 90 8- 7- 00 00 RS ve HL 18 20 20 54 OR 31 17 17 23 FA OT 7 21 DC HI LY AZ ID DR Chetan OLVERA 25 MG TA B VE 00 06 07 18 20 00 SO Ac NT 17 -1 -0 .0 00 PE ti OL 30 3- 7- 00 00 RS ve IN 68 20 20 56 22 17 17 21 FA HF 0 19 DC A LY 90 DR [place] IN [place] R GA 53 06 06 27 30 00 WA Ac BA [...] PS 93 UL E DU 57 04 05 30 30 00 SO Ac LO 23 -2 -1 .0 00 PE ti XE 70 4- 9- 00 00 RS ve TI 01 20 20 56 NE 89 17 17 21 FA 0 76 DC HC LY L DR DR OLVERA 30 MG CA P CH 00 04 05 60 30 00 SO Ac AN 06 -2 -1 .0 00 PE ti TI 90 0- 9- 00 00 RS ve X 46 20 20 56 1 95 17 17 19 FA MG 6 92 DC LY TA BL DR ET UG SY 00 04 05 10 30 00 SO Ac MB 18 -2 -1 .1 00 PE ti IC 60 1- 9- 99 00 RS ve OR 37 20 20 56 T 02 17 17 20 FA 16 0 71 DC 0- LY 4. 5 DR SMITH G IN [place] LE R VE 00 04 05 18 20 00 SO Ac NT 17 -2 -1 .0 00 PE ti OL 30 4- 9- 00 00 RS ve IN 68 20 20 56 22 17 17 21 FA HF 0 19 DC A LY 90 DR SMITH G IN [place] LE R CH 00 03 04 53 28 00 SO Ac AN 06 -2 -2 .0 00 PE ti TI 90 3- 1- 00 00 RS ve X [address] 10 17 17 96 FA AR 3 08 DC TI LY NG DR MUNA OLVERA NT H [place] X SY 00 03 03 10 30 00 SO Ac MB 18 -0 -3 .1 00 PE ti IC 60 3- 1- 99 00 RS ve OR 37 20 20 54 T 02 17 17 23 FA 16 0 28 DC 0- LY 4. 5 DR [place] IN [place] LE R LO 65 02 03 30 30 00 SO Ac SA 86 -2 -2 .0 00 PE ti RT 20 4- 4- 00 00 RS ve AN 20 20 20 54 19 17 17 23 FA PO 0 27 DC TA LY SS IU DR Carey OLVERA 25 MG TA B CA 68 02 03 60 30 00 SO Ac RV 38 -2 -2 .0 00 PE ti ED 20 4- 4- 00 00 RS ve IL 09 20 20 54 OL 30 17 17 23 FA 5 23 DC 6. LY 25 DR MG UG TA BL ET HY 16 02 03 [address] 72 -2 -2 .0 00 PE ti OC 90 4- 4- 00 00 RS ve HL 18 20 20 54 OR 31 17 17 23 FA OT 7 21 DC HI LY [place] ID DR Chetan OLVERA 25 MG TA B AT 00 02 03 30 30 00 SO Ac OR 37 -2 -2 .0 00 PE ti VA 83 4- 4- [address] 95 20 20 54 AT 20 17 17 23 FA IN 5 [address] MG UG TA BL ET DI 61 02 03 60 30 00 SO Ac CL 44 -2 -2 .0 00 PE ti OF 20 4- 4- 00 00 RS ve EN 10 20 20 54 AC 31 17 17 23 FA 0 26 DC SO LY D DR DR UG 75 MG TA B VE 00 02 03 18 20 00 SO Ac NT 17 -2 -2 .0 00 PE ti OL 30 4- 4- 00 00 RS ve IN 68 20 20 54 22 17 17 23 FA HF 0 19 DC A LY 90 DR MC UG G IN L[place]Z LE R NV 00 01 02 10 5 00 SO Ac ED 05 -2 -1 .0 00 PE ti NI 40 0- 7- 00 00 RS ve SO 01 20 20 55 NE 82 17 17 41 FA 9 15 DC [address] UG TA BL ET LE 55 01 02 7. 7 00 SO Ac VO 11 -2 -1 00 00 PE ti FL 10 0- 7- 0 00 RS ve OX 28 20 20 55 AC 13 17 17 41 FA IN 0 16 DC LY [address] MG UG TA BL ET IP 69 01 02 36 30 00 SO Ac RA 09 -2 -1 0. 00 PE ti T- 70 0- 7- 00 00 RS ve AL 17 20 20 0 55 BU 36 17 17 41 FA T 4 17 DC 0. LY 5- 3( DR 2. UG 5) MG /3 ML LE 55 01 01 7. 7 00 SO Ac VO 11 -0 -2 00 00 PE ti FL 10 4- 7- 0 00 RS ve OX 28 20 20 55 AC 13 17 17 27 FA IN 0 06 DC LY [address] MG UG TA BL ET FL 57 01 01 2. 3 00 SO Ac UC 23 -0 -2 00 00 PE ti ON 70 4- 7- 0 00 RS ve AZ 00 20 20 55 OL 51 17 17 27 FA E 1 11 DC [address] UG TA BL ET AZ 00 12 01 6. 5 00 SO Ac IT 78 -2 -2 00 00 PE ti HR 11 8- 0- 0 00 RS ve OM 49 20 20 55 YC 66 16 17 22 FA IN 8 09 DC LY [address] MG UG TA BL ET BE 67 12 01 30 10 00 SO Ac NZ 87 -2 -2 .0 00 PE ti ON 70 8- 0- 00 00 RS ve AT 10 20 20 55 AT 60 16 17 22 FA E 5 10 DC [address] UG CA PS UL E BIRCH 00 12 01 48 12 00 SO Ac DO 90 -2 -2 .0 00 PE ti GE 45 8- 0- [address] 05 20 20 55 32 16 17 22 FA 30 [address] TA UG BL ET [...] ai ZA 71 08 08 AR la NV 0 MA bl IN CY e E [...] AR la 1 MA bl CY e NV 68 04 [address] 69 No Ac OM 38 -0 -1 .0 AZ 57 t ti ET 20 1- 0- 00 A 57 Av ve LÓPEZ 04 20 20 PH 6 ai ZI 11 08 08 AR la NE 0 MA bl CY e 25 MG TA BL ET DI 00 04 04 [address] 69 No Ac AZ 59 -0 -1 .0 AZ 57 t ti EP 15 1- 0- 00 A 57 Av ve AM 61 20 20 PH 5 ai 5 90 08 08 AR la 5 MA bl MG CY e TA BL ET CI 60 04 04 [address] 69 No Ac TA 50 -0 -1 .0 AZ 57 t ti LO 52 1- 0- 00 A 57 Av ve NV 52 20 20 PH 7 ai AM 00 08 08 AR la 1 MA bl HB CY e R 40 MG TA BL ET Encounters Encounter Start End Date Code Location Performer Type Date [facility] 7 [facility] 7 [facility] [place] [address] [facility] [place] [address] [facility] [place] [id number] [facility] 6 [facility] 6 6 [facility] - 6 6 [facility] 6 [facility] - 6 [facility] - 5 5 [facility] - 5 5 [facility] - 5 5 [facility] - 5 5 [facility] - 5 5 [facility] - 5 5 [facility] - 4 4 [facility] - 4 4 [facility] - 3 3 [facility]
--- OUTSIDE RECORDS SUMMARY | 2017-04-14 15:08 | External Medical Summary Rpt | CCD ---
Author Author , LEAH LYNN Address Unknown Phone [email or web address] [facility] Care Team Providers Care Clinical Research Associate Name Role Phone JAH BECKER, Unavailable Unavailable RADHA BECKERANDA AWOSIKA DIXIE, AWOSIKA Unavailable Unavailable DIXIE CHOE, CHOE Unavailable Unavailable [facility] Unavailable Unavailable [facility], [facility] CINDY LONG, Unavailable Unavailable CINDY LONG [facility], Unavailable Unavailable [facility]available Unavailable [facility] Unavailable Unavailable [facility] JEREMIAH CARSON, JEREMIAH CARSON Unavailable Unavailable [facility], Unavailable Unavailable [facility] Unavailable Unavailable INC, [facility] Unavailable [facility]available HOSPITAL P, [facility] MALKA APPIAH, Unavailable Unavailable MALKA APPIAH [facility], Unavailable Unavailable [facility] NURSE Unavailable Unavailable PRACTITIONER GR, [facility] NURSE PRACTITIONER [facility] [place] Unavailable Unavailable [facility], [facility] [place] [facility] Unavailable Unavailable [place] [facility], [facility] [place] [facility] Unavailable Unavailable [facility] Unavailable Unavailable [facility], [facility] Unavailable Unavailable [facility]AT, [facility] Unavailable [...] [facility] Unavailable Unavailable [facility]ITALS, [facility], Unavailable Unavailable [facility] Unavailable [facility] MARY CARMEN NEGRO, Unavailable Unavailable MARY CARMEN NEGRO Purpose Continuity of Care Document - 07-28-2007 through 2016 Problems Code Diagnosis DOS Provider Status [id number] MORBID 02-27-2017 [facility] OBESITY DUE TO EXCESS CALORIES J020 STREPTOCOCC 02-14-2017 [facility] PHARYNGITIS N644 MASTODYNIA 12-23-2016 [facility] [place] [facility] [id number] PAIN IN 11-25-2016 [facility] RIGHT [facility] SHOULDER G4733 OBSTRUCTIVE 10-19-2016 [facility] ADULT MEDICAL PEDIATRIC EQUIPME M2550 PAIN IN 10-09-2016 S NURSE UNSPECIFIED PRACTITIONE JOINT R GR M797 FIBROMYALGI 10-09-2016 [facility] NURSE A PRACTITIONE R GR Z6842 BODY [...] H524 PRESBYOPIA 08-16-2016 [facility] R911 SOLITARY 07-05-2016 [facility]18 OTHER 07-05-2016 [facility] [place] NONSPECIFIC RADI[facility] ABNORMAL FINDING OF LUNG FIELD E7800 PURE 07-01-2016 [facility] UNSPECIFIED J449 CHRONIC 07-01-2016 [facility] N EMERGENCY PULMONARY PHYS DISEASE UNS M940 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 [facility] AL JUNCTION N EMERGENCY SYNDROME PHYS TIETZE R0602 SHORTNESS 07-01-2016 [facility] BREATH [facility]INIC R0789 OTHER CHEST 07-01-2016 [facility] PAIN N EMERGENCY PHYS T14441 OTHER LONG 07-01-2016 [facility] DRUG THERAPY Z888 ALLERGY 07-01-2016 [facility] RX MEDS & [facility] BIOLOG [facility] STS D04081 LATEX 07-01-2016 [facility] R0989 OT SPEC SX 06-28-2016 [facility] SIGNS CLINIC INVLV THE CIRC & RESP SYS R05 COUGH 06-05-2016 [facility] [place] [facility] R0689 OTHER 06-05-2016 [facility] ABNORMALITI [facility]IC ES OF BREATHING R509 FEVER 06-05-2016 [facility] [place] UNSPECIFIED RADIOLOGY M5116 INTERVERTEB 05-13-2016 [facility] W/RADICULOP ATHY LUMB RGN M5136 OT 05-13-2016 [facility] DISC HOSPI DEGEN LUMBAR REGION M545 LOW BACK 05-13-2016 [facility] C81666 PERSONAL 05-13-2016 [facility] DEPEND[facility] T46552 PAIN IN 05-06-2016 [facility] R9431 ABNORMAL 05-06-2016 [facility] ELECTROCARD SERV IOGRAM [facility]OUND[facility] M4806 SPINAL 04-26-2016 [facility] STENOSIS SERV LUMBAR FOUNDATION REGION M5126 OT 04-26-2016 [facility] RAL DISC DISPLACEMEN T LUMBAR RGN M5416 RADICULOPAT 04-26-2016 [facility] REGION J3489 OTHER 04-25-2016 [facility] SPEC[facility]IED [facility] DISORDERS NOSE AND NASAL SINUSES Z23 ENCOUNTER 03-21-2016 [facility] FOR [facility]INIC IMMUNIZATIO N M6281 MUSCLE 03-15-2016 S NURSE WEAKNESS PRACTITIONE GENERALIZED R GR R200 ANESTHESIA 03-15-2016 [facility] R32 UNSPECIFIED 03-15-2016 S NURSE URINARY PRACTITIONE INCONTINENC R GR E M5430 SCIATICA 03-08-2016 [facility] UNSPECIFIED SERV SIDE FOUNDATION M5440 LUMBAGO 03-08-2016 [facility] WITH SERV SCIATICA FOUNDATION UNSPECIFIED SIDE M5417 RADICULOPAT 02-20-2016 [facility] REGIONAL LUMBOSACRAL MEDIC REGION M2578 OSTEOPHYTE 02-16-2016 [facility]IC M4807 SPINAL 02-16-2016 [facility] STEN[facility]IS REGIONAL LUMBOSACRAL RADIOLOG REGION M5117 INTERVERTEB 02-16-2016 [facility] R[facility] DISC REGIONAL D/O MEDIC W/RADICULOP ATHY LS RGN M5127 OTH 02-16-2016 [facility] INTERVERTEB REGIONAL RAL DISC RADIOLOG DISPLACEMEN T LS REGION M7062 TROCHANTERI 02-07-2016 [facility] C [facility] REGIONAL LEFT HIP MEDIC G43223 STIFFNESS 02-03-2016 [facility] RIGHT FAMILY HIP NOT [facility] ELSEWHERE CLASSIFIED W51780 STIFFNESS 02-03-2016 [facility] OF LEFT HIP FAMILY NOT CHIROPRACTI ELSEWHERE CLASSIFIED M5137 OTH 02-03-2016 [facility] INTERVERTEB FAMILY RAL DISC CHIROPRACTI DEGEN LUMBOSACRAL REGION M532X7 SPINAL 02-03-2016 [facility] INSTABILITI FAMILY ES CHIROPRACTI LUMBOSACRAL REGION M5432 SCIATICA 02-03-2016 [facility] LEFT SIDE FAMILY CHIROPRACTI M9903 SEGMENTAL & 02-03-2016 [facility] 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 M9904 SEGMENTAL & 02-03-2016 [facility] SOMATIC 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 SACRAL REGION X84036 PAIN IN 01-30-2016 [facility] UNSPECIFIED [place] [facility] L732 HIDRADENITI 12-14-2015 [facility] S SUPPURATIVA F21736 PAIN IN 12-01-2015 [facility] [place] LEFT HIP RADIOLOGY M5186 OTHER 12-01-2015 [facility] DISORDER LUMBAR REGION D225 MELANOCYTIC 11-13-2015 [facility] NEVI OF TRUNK L578 OTH SKN 11-13-2015 [facility] CHANGES D/T CHRN EXPS TO NONIONIZING RAD L814 OTHER 11-13-2015 [facility] MELANIN HYPERPIGMEN TATION L821 OTHER 11-13-2015 [facility] SEBORRHEIC KERATOSIS L906 STRIAE 11-13-2015 [facility] ATROPHICAE J03156I UNSPECIFIED 10-19-2015 [facility] LEFT ANKLE INITIAL ENCOUNTER J069 ACUTE UPPER 09-05-2015 [facility]FE[facility] UNSPECIFIED O35506 CHRONIC 07-19-2015 [facility] TENSION-TYP CLINIC E HEADACHE [...] [facility] UNSPECIFIED [facility] ANGINA INC P[place]IS 10288 CHEST PAIN 11-11-2014 [place] [facility]PEC[facility] 78983 HYPERTENSIV 11-07-2014 [facility] E HEART [facility] DISEASE INC UNSPEC W/HEART FAIL 11706 CORONARY 11-07-2014 [facility] ATHEROSCLER [facility] OSIS TIMBI-SHA SHOSHONE INC CORONARY ARTERY 4168 OTHER 11-07-2014 [facility] CHRONIC [facility] PULMONARY INC HEART DISEASES 4280 CONGESTIVE 11-07-2014 [facility] HEART [facility] FAILURE INC UNSPECIFIED 4281 LEFT HEART 11-07-2014 [facility] FAILURE [facility] INC 70406 SHORTNESS 11-07-2014 [facility] OF BREATH [facility] INC 08258 OTHER CHEST 11-07-2014 [facility] PAIN [facility] 2189 LEIOMYOMA 09-02-2014 [facility] UNSPECIFIED 65658 MORBID 09-02-2014 [facility] OBESITY [facility] 5680 PERITONEAL 09-02-2014 [facility] ADHESIONS [facility] 6146 PELVIC 09-02-2014 [facility] PERITONEAL PHYSICIANS ADHESIONS, GROUP FEMALE 6212 HYPERTROPHY 09-02-2014 [facility] 6243 HYPERTROPHY 09-02-2014 [facility] 6250 DYSPAREUNIA 09-02-2014 [facility] 6262 EXCESSIVE 09-02-2014 [facility] OR FREQUENT [facility] MENSTRUATIO N 6268 OTH D/O 09-02-2014 [facility] MENSTRUATIO ANESTH OF N&OTH ABN THE BLUE BLEED FE GNT TRACT V7283 OTHER 09-01-2014 [facility] SPECIFIED [facility] P VE EXAMINATION 29583 OBESITY, 08-09-2014 [facility] UNSPECIFIED [facility]INIC 6235 LEUKORRHEA [...] SCREENING 05-19-2014 [facility] FOR CLINIC UNSPECIFIED CONDITION 32455 OTHER 05-18-2014 [facility] MALAISE AND [place] FATIGUE [facility] 96805 OTHER 05-17-2014 [facility] [place] NONSPECIFIC [facility] ABNORMAL FINDING OF LUNG FIELD 7867 ABNORMAL 05-10-2014 [facility] HEIDY CHEST SOUNDS CONSULTING SERV 7862 COUGH 04-27-2014 [facility] [place] [facility] 7906 OTHER 04-27-2014 [facility] ABNORMAL [place] BLOOD [facility]INGS CHEMISTRY 7962 ELEVATED BP 04-27-2014 [facility] READING [place] WITHOUT DX HOLDINGS HYPERTENSIO N 486 PNEUMONIA, 02-21-2014 CLARKE Kemp ORGANISM JHONNY PHILLIPS UNSPECIFIED PSC 51071 ESOPHAGEAL 02-21-2014 CLARKE Kemp REFLUX JHONNY PHILLIPS PSC 7804 DIZZINESS 02-21-2014 CLARKE HERNANDEZ MD GIDDINESS PSC 90945 HYPOXEMIA 02-21-2014 CLARKE BARRY MD PSC 6253 DYSMENORRHE 04-30-2013 [facility] V2540 UNSPECIFIED 04-30-2013 [facility] VE SURVEILLANC E 5959 UNSPECIFIED 03-15-2013 CLARKE Kemp CYSTITIS JHONNY PHILLIPS PSC 93371 DIARRHEA 03-15-2013 CLARKE BARRY MD PSC 44841 OTHER 02-23-2013 [facility] DISEASES OF RADIOLOGY LUNG NOT ASSOCIAT ELSEWHERE CLASSIFIED 91241 ABDOMINAL 02-23-2013 [facility] PAIN, HOSPITAL UNSPECIFIED SITE 2449 UNSPECIFIED 02-18-2013 [facility] HYPOTHYROID ISM V700 ROUTINE 02-18-2013 [facility] MEDICAL EXAM@HEALTH CARE FACL 49799 OVERWEIGHT 02-17-2013 CLARKE BARRY MD PSC V7231 ROUTINE 02-03-2013 [facility] AL EXAMINATION V7381 SPECIAL 02-03-2013 [facility] EXAMINATION HUMAN PAPILVIRUS 3671 MYOPIA 01-20-2013 [facility] D[facility] 66211 UNSPECIFIED 01-20-2013 [facility] DIXIE ASTIGMATISM 7245 UNSPECIFIED 11-11-2007 [facility] 08010 SPASM OF 10-23-2007 [facility] MUSCLE MEDICINE ASSOC [facility] 7218 OTHER 10-08-2007 [facility] ALLIED RADIOLOGY 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 SPINE PSC 49154 HYPERVENTIL 07-28-2007 [facility] ATION HOSP 82328 OTHER 07-28-2007 [facility] DYSPNEA AND HOSP RESPIRATORY ABNORMALITI ES Medications [...] 91 17 17 32 FA 4 42 SC [address] WADE TA BL ET AM 66 09 10 20 10 00 SO Ac OX 68 -0 -0 .0 00 PE ti -C 51 8- 6- 00 00 RS ve LA 00 20 20 57 V 10 17 17 21 FA 87 0 46 SC 5- LY [address] MG UG TA BL ET AT 00 09 10 30 30 00 SO Ac OR 37 -1 -0 .0 00 PE ti VA 83 1- 6- [address] 95 20 20 57 AT 20 17 17 22 FA IN [address] MG UG TA BL ET SY 00 09 10 10 30 00 SO Ac MB 18 -1 -0 .1 00 PE ti IC 60 1- 6- 99 00 RS ve OR 37 20 20 57 T 02 17 17 23 FA 16 0 00 SC 0- LY 4. 5 DR SMITH G IN [place] LE R CA 68 09 09 60 30 00 SO Ac RV 38 -0 -2 .0 00 PE ti ED 20 1- 9- 00 00 RS ve IL 09 20 20 56 OL 30 17 17 96 FA 5 27 SC 6[address] LY 25 DR MG UG TA BL ET HY 16 09 09 30 [address] 72 -0 -2 .0 00 PE ti OC 90 1- 9- 00 00 RS ve HL 18 20 20 56 OR 31 17 17 96 FA OT 7 26 SC HI LY AZ ID DR Chetan OLVERA 25 MG TA B VE 00 09 09 18 20 00 SO Ac NT 17 -0 -2 .0 00 PE ti OL 30 1- 9- 00 00 RS ve IN 68 20 20 56 22 17 17 96 FA HF 0 25 SC A LY 90 DR [place] IN [place] LE R DI 61 09 09 60 30 00 SO Ac CL 44 -0 -2 .0 00 PE ti OF 20 1- 9- 00 00 RS ve EN 10 20 20 56 AC 31 17 17 96 FA 0 24 SC SO LY D DR DR OLVERA 75 MG TA B LO 65 09 09 30 30 00 SO Ac SA 86 -0 -2 .0 00 PE ti RT 20 1- 9- 00 00 RS ve AN 20 20 20 56 29 17 17 96 FA PO 9 23 SC TA LY SS IU DR Carey OLVERA [...] 17 17 20 FA 16 0 71 SC 0- LY 4. 5 DR WHITFIELD IN L[place] LE R LO 65 08 09 30 30 00 SO Ac SA 86 -0 -0 .0 00 PE ti RT 20 4- 1- 00 00 RS ve AN 20 20 20 56 29 17 17 96 FA PO 9 23 SC TA LY SS IU DR Carey OLVERA 50 MG TA B DI 61 08 09 60 30 00 SO Ac CL 44 -0 -0 .0 00 PE ti OF 20 4- 1- 00 00 RS ve EN 10 20 20 56 AC 31 17 17 96 FA 0 24 SC SO LY D DR DR OLVERA 75 MG TA B VE 00 08 09 18 20 00 SO Ac NT 17 -0 -0 .0 00 PE ti OL 30 4- 1- 00 00 RS ve IN 68 20 20 56 22 17 17 96 FA HF 0 25 SC A LY 90 DR [place] IN [place] LE R HY 16 08 09 [address] 72 -0 -0 .0 00 PE ti OC 90 4- 1- 00 00 RS ve HL 18 20 20 56 OR 31 17 17 96 FA OT 7 26 SC HI LY AZ ID DR Chetan OLVERA 25 MG TA B CA 68 08 09 60 30 00 SO Ac RV 38 -0 -0 .0 00 PE ti ED 20 4- 1- 00 00 RS ve IL 09 20 20 56 OL 30 17 17 96 FA 5 27 SC 6. LY 25 DR MG UG TA [...] 17 17 23 FA PO 0 27 SC TA LY SS IU DR Carey UG 25 MG TA B AT 00 06 07 30 30 00 SO Ac OR 37 -0 -0 .0 00 PE ti VA 83 8- 7- [address] 95 20 20 54 AT 20 17 17 23 FA IN 5 [address] MG UG TA BL ET SY 00 06 07 10 30 00 SO Ac MB 18 -0 -0 .1 00 PE ti IC 60 8- 7- 99 00 RS ve OR 37 20 20 56 T 02 17 17 20 FA 16 0 71 SC 0- LY 4. 5 DR WH[place]FIELD IN [place] LE R HY 16 06 07 30 [address] 72 -0 -0 .0 00 PE ti OC 90 8- 7- 00 00 RS ve HL 18 20 20 54 OR 31 17 17 23 FA OT 7 21 SC HI LY AZ ID DR Chetan OLVERA 25 MG TA B VE 00 06 07 18 20 00 SO Ac NT 17 -1 -0 .0 00 PE ti OL 30 3- 7- 00 00 RS ve IN 68 20 20 56 22 17 17 21 FA HF 0 19 SC A LY 90 DR [place] IN L[place]PEZ [...] 89 17 17 21 FA 0 76 SC HC LY L DR DR OLVERA 30 MG CA P CH 00 04 05 60 30 00 SO Ac AN 06 -2 -1 .0 00 PE ti TI 90 0- 9- 00 00 RS ve X 46 20 20 56 1 95 17 17 19 FA MG 6 92 SC LY TA BL DR ET UG SY 00 04 05 10 30 00 SO Ac MB 18 -2 -1 .1 00 PE ti IC 60 1- 9- 99 00 RS ve OR 37 20 20 56 T 02 17 17 20 FA 16 0 71 SC 0- LY 4. 5 DR SMITH G IN L[place] LE R VE 00 04 05 18 20 00 SO Ac NT 17 -2 -1 .0 00 PE ti OL 30 4- 9- 00 00 RS ve IN 68 20 20 56 22 17 17 21 FA HF 0 19 SC A LY 90 DR SMITH G IN L[place] LE R CH 00 03 04 53 28 00 SO Ac AN 06 -2 -2 .0 00 PE ti TI 90 3- 1- 00 00 RS ve X [address] 10 17 17 96 FA AR 3 08 SC TI LY NG DR MUNA OLVERA NT H [place] X SY 00 03 03 10 30 00 SO Ac MB 18 -0 -3 .1 00 PE ti IC 60 3- 1- 99 00 RS ve OR 37 20 20 54 T 02 17 17 23 FA 16 0 28 SC 0- LY 4. 5 DR WH[place]FIELD IN L[place] LE R LO 65 02 03 30 30 00 SO Ac SA 86 -2 -2 .0 00 PE ti RT 20 4- 4- 00 00 RS ve AN 20 20 20 54 19 17 17 23 FA PO 0 27 SC TA LY SS IU DR Carey OLVERA 25 MG TA B CA 68 02 03 60 30 00 SO Ac RV 38 -2 -2 .0 00 PE ti ED 20 4- 4- 00 00 RS ve IL 09 20 20 54 OL 30 17 17 23 FA 5 23 SC 6. LY 25 DR MG UG TA BL ET HY 16 02 03 [address] 72 -2 -2 .0 00 PE ti OC 90 4- 4- 00 00 RS ve HL 18 20 20 54 OR 31 17 17 23 FA OT 7 21 SC HI LY AZ ID DR Chetan OLVERA 25 MG TA B AT 00 02 03 30 30 00 SO Ac OR 37 -2 -2 .0 00 PE ti VA 83 4- 4- [address] 95 20 20 54 AT 20 17 17 23 FA IN [address] MG UG TA BL ET DI 61 02 03 60 30 00 SO Ac CL 44 -2 -2 .0 00 PE ti OF 20 4- 4- 00 00 RS ve EN 10 20 20 54 AC 31 17 17 23 FA 0 26 SC SO LY D DR DR UG 75 MG TA B VE 00 02 03 18 20 00 SO Ac NT 17 -2 -2 .0 00 PE ti OL 30 4- 4- 00 00 RS ve IN 68 20 20 54 22 17 17 23 FA HF 0 19 SC A LY 90 DR MC UG G IN L[place]PEZ LE R WI 00 01 02 10 5 00 SO Ac ED 05 -2 -1 .0 00 PE ti NI 40 0- 7- 00 00 RS ve SO 01 20 20 55 NE 82 17 17 41 FA 9 15 SC [address] UG TA BL ET LE 55 01 02 7. 7 00 SO Ac VO 11 -2 -1 00 00 PE ti FL 10 0- 7- 0 00 RS ve OX 28 20 20 55 AC 13 17 17 41 FA IN 0 16 SC LY [address] MG UG TA BL ET IP 69 01 02 36 30 00 SO Ac RA 09 -2 -1 0. 00 PE ti T- 70 0- 7- 00 00 RS ve AL 17 20 20 0 55 BU 36 17 17 41 FA T 4 17 SC 0. LY 5- 3( DR 2. UG 5) MG /3 ML LE 55 01 01 7. 7 00 SO Ac VO 11 -0 -2 00 00 PE ti FL 10 4- 7- 0 00 RS ve OX 28 20 20 55 AC 13 17 17 27 FA IN 0 06 SC LY [address] MG UG TA BL ET FL 57 01 01 2. 3 00 SO Ac UC 23 -0 -2 00 00 PE ti ON 70 4- 7- 0 00 RS ve AZ 00 20 20 55 OL 51 17 17 27 FA E 1 11 SC [address] UG TA BL ET AZ 00 12 01 6. 5 00 SO Ac IT 78 -2 -2 00 00 PE ti HR 11 8- 0- 0 00 RS ve OM 49 20 20 55 YC 66 16 17 22 FA IN 8 09 SC LY [address] MG UG TA BL ET BE 67 12 01 30 10 00 SO Ac NZ 87 -2 -2 .0 00 PE ti ON 70 8- 0- 00 00 RS ve AT 10 20 20 55 AT 60 16 17 22 FA E 5 10 SC [address] UG CA PS UL E BIRCH 00 12 01 48 12 00 SO Ac DO 90 -2 -2 .0 00 PE ti GE 45 8- 0- [address] 05 20 20 55 32 16 17 22 FA 30 [address] TA UG BL ET [...] ai ZA 71 08 08 AR la WI 0 MA bl IN CY e E [...] AR la 1 MA bl CY e WI 68 04 [address] [...] 1- 0- 00 A 57 Av ve WI 52 20 20 PH 7 ai AM 00 08 08 AR la 1 MA bl HB CY e R 40 MG TA BL ET Encounters Encounter Start End Date Code Location Performer Type Date [facility] - 7 7 [facility] 7 7 [facility] [place] [address] [facility] [place] [address] 7 [facility] [place] [address] 6 [facility] - 6 6 [facility] - 6 6 [facility] - 6 6 [facility] - 6 6 [facility] - 6 6 [facility] - 6 6 [facility] - 6 6 [facility] - 5 5 [facility] - 5 5 [facility] - 5 5 [facility] - 5 5 [facility] - 5 5 [facility] - 5 5 [facility] - 4 4 [facility] - 4 4 [facility] - 3 3 [facility] - 8 8 [facility] - 8 8 [facility]
--- OUTSIDE RECORDS SUMMARY | 2017-04-14 15:09 | External Medical Summary Rpt | CCD ---
Demographics Preferred Language Frisian Marital Status Unknown Hindu Affiliation Unknown Race Unknown Ethnic Group Unknown Author Author , ALYX LYNN Address Unknown Phone Immunization No patient found.
--- OUTSIDE RECORDS SUMMARY | 2017-04-14 15:09 | External Medical Summary Rpt | CCD ---
Demographics Preferred Language Thai Marital Status Unknown Orthodoxy Affiliation Unknown Race Unknown Ethnic Group Unknown Author Author , ALYX LYNN Address Unknown Phone Immunization No patient found.
--- OUTSIDE RECORDS SUMMARY | 2017-04-14 15:10 | External Medical Summary Rpt ---
Author Author LEAH Guillen, SAMUELOJ [employer] Organization [employer] Address Unknown Phone Unavailable Results Lactate [Moles/volume] in Blood Observa Value Referen Units Interpr Notes Date tion ce etation Range Lactate 0.4 - 2.0 mmol/L Normal No Apr 14 [Moles/vo informati 2016 1:00 lume] in on in PM Blood source data CBC W Auto Differential panel in Blood Observa Value Referen Units Interpr Notes Date tion ce etation Range Basophils 0 - 0.2 K/MM3 Normal No Apr 14 inform2016 1:00 [#/volume on in PM ] in source Blood by data Automated count Basophils 0.1 - 2.0 % Normal No Apr 14 /100 informati 2016 1:00 leukocyte on in PM s in source Blood by data Automated count Eosinophi 0.0 - 0.4 K/mm3 Normal No Apr 14 ls informati 2016 1:00 [#/volume on in PM ] in source Blood by data Automated count Eosinophi 0.1 - % Normal No Apr 14 ls/100 12.0 informati 2016 1:00 leukocyte on in PM s in source Blood by data Automated count Granulocy 1.8 - 7.8 K/mm3 Normal No Apr 14 dixon informati 2016 1:00 [#/volume on in PM ] in source Blood by data Automated count Granulocy 37.0 - % Normal No Apr 14 dixon/100 80.0 informati 2016 1:00 leukocyte on in PM s in source Blood by data Automated count Hematocri 37.0 - % Normal No Apr 14 t [Volume 47.0 informati 2016 1:00 on in PM Fraction] source of Blood data Hemoglobi 12.2 - g/dL No No Apr 14 n 16.2 informati informati 2016 1:00 [Mass/vol on in on in PM ume] in source source Blood data data Lymphocyt 0.7 - 4.5 K/mm3 Normal No Apr 14 es ati 2016 1:00 [#/volume on in PM ] in source Unspecifi data ed specimen by Automated count Lymphocyt 10 - 50.0 % Normal No Apr 6 es 2016 1:00 [#/volume on in PM ] in source Unspecifi data ed specimen by Automated count Erythrocy 27 - 31.2 pg Normal No Apr 6 te mean inform2016 1:00 corpuscul on in PM ar source hemoglobi data n [Entitic mass] Erythrocy 31.8 - g/dl Normal No Apr 14 te mean 35.4 inform2016 1:00 corpuscul on in PM ar source hemoglobi data n concentra tion [Mass/vol ume] by Automated count Erythrocy 82.2 - fl Normal No Apr 14 te mean 97.8 informati 2016 1:00 corpuscul on in PM ar volume source [Entitic data volume] by Automated count Monocytes 0.1 - 1.0 K/mm3 Normal No Apr 6 2016 1:00 [#/volume on in PM ] in source Blood by data Automated count Monocytes 1.7 - 9.3 % Normal No Apr 6 /100 informati 2016 1:00 leukocyte on in PM s in source Blood by data Automated count Platelet 7.4 - fl Low No Apr 14 mean 10.4 2016 1:00 volume on in PM [Entitic source volume] data in Blood by Automated count Platelets 142 - 424 K/mm3 Normal No Apr 6 2016 1:00 [#/volume on in PM ] in source Blood data Erythrocy 4.2 - 5.4 M/mm3 Normal No Apr 6 dixon inform2016 1:00 [#/volume on in PM ] in source Amniotic data fluid Erythrocy 11.5 - % Normal No Apr 14 te 17.5 2016 1:00 distribut on in PM ion width source [Entitic data volume] by Automated count Leukocyte 4.8 - K/MM3 Normal No Apr 6 s 10.8 ati 2016 1:00 [#/volume on in PM ] in source Blood data LSWO Observa Value Referen Units Interpr Notes Date tion ce etation Range TEXT \\.br\\Pa No No No No Sep 9 DIAGNOS tient : informa informa informa informa 2016 IS tion in tion in tion in tion in 5:06 PM CHASTITY OROURKE, source source source source LINDA data data data data 7 Visit Type : REG CLI\\.br \\ : [id number] Rm/Bed :\\.br\\A ge/Sex : 40/F\\.b r\\\\.br\\ Orderin g Physici an : Sirisha Cameron PA-C Tech : López Israel Mitchel\\. br\\Acce ssion # : [id number] Time In : 1601\\.b r\\Categ ory: [...] Jun 02 GROWTH informa informa informa informa 2014 AT 1 tion in tion in tion [...] 02 D BY informa informa informa informa 2014 tion in tion in tion in tion in 2:23 PM source source source source data data data data SEND Y No No No Jun 02 PHARM/I informa [...] No May 28 [Moles/ 145 informa informa 2014 volume] tion in tion in 1:22 PM [...] No May 28 gap in informa informa 2015 Serum tion in tion in 1:22 PM or source source Plasma data data Glucose 111 70 - mg/dl No No May 28 120 informa informa 2015 [Mass/v tion in tion in 1:22 PM olume] source source in data data Serum or Plasma Urea 7 7 - 18 mg/dl No No May 28 nitroge informa informa 2015 n tion in tion in 1:22 PM [Mass/v source source olume] data data in Serum or Plasma Creatin 0.8 0.6 - mg/dl No No May 28 ine 1.3 informa informa 2015 [Mass/v tion in tion in 1:22 PM [...] May 28 ity of 295 informa informa 2015 Unspeci tion in tion in 1:22 PM fied source source specime data data n Calcium 9.1 8.5 - mg/dl No No May 28 10.1 informa informa 2015 [Mass/v tion in tion in 1:22 PM olume] source source in data data Serum or Plasma Bilirub 0.4 0.2 - mg/dl No No May 28 in.tota 1.0 informa informa 2015 l tion in tion in 1:22 PM [...] IU/L No No May 28 informa informa 2015 aminotr tion in tion in 1:22 PM ansfera source source se data data [Enzyma tic activit y/volum e] in Serum or Plasma Alkalin 63 46 - IU/L No No May 28 e 116 informa informa 2015 phospha tion in tion in 1:22 PM tase source source [Enzyma data data tic activit y/volum e] in Serum or Plasma Protein 8.1 6.4 - g/dl No No May 28 8.2 informa informa 2015 [Mass/v tion in tion in 1:22 PM olume] source source in data data Serum or Plasma Albumin 3.6 3.4 - g/dl No No May 28 5.0 informa informa 2014 [Mass/v tion in tion in 1:22 PM olume] source source in data data Serum or Plasma Albumin 4.5 1.3 - g/dl High No May 28 /Globul 3.5 informa 2014 in tion in 1:22 PM [Mass source [...] Observa Value Referen Units Interpr Notes Date ti ce etation Range Natriut 82 0 - [...] would account for all circums tances. NT-proB [employer]ER can show substan tial increas es in patient s without heartfa ilure with increas ing age and advanci ng renal insuffi ciency; malesin general have somewha t higher values than females . There are otherca uses of increas ed NT-proB [employer]ER not related to congest dennis heartfa ilure [...] K/uL High No May 28 dixon 11.5 inform2014 [#/volu tion in 1:15 PM me] in source Blood data by Automat ed count Erythro 5.35 4.00 - M/uL No No May 28 cytes 5.40 informa informa 2015 [#/volu tion in tion in 1:15 PM me] in source source Blood data data by Automat ed count Hemoglo 15.7 12.0 - g/dL High No May 28 bin 15.0 informa 2014 [Mass/v tion in 1:15 PM olume] source in data Blood Hematoc 46 35 - 49 % No No May 28 rit informa informa 2015 [Volume tion in tion in 1:15 PM source source Fractio data data n] of Blood by Automat ed count Erythro 86.5 80.0 - fL No No May 28 cyte 100 informa informa 2015 mean tion in tion in 1:15 PM [...] % High No May 28 cyte 14.5 inform2014 distrib tion in 1:15 PM ution source width data [Ratio] by Automat ed count Platele 373 150 - K/uL No No May 28 ts 450 informa informa 2014 [#/volu tion in tion in 1:15 PM me] in source source Blood data data by Automat ed count Lymphoc 20.7 18.0 - % No No May 28 ytes/10 42.0 informa informa 2015 0 tion in tion in 1:15 PM leukocy source source dixon in data data Blood by Automat ed count Monocyt 4.9 2.0 - % No No Dec 20 es/100 11.0 informa informa 2015 leukocy tion in tion in 1:15 PM dixon in source source Blood data data by Automat ed count Neutrop 72.8 50.0 - % High No Dec 20 hils.ba 70.0 informa 2015 nd tion in 1:15 PM form/10 source 0 data leukocy dixon in Blood by Manual count Eosinop 1.10 1.00 - % No No May 20 hils/10 3.00 informa informa 2015 0 tion in tion in 1:15 PM leukocy source source dixon in data data Blood by Automat ed count Basophi 0.50 0.00 - % No No Dec 20 ls/100 2.00 informa informa 2015 leukocy tion in tion in 1:15 PM dixon in source source Blood data data by Automat ed count Lymphoc 2.84 0.60 - K/uL No No Dec 20 ytes/10 3.40 informa informa 2015 0 tion in tion in 1:15 PM leukocy source source dixon in data data Blood by Automat ed count Monocyt 0.67 0.00 - K/uL No No Dec 20 es/100 0.90 informa informa 2015 leukocy tion in tion in 1:15 PM dixon in source source Blood data data by Automat ed count Neutrop 10.02 2.00 - K/uL High No May 20 hils.ba 6.90 informa 2015 nd tion in 1:15 PM form/10 source 0 data leukocy dixon in Blood by Manual count Eosinop 0.15 0.00 - K/uL No No May 20 hils/10 0.70 informa informa 2015 0 tion in tion in 1:15 PM leukocy source source dixon in data data Blood by Automat ed count Basophi 0.07 0.00 - K/uL No No Dec 20 ls/100 0.20 informa informa 2015 leukocy tion in tion in 1:15 PM dixon in source source Blood data data by Automat ed count Manual NOT No No No No Dec 20 differe INDICAT informa informa informa informa 2015 ntial ED tion in tion in tion in tion in 1:15 PM perform source source source source ed data data data data [Presen ce] in Blood XR CHEST AP LA Observa Value Referen Units Interpr Notes Date tion ce etation Range XR No No No No May 28 CHEST informa informa informa informa 2015 AP LA tion in tion in tion in tion in 12:05 source source source source PM data data data data [facility] L\\.br\\ [address]\\.br \\ [place] [address]\\. br\\\\.br \\ RADIOLO GY REPORT\\ .br\\ Name: HAVEN MCKEON \\.br\\ Patient #: [id number] Stay Type: E/R\\.br \\ Age: 40 Room: [facility]\\. br\\ : 973 Sex: F\\.br\\ Orderin g Phys: JEREMIAH HARPER MR#: [id number]\\. br\\ Family Phys: CRISTHIAN YOLANDA Pt Phone: [phone] /[phone]\\. br\\ Admitti ng Phys: JEREMIAH HARPER\\.b r\\ Unsig rachell Transcr iptions represe nt a prelimi nary report and do\\.br\\ not reflect a medical or legal documen t.\\.b r\\\\.br\\ \\.br\\ [place] [address] COMPLET E:05/28 12:53 CGS 40765\\. br\\ (REASON FOR CHEST: COUGH\\. br\\\\.br \\\\.br\\\\ [...] RADIOLO GIST\\.b r\\ Transcr . Date/Ti me: 5 05:45 Transcr . Init.: amh\\.br \\\\.br\\ Copy for: JEREMIAH MEDINA\\. br\\ Copy for: 073 HEALTH INFORMA TION MANAGEM ENT\\.br \\ DISCHAR GED\\.br \\\\.br\\ CT CHEST W Observa Value Referen Units Interpr Notes Date tion ce etation Range CT No No No No Sep 3 CHEST W informa informa informa informa 2013 in in on in in 4:14 PM source source source source data data data data [facility]\\.br\\ [address]\\.br \\ [facility] [place] [address]\\. br\\\\.br \\ RADIOLO GY REPORT\\ .br\\ Name: HAVEN MCKEON \\.br\\ Patient #: [id number] Stay Type: E/R\\.br \\ Age: 38 Room: [facility]\\. br\\ : 973 Sex: F\\.br\\ Orderin g Phys: BETHEL BENTLEYA MR#: [id number]\\. br\\ Family Phys: JHONNY SA Pt Phone: [phone] /[phone]\\. br\\ Admitti ng Phys: SADEK MOHA\\.b r\\ [...] followi ng adminis tration of\\.br\\ intrave nous contrmatti t. This data was used to perform [...] / 08:42 Transcr . Init.: amh\\.br \\ [facility]\\.br\\ [address]\\.br \\ [place] [address]\\. br\\\\.br \\ RADIOLO GY REPORT\\ .br\\ Name: HAVEN MCKEON \\.br\\ Patient #: [id number] Stay Type: E/R\\.br \\ Age: 38 Room: [facility]\\. br\\ : 973 Sex: F\\.br\\ Orderin g Phys: BETHEL SUAREZ MR#: [id number]\\. br\\ Family Phys: JHONNY SINGH Pt Phone: [phone] /[phone]\\. br\\ Admitti ng Phys: BETHEL SUAREZ\\.b r\\ [...] source source source data data data data [facility]\\.br\\ [address]\\.br \\ [place] [address]\\. br\\\\.br \\ RADIOLO GY REPORT\\ .br\\ Name: HAVEN MCKEON \\.br\\ Patient #: [id number] Stay Type: E/R\\.br \\ Age: 38 Room: [facility]\\. br\\ : 973 Sex: F\\.br\\ Orderin g Phys: BETHEL SUAREZ MR#: [id number]\\. br\\ Family Phys: JHONNY SA Pt Phone: [phone] /[phone]\\. br\\ Admitti ng Phys: BETHEL SUAREZ\\.b r\\ [...] 2014 also be tion in tion in tion in tion in 2:34 PM source source source source elevate data data data data d for a variety of disorde rs includi ng: old No No No No Sep 3 age, informa informa informa informa 2014 pregnan tion in tion in tion in tion in 2:34 PM cy, source source source source coronar data data data data y disease , cancer, liver disease , infecti on, inflama No No No No Sep 3 tion, informa informa informa informa 2014 hematom tion in tion in ti in tion in 2:34 PM a, DIC, source source source source data data data data trauma, post-alford rgery, diabete s, thrombo lytic therapy No No No No Sep 3 , informa informa informa informa 2014 stress, tion in tion in ti in tion in 2:34 PM and source source source source hospita data data data data lizatio n. D-Dimer levels may be decreas ed in patient No No No No Sep 3 s on informa informa informa informa 2014 anti-co tion in tion in ti in ti in 2:34 PM agulant source source source [...] No No Sep 3 GAP informa informa 2013 tion in tion in 2:24 PM source [...] No Sep 3 ine 1.3 informa informa 2013 [Mass/v tion in tion in 2:24 PM olume] source source in data data Serum or Plasma AGE 38 No yrs No No Sep 3 informa informa informa 2013 tion in tion in tion in 2:24 [...] No Sep 3 in.tota 1.0 informa informa 2013 l tion in tion in 2:24 PM [...] Sep 3 patient informa informa informa informa 2013 is tion in tion in tion in tion in 2:24 PM source source source source data data data data [place] n, multipl y GFR by 1.120. *GFR No No No No Sep 3 only informa informa informa informa 2013 applies tion in tion in tion in tion in 2:24 PM to source source source source adults data data data data over the age 18. BNP NT pro Observa Value Referen Units Interpr Notes Date tion ce etation Range NT-proB 183 0 - 131 pg/ml High No Sep 3 [employer]ER informa 2014 tion in 2:24 PM source [...] NT-proB No No No No Sep 3 [employer]ER can informa informa informa informa 2014 show [...] source source NT-proB data data data data [employer]ER not related to congest dennis heart failure [...] VRFY: I informa informa informa informa 2014 [id number] tion in tion in tion in tion in 2:24 PM 1415 source source source source data data data data 0 - No No No No Sep 3 0.06 informa informa informa informa 2013 ng/ml tion in tion in tion in [...] No Sep 3 bin 15.0 informa informa 2014 [Mass/v tion in tion in 2:23 PM [...] High No Sep 3 cyte 14.5 informa 2014 distrib tion in 2:23 PM ution source [...] No No Sep 17 120 informa informa 2012 [Mass/v tion in tion in 11:55 olume] source source AM in data data Serum or Plasma Urea 7 7 - 18 mg/dl No No Sep 17 nitroge informa informa 2013 n tion in tion in 11:55 [Mass/v source source AM olume] data data in Serum or Plasma Creatin 1.0 0.60 - mg/dl No No Sep 17 ine 1.30 informa informa 2012 [Mass/v tion in tion [...] No No Sep 17 10.10 informa informa 2012 [Mass/v tion in tion in 11:55 olume] source source AM in data data Serum or Plasma Bilirub 0.3 0.20 - mg/dl No No Sep 17 in.tota 1.0 informa informa 2012 l tion in tion in 11:55 [Mass/v [...] No No Sep 17 5.0 informa informa 2013 [Mass/v tion in [...] data data data over the age 18. 67079-6 Observa Value Referen Units Interpr Notes Date [...] High No Sep 17 cyte 14.80 informa 2012 distrib tion in 11:39 ution source AM width data [Ratio] by Automat ed count Platele 417 142 - K/uL No No Sep 17 ts 424 informa informa 2012 [#/volu tion in tion in 11:39 me] [...] 17 AP LA informa informa informa informa 2012 tion in tion in tion in tion in 11:07 source source source source AM data data data data [facility]\\.br\\ [address]\\.br \\ [place] [address]\\. br\\\\.br \\ RADIOLO GY REPORT\\ .br\\ Name: HAVEN MCKEON \\.br\\ Patient #: [id number] Stay Type: O/P\\.br \\ Age: 37 Room:\\. br\\ : 973 Sex: F\\.br\\ Orderin g Phys: JHONNY SA MR#: [id number]\\. br\\ Family Phys: JHONNY SA Pt Phone: [phone] /[phone]\\. br\\ Admitti ng Phys: JHONNY SA\\.br\\ Unsig [...] Dictate d By: MALKA APPIAH MD RADIOLO GIST\\.b r\\ Transcr . Date/Ti me: 02/23/13 / 16:49 Transcr . Init.: ANKITA\\.br \\\\.br\\ Copy for: JHONNY ZELAYA M.D. via link\\.b r\\\\.br\\
--- OUTSIDE RECORDS SUMMARY | 2017-04-14 15:10 | External Medical Summary Rpt ---
[...] Type : REG CLI\\.br \\ : [id number] Rm/Bed :\\.br\\A ge/Sex : 40/F\\.b r\\\\.br\\ Orderin g Physici an : Sirisha Cameron PA-C Tech : López Israel Mitchel\\. br\\Acce ssion # : [id number] Time In : 1601\\.b r\\Categ ory: [...] would account for all circums tances. NT-proB SUPERINTENDENT MECHANICAL can show substan tial increas es in patient s without heartfa ilure with increas ing age and advanci ng renal insuffi ciency; malesin general have somewha t higher values than females . There are otherca uses of increas ed NT-proB SUPERINTENDENT MECHANICAL not related to congest dennis heartfa ilure [...] source source PM data data data data [facility] L\\.br\\ [address]\\.br \\ [place] [address]\\. br\\\\.br \\ RADIOLO GY REPORT\\ .br\\ Name: HAVEN MCKEON \\.br\\ Patient #: [id number] Stay Type: E/R\\.br \\ Age: 40 Room: [facility]\\. br\\ : 973 Sex: F\\.br\\ Orderin g Phys: JEREMIAH HARPER MR#: [id number]\\. br\\ Family Phys: CRISTHIAN YOLANDA Pt Phone: [phone] /[phone]\\. br\\ Admitti ng Phys: JEREMIAH HARPER\\.b r\\ Unsig rachell Transcr iptions represe nt a prelimi nary report and do\\.br\\ not reflect a medical or legal documen t.\\.b r\\\\.br\\ \\.br\\ [place] [address] COMPLET E:05/28 12:53 CGS 82727\\. br\\ (REASON FOR CHEST: COUGH\\. br\\\\.br \\\\.br\\\\ [...] Transcr . Init.: amh\\.br \\\\.br\\ Copy for: JERMEIAH MEDINA\\. br\\ Copy for: 073 HEALTH INFORMA TION MANAGEM ENT\\.br \\ DISCHAR GED\\.br \\\\.br\\ CT CHEST W Observa Value Referen Units Interpr Notes Date tion ce etation Range CT No No No No Sep 3 CHEST W informa informa informa informa 2013 in in on in in 4:14 PM source source source source data data data data [facility] L\\.br\\ [address]\\.br \\ [place] [address]\\. br\\\\.br \\ RADIOLO GY REPORT\\ .br\\ Name: HAVEN MCKEON \\.br\\ Patient #: [id number] Stay Type: E/R\\.br \\ Age: 38 Room: [facility]\\. br\\ : 973 Sex: F\\.br\\ Orderin g Phys: BETHEL BENTLEYA MR#: [id number]\\. br\\ Family Phys: JHONNY SA Pt Phone: [phone] /[phone]\\. br\\ Admitti ng Phys: SADEK MOHA\\.b r\\ [...] / 08:42 Transcr . Init.: amh\\.br \\ [facility] L\\.br\\ [address]\\.br \\ [place] [address]\\. br\\\\.br \\ RADIOLO GY REPORT\\ .br\\ Name: HAVEN MCKEON \\.br\\ Patient #: [id number] Stay Type: E/R\\.br \\ Age: 38 Room: [facility]\\. br\\ : 973 Sex: F\\.br\\ Orderin g Phys: BETHEL SUAREZ MR#: [id number]\\. br\\ Family Phys: JHONNY SINGH Pt Phone: [phone] /[phone]\\. br\\ Admitti ng Phys: BETHEL SUAREZ\\.b r\\ [...] source source source data data data data [facility] L\\.br\\ [address]\\.br \\ [place] [address]\\. br\\\\.br \\ RADIOLO GY REPORT\\ .br\\ Name: HAVEN MCKEON \\.br\\ Patient #: [id number] Stay Type: E/R\\.br \\ Age: 38 Room: [facility]\\. br\\ : 973 Sex: F\\.br\\ Orderin g Phys: BETHEL SUAREZ MR#: [id number]\\. br\\ Family Phys: JHONNY SA Pt Phone: [phone] /[phone]\\. br\\ Admitti ng Phys: BETHEL SUAREZ\\.b r\\ [...] - 131 pg/ml High No Sep 3 SUPERINTENDENT MECHANICAL informa 2014 tion in 2:24 PM source [...] NT-proB No No No No Sep 3 SUPERINTENDENT MECHANICAL can informa informa informa informa 2014 show [...] source source NT-proB data data data data SUPERINTENDENT MECHANICAL not related to congest dennis heart failure [...] VRFY: I informa informa informa informa 2014 [id number] tion in tion in tion in tion [...] data data data over the age 18. 61369-1 Observa Value Referen Units Interpr Notes Date [...] source source AM data data data data [facility]\\.br\\ [address]\\.br \\ [place] [address]\\. br\\\\.br \\ RADIOLO GY REPORT\\ .br\\ Name: HAVEN MCKEON \\.br\\ Patient #: [id number] Stay Type: O/P\\.br \\ Age: 37 Room:\\. br\\ : 973 Sex: F\\.br\\ Orderin g Phys: JHONNY SA MR#: [id number]\\. br\\ Family Phys: JHONNY SA Pt Phone: [phone] /[phone]\\. br\\ Admitti ng Phys: JHONNY SA\\.br\\ Unsig [...]
[2017-04-14 16:26] VITALS: BP 168/97
[2017-04-14 20:30] VITALS: BP 178/98
[2017-04-14 23:56] VITALS: BP 174/57
[2017-04-15] VITALS (7 sets, daily range): BP systolic 133–167; BP diastolic 75–90
[2017-04-15 06:19] LABS: HEMOGLOBIN 15.6 g/dL (12.2-16.2); LYMPH # 0.9 K/mm3 (0.7-4.5); LYMPH % 8.7 % (10-50.0)
--- NOTE | 2017-04-15 07:00 | RADIOLOGY REPORT PS360 ---
CHEST(2 VIEWS-NOT PORTABLE) HISTORY: Shortness of breath SOB ORDERING PHYSICIAN: Renaldo Garrido MD PATIENT AGE: 41 years COMPARISON: 04/14/2017 FINDINGS: Normal heart size. The pulmonary vessels are not engorged.. There is been interval development of prominence of the interstitium with curly B lines consistent with interstitial edema . No lobar consolidation or collapse. No acute bony anomalies. IMPRESSION: Interval development of interstitial edema with normal heart size which may be due to acute plasma volume overload, acute cardiac decompensation, or interstitial pneumonitis.
--- NOTE | 2017-04-15 07:29 | PHARMACY CLINIC NOTE ---
Patient Demographics Patient Demographics Admission date: 04/14/17 Date: 04/15/17 Time: 0728 Allergies Coded Allergies: latex (Mild, 04/14/17) HEIGHT- FT: 5 IN: 9.00 K.616 VTE General Information Labs: Laboratory Tests 04/15 04/14 0505 1300 Hematology Hgb (12.2 - 16.2 g/dL) 15.6 15.3 Hct (37.0 - 47.0 %) 47.9 H 46.3 Plt Count (142 - 424 K/mm3) 392 353 Disclaimer The following section includes nursing documentation that has been pulled in for pharmacy review. Patient's VTE score: 4 Patient's VTE Risk: LOW RISK Clinical trial participant? No VTE prophylaxis NQF 0371 VTE prophylaxis ordered? Yes Type of prophylaxis/treatment: VEEAN at 0728
--- NOTE | 2017-04-15 07:29 | PHARMACY CLINIC NOTE ---
Patient Demographics Patient Demographics Admission date: 04/14/17 Date: 04/15/17 Time: 0728 Allergies Coded Allergies: latex (Mild, 04/14/17) HEIGHT- FT: 5 IN: 9.00 K.616 VTE General Information Labs: Laboratory Tests 04/15 04/14 0505 1300 Hematology Hgb (12.2 - 16.2 g/dL) 15.6 15.3 Hct (37.0 - 47.0 %) 47.9 H 46.3 Plt Count (142 - 424 K/mm3) 392 353 Disclaimer The following section includes nursing documentation that has been pulled in for pharmacy review. Patient's VTE score: 4 Patient's VTE Risk: LOW RISK Clinical trial participant? No VTE prophylaxis NQF 0371 VTE prophylaxis ordered? Yes Type of prophylaxis/treatment: VEENA at 0728
[2017-04-15] MEDS ORDERED: SYMBICORT 10.10.2 ML IH (08:13)
[2017-04-15] MEDS ORDERED: ALBUTEROL-200 PUFFS/ IH (08:14)
[2017-04-15] MEDS ORDERED: IPRATROPIUM BROM3 M2 IH (08:15)
--- NOTE | 2017-04-15 08:34 | HISTORY AND PHYSICAL REPORT ---
History and Physical ([facility]) Date of admission: 04/14/17 Chief complaint: Shortness of breath History: History of Present Illness: Mrs. Rojas is a 41yo WF with a history of HTN, HLP, and COPD smoking 2ppd. She reports she had been receiving treatment for bronchitis from her PCP Sonia Charles APRN, last week with little improvement in chest congestion, cough, or shortness of breath. She had a negative CXR as an outpatient. When she became increasingly short of breath over the weekend, her PCP recommended she be evaluated in the ER. Upon arrival, she was noted to be in mild respiratory distress with sats in the low 90's. Her CXR showed atelectasis vs infiltrate LLL and right perihilar regions. Her D-dimer was negative. Her case was discussed with Dr. Garrido and she was admitted with IV antibiotics and steroids. This morning she reports feeling somewhat better although she remains very SOB with any exertion, including conversation. She continues with productive cough. She denies pain. Past Medical History: Medical History: CAD? No Angina: No CO: No Hypertension? Yes Hyperlipidemia? Yes CHF? Yes DVT? No PE? No COPD? Yes Asthma? No Anemia? No GERD? No Gastric ulcers? No GI Bleed? No Hernia? No Thyroid Problems? No Hypothyroidism? No CVA? No Seizures? No Diabetes? No Renal Insuffiency? No UTI? No Stones? No BPH? No GB Disease: No Nephritic Syndrome? No Asplenia? No Hepatitis? No Sickle Cell Disease? No Arthritis? No Migraines? Yes Cataracts? No Glaucoma? No MRSA? No HIV? No TB? No Anxiety? No Depression? No Cancer? No Surgical history: Previous Surgery? 1. 2. HYSTERECTOMY 3. LABIAL REDUCTION 4. LUMBAR DISCECTOMY Medications: Reported Medications BUDESONIDE/FORMOTEROL FUMARATE (Symbicort 80-4.5 Mcg Inhaler) 2 AER IH BID Albuterol (Albuterol-Hfa Inhaler) 2 PUFF IH Q4HP PRN SOB or wheezing IPRATROPIUM/ALBUTEROL SULFATE (Iprat-Albut 0.5-3(2.5) MG/3 Ml) 3 ML IH QIDP PRN SOB or wheezing Gabapentin 300 MG PO BID #270 Losartan Potassium (Cozaar) 50 MG OR DAILY Carvedilol (Coreg 3.125MG) 3.125 MG PO BID Diclofenac Sodium (Voltaren 50mg) 50 MG PO DAILY Hydrochlorothiazide (Microzide) 12.5 MG PO EVENINGS Atorvastatin Calcium (Lipitor 20MG) 20 MG PO DAILY Discontinued Reported Medications Atorvastatin Calcium 40 MG PO QHS #30 DC: 04/15/17 0816 BUDESONIDE/FORMOTEROL FUMARATE (Symbicort 80-4.5 Mcg Inhaler) 1 PUFF IH BID Albuterol (Albuterol-Hfa Inhaler) 1 PUFF IH Allergies: Coded Allergies: latex (Mild, 04/14/17) Family History: Family history: Postive for: CAD, DM, HTN, cancer, stroke. Negative for: seizure. Social History: Smoking Hx Tobacco: Yes Smoker: Current Every Day Smoker Type: Cigarettes Packs/day: 1 1/2 - 2 Packs Are you exposed to second hand Yes Alcohol: Alcohol: No Hx of Drug Use: Drug Use? No Patien't marital status is: Patient's support system is: good Patient's occupation: unemployed Recent travel: none Review of Systems: Patient unresponsive? No Constitutional Positive for: fatigue, weak. No: chills. ENT Positive for: nasal congestion, sore throat. Cardiovascular Positive for: [place]. No: chest pain, edema, palpitations. Respiratory Positive for: dyspnea on exertion, shortness of air, productive cough (sputum). No: pleuritic pain, pneumonia, wheezing. GI Positive for: diarrhea. No: abdominal pain, constipation, hematochezia, melena, nausea, vomitting. (female) No: frequency, hematuria, pelvic pain, urgency. Skin No: itching, rash. Neurological Positive for: headache, light headed, weakness. No: confusion, dizziness, numbness, syncope, vision change. Immune/allergy No: itching. Eyes No: blurry vision, vision loss. Musculoskeletal No: extremity pain, joint pain. Heme No: bleeding. Psychiatric No: anxious, confused, change in mental status. Physical Exam: Vital signs: 1ST Vital Signs Result Date Time Pulse Ox 90 04/14 1246 B/P 190/100 04/14 1246 O2 Flow Rate 3 04/14 1246 Temp 98.3 04/14 1246 Pulse 90 04/14 1246 Resp 24 04/14 1246 O2 Delivery OXYGEN 04/14 1626 Exam: General appearance: alert, awake, tachypneic with conversation or activity Eyes: anicteric, PERRLA ENT: mucous membranes moist, pharynx normal Neck: non-tender, supple, no LAD Cardiovascular: regular rate & rhythm, normal peripheral pulses Respiratory: bilateral expiratory wheezes, diminished LLL with fine crackles ABD: no rebound, soft, no tenderness, no guarding, no organomegaly, no palpable mass, bowel sounds present, obese Extremities: moves all, no peripheral edema, warm, no calf tenderness Skin: dry, warm Neuro: alert, oriented, speech clear, no focal deficit Lab data: Labs: Laboratory Tests 04/15/17 0505: Sodium 135 L, Potassium 4.3, Chloride 101, Carbon Dioxide 27, BUN 6 L, Creatinine 0.8, Estimated Creat Clear 201 H, Estimated GFR (MDRD) 78, Glucose 167 H, Calcium 9.7, WBC 10.8, RBC 5.24, Hgb 15.6, Hct 47.9 H, MCV 91.4, RDW 14.0, Plt Count 392, MPV 6.7 L, Gran % 89.3 H, Gran # 9.6 H, Lymphocytes % 8.7 L, Monocytes % 1.8, Eosinophils % 0.2, Basophils % 0.1, Lymphocytes # 0.9, Monocytes # 0.2, Eosinophils # 0.0, Basophils # 0.0, PUBS MCHC 32.5, MCH 29.7 04/14/17 1300: Lactic Acid 1.8 04/14/17 1300: Sodium 135 L, Potassium 3.9, Chloride 99, Carbon Dioxide 30, BUN 5 L, Creatinine 0.8, Estimated Creat Clear 202 H, Estimated GFR (MDRD) 78, Glucose 92, Calcium 9.3, Total Bilirubin 0.5, AST 15, ALT 24, Alkaline Phosphatase 77, Creatine Kinase 74, CK-MB (CK-2) Rel Index 0.7, CK and CKMB Interp < 0.5, Troponin I < 0.02, Total Protein 8.4 H, Albumin 3.7, Globulin 4.7 H, Albumin/ Globulin Ratio 0.8 L, D-Dimer < 100, WBC 9.9, RBC 5.13, Hgb 15.3, Hct 46.3, MCV 90.3, RDW 14.2, Plt Count 353, MPV 6.5 L, Gran % 72.1, Gran # 7.1, Lymphocytes % 21.7, Monocytes % 4.6, Eosinophils % 1.0, Basophils % 0.6, Lymphocytes # 2.1, Monocytes # 0.5, Eosinophils # 0.1, Basophils # 0.1, PUBS MCHC 32.8, MCH 29.6 Microbiology 04/14 1300 BLOOD: Anaerobic Blood Culture - RECD 04/14 1300 BLOOD: Aerobic Blood Culture - RECD 04/14 1300 BLOOD: Anaerobic Blood Culture - RECD 04/14 1300 BLOOD: Aerobic Blood Culture - RECD Radiology results: Results: 04/14/17 CXR: IMPRESSION: Atelectasis or infiltrate in the right infrahilar region and left lung base. 04/15/17 CXR: IMPRESSION: Interval development of interstitial edema with normal heart size which may be due to acute plasma volume overload, acute cardiac decompensation, or interstitial pneumonitis. Diagnosis(es): 1. Reactive airway disease with wheezing with acute exacerbation Status: Acute 2. Pneumonia Status: Acute 3. Hypertension Status: Chronic Plan: per Dr. Garrido. (RICA WINSTON APRN) Diagnosis(es): 1. Pneumonia Status: Acute 2. COPD (chronic obstructive pulmonary disease) Status: Chronic 3. Hypertension Status: Chronic 4. Morbid obesity Status: Chronic 5. Nicotine dependence, uncomplicated Status: Chronic Plan: Patient seen and agree with above note. Plan to continue antibiotics, steroids and neb treatments, discussed smoking cessation. (Renaldo Garrido MD) at 0833 at 0997
[2017-04-15 11:56] LABS: NEUTROPHILS 91 % (42-76)
[2017-04-15] MEDS ORDERED: CYMBALTA30 MG PO (12:18)
[2017-04-15] MEDS ORDERED: AMITRIPTYLINE 225 MG PO (12:19)
[2017-04-15] MEDS ORDERED: TOPIRAMATE50 MG PO (12:22)
[2017-04-16] VITALS (9 sets, daily range): BP systolic 148–183; BP diastolic 69–101
--- NOTE | 2017-04-16 08:11 | ACUTE CARE PROGRESS NOTE (QUA) ---
Progress Notes Subjective Date 04/16/17 Time 0807 Note Pt states she is feeling a little better today. Her abdominal muscles are sore from coughing. She is still SOA with any movement. Her oxygen has been weaned but she states when she gets up and moves around she definitely needs it. She slept off and on last night and did eat this morning. She is anxious to get home. Objective Findings Last VS-Temp:97.6 B/P:148/81 Pulse:102 Resp:22 SaO2:90 OXYGEN Last weight lbs:307 oz:5 K.395 Method:Bed Scales CXR - Interval development of interstitial edema with normal heart size which may be due to acute plasma volume overload, acute cardiac decompensation, or interstitial pneumonitis. Exam General appearance: alert, awake, no acute distress Cardiovascular: regular rate & rhythm Respiratory: diminished breath sounds, wheezing, faint LLL rales ABD: non-distended, normal bowel sounds, no rebound, soft, no tenderness, no guarding Extremities: trace pretibial edema bilaterally Assessment/Plan Problem List 1. Pneumonia Status: Acute 2. COPD (chronic obstructive pulmonary disease) Status: Chronic 3. Hypertension Status: Chronic 4. Morbid obesity Status: Chronic 5. Nicotine dependence, uncomplicated Status: Chronic Plan: Will continue current treatment and discuss CXR with Dr. Garrido. This inpt stay is expected to cross 2 MNs from start of care Yes (Batool Mixon) Assessment/Plan Problem List 1. Pneumonia Status: Acute 2. COPD (chronic obstructive pulmonary disease) Status: Chronic 3. Hypertension Status: Chronic 4. Morbid obesity Status: Chronic 5. Nicotine dependence, uncomplicated Status: Chronic Comments: Patient seen and agree with above note. She is down to 2L O2 now, doing better. (Renaldo Garrido MD) at 0811 at 0823
[2017-04-17] VITALS (7 sets, daily range): BP systolic 142–183; BP diastolic 74–89
[2017-04-17 07:18] LABS: HEMOGLOBIN 16.6 g/dL (12.2-16.2); LYMPH # 1.4 K/mm3 (0.7-4.5); LYMPH % 9.3 % (10-50.0)
--- NOTE | 2017-04-17 07:44 | ACUTE CARE PROGRESS NOTE (QUA) ---
Progress Notes Subjective Date 04/17/17 Time 0743 Assessment/Plan Problem List 1. Pneumonia Status: Acute 2. COPD (chronic obstructive pulmonary disease) Status: Chronic 3. Hypertension Status: Chronic 4. Morbid obesity Status: Chronic 5. Nicotine dependence, uncomplicated Status: Chronic This inpt stay is expected to cross 2 MNs from start of care Yes Antibiotic Stewardship (2) Current Culture Results Microbiology 04/14 1300 BLOOD: Anaerobic Blood Culture - RES 04/14 1300 BLOOD: Aerobic Blood Culture - RES Infxn that will respond? Yes Right drug,dose,and route? Yes More targeted antbx? No at 0743
[2017-04-17 08:25] LABS: NEUTROPHILS 91 % (42-76)
--- NOTE | 2017-04-17 08:32 | ACUTE CARE PROGRESS NOTE (QUA) ---
See Addendum Progress Notes Subjective Date 04/17/17 Time 0829 Note Patient states she feels slightly better today. They tried weaning her oxygen last night but every time she gets up her oxygen drops into the 80s. She states she still has some wheezing. She is still coughing. Objective Findings Last VS-Temp:98.5 B/P:142/87 Pulse:89 Resp:18 SaO2:89 OXYGEN Last weight lbs:307 oz:5 K.396 Method:Bed Scales Laboratory Tests 04/17/17 0600: Sodium 137, Potassium 4.4, Chloride 96 L, Carbon Dioxide 35 H, BUN 13, Creatinine 0.9, Estimated Creat Clear 176, Estimated GFR (MDRD) 68, Glucose 136 H, Calcium 9.9, WBC 15.2 H, RBC 5.65 H, Hgb 16.6 H, Hct 51.9 H, MCV 91.9, RDW 13.9, Plt Count 461 H, MPV 6.7 L, Gran % 87.1 H, Gran # 13.3 H, Total Counted 100, Lymphocytes % 9.3 L, Monocytes % 3.2, Eosinophils % 0.2, Basophils % 0.1, Neutrophils 91 H, Lymphocytes (Manual) 5 L, Lymphocytes # 1.4, Monocytes (Manual) 1 L, Monocytes # 0.5, Eosinophils # 0.0, Basophils # 0.0, Atypical Lymphocytes 3, Platelet Estimate SLIGHT INCREASE, PUBS MCHC 32.0, MCH 29.4 Exam General appearance: alert, awake, no acute distress Cardiovascular: regular rate & rhythm Respiratory: expiratory wheezes, no rales ABD: non-distended, normal bowel sounds, no rebound, soft, no tenderness, no guarding Extremities: trace pretibial edema bilaterally Assessment/Plan Problem List 1. Pneumonia Status: Acute 2. COPD (chronic obstructive pulmonary disease) Status: Chronic 3. Hypertension Status: Chronic 4. Morbid obesity Status: Chronic 5. Nicotine dependence, uncomplicated Status: Chronic Plan: Will continue to wean oxygen today. Pt improving. This inpt stay is expected to cross 2 MNs from start of care Yes (Batool Mixon) Assessment/Plan Problem List 1. Pneumonia Status: Acute 2. COPD (chronic obstructive pulmonary disease) Status: Chronic 3. Hypertension Status: Chronic 4. Morbid obesity Status: Chronic 5. Nicotine dependence, uncomplicated Status: Chronic Comments: Patient seen and agree with above note. (Hema PHILLIPS,Renaldo) at 0831 at 0825
[2017-04-17] MEDS ORDERED: HABITROL21 MG/24 H TD (16:51)
[2017-04-17] MEDS ORDERED: Zithromax500 MG PO (16:51)
[2017-04-17] MEDS ORDERED: CEFDINIR300 M1 PO (16:52)
== END 2017-04-17 17:50 | disposition home or self-care (01) | DRG 195 ==
LOC: ER 12:39 → ICU 14:54 → 2ND 16:15 → ICU 16:15 → 2ND 04-15 17:26
PROVIDERS: Emergency Medicine; Family Medicine
DX: J18.9 Pneumonia, unspecified organism (principal); J44.9 Chronic obstructive pulmonary disease, unspecified; I10 Essential (primary) hypertension; Z72.0 Tobacco use
CPT/HCPCS: J0456